=== PATIENT | female | born 1985 | race Caucasian/White ===

== ENCOUNTER → 2016-08-08 | Outpatient (CLI) | payer MEDICAID ==
[~2016-08-08] MED LIST: ALPR0.254; AMOX1TAB12; BUTA1CAP45 PO; CIPR500T78 PO; CPR500T PO; CYCL10TA9; ESTR1TAB24; HYDR-1231 PO; HYDR-3816; IBP800T PO; METO25TA2 PO; METR500T PO; NAPR500T3 PO; OXYC5TAB71; POLY17PO6 PO; SULF1TAB35 PO; TRAM-42 PO; TRAM50TA2 PO; ZOFRAN SL
--- NOTE | 2016-08-08 11:50 | Diagnostic Imaging Report ---
EXAMINATION: Right breast ultrasound. INDICATION: Right breast pain since 2016 when the patient had pain in the right breast. Also light shining through the right breast implant shows a dark area in the upper aspect of the implant. FINDINGS: The four-quadrants and retroareolar region of the right breast were scanned with no underlying abnormality identified. The implant appears within normal limits although the deeper layers of the implant are not well evaluated by ultrasound. IMPRESSION: No suspicious abnormality. MRI could be considered for further evaluation. ACR BI-RADS Category 1: Negative. Dictated by: Dictated on workstation # [id number]
== END ==
LOC: RAD 07:41
PROVIDERS: ATTEND Family Medicine
DX: N64.4 Mastodynia (principal)
CPT/HCPCS: 76641

== ENCOUNTER → 2016-08-29 | Outpatient (CLI) | payer MEDICAID ==
[~2016-08-29] MED LIST changes: +GADOBUTROL 7.5 MMOL/7.5 ML (GADAVIST) VIAL IV ONE; -NAPR500T3 PO; +NAPR500T4 PO
--- NOTE | 2016-08-29 18:25 | Diagnostic Imaging Report ---
TECHNIQUE: Utilizing 1.5 Peyton magnet, patient was placed in a prone position with 8-channel dual breast coil utilized. Axial STIR precontrasted image and axial T1 fat-sat postcontrast high-resolution images obtained. Sagittal T2-weighted images precontrast, bilaterally, as well. Sagittal vibrant temporal images were obtained pre and post contrast with bolus technique utilized of gadolinium. Images are postcontrast immediately and subsequently for 7 minutes. Pre and post contrasted images are then evaluated with [employer] for evaluation of possible angiogenesis. COMPARISON: Ultrasound dated 08/08/2016. INDICATION: Family history of breast cancer, implant rupture. FINDINGS: Post surgical changes of a bilateral mastectomy are noted. Bilateral subpectoral silicone implants are identified. There is no evidence of intracapsular or extracapsular rupture. No significant axillary or internal mammary adenopathy. Increased T2 weighted signal is noted within the posterior depth of the upper inner quadrant of the left breast. This is associated with mild non mass enhancement within the region. This region measures 2.1 x 0.8 cm. No additional suspicious mass or non-mass enhancement within either breast. IMPRESSION: 1. Non-mass enhancement with associated T2 hyperintense signal within the posterior depth of the upper inner quadrant of the left breast is probably benign. Given appearance, this is favored to simply relate to contusion. Recommend a targeted left breast ultrasound for further evaluation. If no sonographic abnormality is identified at this location, a followup breast MRI is recommended in six months to monitor stability. 2. No evidence of implant rupture associated with the bilateral subpectoral silicone implant. BI-RADS category 0: Incomplete, need additional imaging. FOLLOWUP: Second look ultrasound of the upper inner quadrant of the left breast as described above. Dictated by: Dictated on workstation # [id number]
== END ==
LOC: RAD 10:40
PROVIDERS: ATTEND Nurse Practitioner Community Health
DX: Z98.82 Breast implant status; Z80.3 Family history of malignant neoplasm of breast; R92.8 Other abnormal and inconclusive findings on diagnostic imaging of breast
CPT/HCPCS: 77059

== ENCOUNTER → 2016-10-19 | Outpatient (CLI) | payer MEDICAID ==
[~2016-10-19] MED LIST changes: -GADOBUTROL 7.5 MMOL/7.5 ML (GADAVIST) VIAL IV ONE
--- NOTE | 2016-10-19 22:31 | Diagnostic Imaging Report ---
Ultrasound of the left breast INDICATION: Followup MRI The MRI breast exam performed on 08/29/16 noted a small area of non-mass enhancement with associated T2 hyperintense signal in the posterior depth of the upper inner quadrant of the left breast. This finding was felt to be most likely benign but a targeted ultrasound exam of this are was recommended for further study. On this study, there is no discrete solid or cystic mass identified in this area and there is no abnormal shadowing. I suspect that the finding of the MRI exam was indeed benign. However, I would concur with the recommendation of the MRI there was no sonographic abnormality identified, a followup MRI breast exam in 6 months would be obtained for continued evaluation. IMPRESSION: 1. There is no evidence of malignancy and there is no abnormality to correspond to the area of altered signal seen on the MRI exam. A six-month followup MRI exam would be recommended for continued evaluation. 2. These results were discussed with [place] at PIERO Stewart's office. ACR BI-RADS Category 3: Probably benign findings. Dictated by: Dictated on workstation # [id number]
== END ==
LOC: RAD 09:59
PROVIDERS: ATTEND Nurse Practitioner Community Health
DX: N64.59 Other signs and symptoms in breast (principal)
CPT/HCPCS: 76642

== ENCOUNTER 2017-04-27 18:25 | Emergency (ER) | payer MEDICAID ==
[~2017-04-27] VITALS: Ht 162.6 cm; Wt 73.5 kg
[~2017-04-27 18:25] MED LIST changes: +HYDR-34; -HYDR-3816; +NAPR-915 PO; -NAPR500T4 PO
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
--- OUTSIDE RECORDS SUMMARY | 2017-04-27 18:30 | XMS REPORT | Clinical Summary ---
Author Author [facility] Organization [facility] Address Unknown Phone Unavailable Care Team Providers Care Flight Manager Name Role Phone Vivi Akbar PA-C Unavailable Nolan Cordero PCP Berenice Polk Unavailable Unavailable Artie Anders DO Unavailable Jess Howard MD Unavailable Alva Grant RN Unavailable Unavailable Celine Freeman RN Unavailable Unavailable Mychart, Generic Provider Unavailable Unavailable Meg Lee MD Unavailable Unavailable Jessica Diane RN Unavailable Unavailable Jessica Dia RN Unavailable Unavailable Niyah Bee RN Unavailable Unavailable Deepa Montes RN Unavailable Unavailable Kasey Lawrence LPN Unavailable Unavailable Elina Beard APRN Unavailable Priscilla Delong RN Unavailable Unavailable Gordon Geronimo MD Unavailable Vania Flores PA-C Unavailable Ramya Polk RN Unavailable Unavailable Gege Flores RN Unavailable Unavailable Leida Cervantes Unavailable Source Comments Some departments are not documenting in the electronic medical record. If you do not see the information that you expected, contact Release of Information in the Health Information Management department at [phone] for further assistance in locating additional records.[facility] Allergies Active Allergy Reactions Severity Noted Date Comments Aspartame VOMITING, NAUSEA AND Medium 07/31/2013 VOMITING Ondansetron Hcl (Pf) EYE IRRITATION, NAUSEA 01/01/2014 AND VOMITING Current Medications Prescription Sig. Disp. Refills Start End Date Status Date estradiol (ESTRACE) 1 mg Take one tablet daily for 90 Tab 3 06/25/19 Active tablet 3 weeks, off one week and 15 repeat. fluconazole (DIFLUCAN) Take one tablet by mouth 1 Tab 1 07/23/19 Active 150 mg tablet for one dose. June repeat 15 in 3 days. 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 Bilateral nipple sparing mastectomy/Patti ([facility]) 09/26/13 2. Exchange of Patti for silicone implants, 01/07/14 HISTORY: Ms. Mcfarland is a 28 yo, female who [facility]2013 for discussion of prophylactic mastectomy for her BRCA 2 mutation of uncertain significance. She underwent bilateral nipple sparing mastectomy/Patti ([facility]) 09/26/13. Final pathology revealed an intraductal papilloma in the right breast with fibrocystic changes. In the left breast it showed fibrocystic changes. No evidence of malignancy. BREAST IMAGING: Mammogram: Bilateral diagnostic mammogram 04/18/13 ([facility]) revealed extremely dense breast tissue. There were no definite lesions or calcifications. Ultrasound: Right breast ultrasound 04/18/13 ([facility]) was performed for a 6 month follow up of an abnormal right ultrasound on 11/06/12. There was a 1.2 cm cystic biloped lesion with septation at 11:00. There wass nearby blood flow from a vessel passing in the vicinity of the lesion. It did not appear to be suspicious. MRI: Bilateral breast MRI 04/24/13 ([facility]) revealed extremely dense breast tissue with moderate background enhancement. There was no enhancing mass or lesion in either breast. Small nonspecific enhancing foci were noted in the right breast retroareolar measuring 4 mm. 6 month follow up MRI was recommended. REPRODUCTIVE HEALTH: Age at first Menarche: 12 Age at First Live : 23 Age at Menopause: premenopausal : 1 Para: 1 : 2.5 months PERTINENT PMH: Followed by gate manager for palpitations FAMILY HISTORY: Mother with breast and ovarian cancer in her 20s, maternal aunt with breast and ovarian cancer in her 20s, maternal grandmother with breast cancer in her 50s PHYSICAL EXAM on PRESENTATION: Left breast- 1cm soft mobile mass at 3:00, Right breast- 1 x 2 cm soft mobile mass at 12:00 REFERRED BY: Gurvinder Ramsey APRN Resolved Problems Problem Noted Date Resolved Date Breast pain 10/14/2013 04/18/2014 Family History Medical History Relation Name Comments Cancer-Breast Maternal Aunt in 20s (dx with ovarian also) Cancer-Ovarian Maternal Aunt in 20s Cancer Maternal Grandfather Cancer-Lung Maternal Grandfather Cancer-Breast Maternal in 50s Grandmother Heart Attack Maternal Grandmother Cancer-Breast Mother in 20s Cancer-Ovarian Mother in 20s Diabetes Paternal Grandfather Cancer Paternal Grandmother Relation Name Status Comments Maternal Aunt Maternal Aunt Maternal Grandfather Maternal Grandmother Mother Paternal Grandfather Paternal Grandmother Social History Tobacco Use Types Packs/Day Years Used Date Former Smoker Cigarettes 0.5 10 Quit: 07/19/2013 Smokeless Tobacco: Never Used Alcohol Use Drinks/Week oz/Week Comments Yes 3 a month average Sex Assigned at Date Recorded Not on file Last Filed Vital Signs Vital Sign Reading Time Taken Blood Pressure 94/53 10/03/2014 9:20 AM CDT Pulse 78 10/03/2014 9:20 AM CDT Temperature 36.7 C (98.1 F) 07/22/2014 10:57 AM CDT Respiratory Rate 16 04/18/2014 11:38 AM HEALTH EDITOR Oxygen Saturation 100% 07/22/2014 10:57 AM CDT Inhaled Oxygen - - Concentration Weight 62.1 kg (137 lb) 10/03/2014 9:20 AM CDT Height 162.6 cm (5' 4.02") 07/22/2014 10:57 AM CDT Body Mass Index 23.5 10/03/2014 9:20 AM CDT Plan of Treatment Health Maintenance Due Date Last Done Comments PHYSICAL (COMPREHENSIVE) 09/18/1991 EXAM PERTUSSIS VACCINE 09/18/1995 TETANUS VACCINE 2001 CERVICAL CANCER SCREENING 2014 INFLUENZA VACCINE 09/20/2017 Results Not on filefrom Last 3 Months
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
--- OUTSIDE RECORDS SUMMARY | 2017-04-27 18:31 | XMS REPORT ---
Author Author DERRELL MCPHERSON [facility] eClinicalWorks Address Unknown Phone Unavailable Care Team Providers Care Cigarette Machines Mechanic Name Role Phone DERRELL MCPHERSON CP Unavailable Allergies, Adverse Reactions, Alerts Substance Reaction Event Type Zofran rash Drug Allergy Aspartame Info Not Available Drug Allergy Problems Problem Type Condition Code Onset Dates Condition Status Problem Family history of malignant neoplasm, ovary V16.41 Active Problem Routine general medical examination at health care facility V70.0 Active Problem Costochondritis 733.6 Active Problem Papanicolaou smear of cervix with low grade squamous intraepithelial lesion (LGSIL) 795.03 Active Problem Dizziness and giddiness 780.4 Active Problem Palpitations 785.1 Active Problem Unspecified symptom associated with female genital organs 625.9 Active Problem Unspecified abnormal mammogram 793.80 Active Problem Chronic fatigue R53.82 Active Problem Chest pain, unspecified 786.50 Active [...] Problem Unspecified breast screening V76.10 Active Assessment Acute non-recurrent maxillary sinusitis J01.00 Active Problem Other and unspecified ovarian cyst 620.2 Active Problem Screening for malignant neoplasm of the cervix V76.2 Active Medications Medication Code System Code Instructions Start Date End Date Status Dosage Augmentin [facility] [address]-15 875-125 MG Orally every 12 hrs Dec 22, 2015 Jan 01, 2016 1 tablet Procedures Procedure Coding System Code Date Office Visit, Est Pt., Level 3 CPT-4 69725 Dec 22, 2015 Vital Signs Date/Time: Dec 22, 2015 Cardiac Monitoring Heart Rate 86 bpm Weight 154 lbs Height 65 in BMI 25.62 Index Blood Pressure Diastolic 62 mmHg Blood Pressure Systolic 98 mmHg Results No Known Results Summary Purpose eClinicalWorks Submission
--- OUTSIDE RECORDS SUMMARY | 2017-04-27 18:31 | XMS REPORT ---
Author Author DUGLAS FARR Organization [employer]Clinical[employer] Address Unknown Phone Unavailable Care Team Providers Care Car Oiler Name Role Phone DUGLAS FARR CP Unavailable Allergies No Known Allergies Problems Problem Type Condition Code Onset Dates [...] Active Problem Unspecified breast screening V76.10 Active Problem Other and unspecified ovarian cyst 620.2 Active Problem Screening for malignant neoplasm of the cervix V76.2 Active Medications No Known Medications Results No Known Results Summary Purpose eClinicalWorks Submission
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
--- NOTE | 2017-04-27 19:24 | ED Upper Extremity ---
General Chief Complaint: Upper Extremity Stated Complaint: L THUMB/HAND INJ Nursing Triage Note: LEFT WRIST/THUMB PAIN Nursing Sepsis Screen: No Definite Risk Source: patient Exam Limitations: no limitations History of Present Illness Date Seen by Provider: Apr 27, 2017 Time Seen by Provider: 19:22 Initial Comments Patient fell at home hyperextending the left thumb. She now has limited range of motion and pain. She also struck the back of her head. No headache nausea vomiting and there was no loss of consciousness. Onset: just prior to arrival Severity: moderate Pain/Injury Location: left thumb Modifying Factors: Worse With Movement Allergies and Home Medications Allergies Coded Allergies: aspartame (Unverified Allergy, Unknown, 07/01/14) Uncoded Allergies: ZOFRAN (Allergy, Unknown, 04/27/17) Patient Home Medication List Home Medication List Reviewed: Yes Constitutional: see HPI EENTM: see HPI Respiratory: no symptoms reported Cardiovascular: no symptoms reported Genitourinary: no symptoms reported Musculoskeletal: no symptoms reported Skin: no symptoms reported Psychiatric/Neurological: No Symptoms Reported (years) Past Kmhlyin-Spdkig-Bjmuez Hx Patient Social History Alcohol Use: Rarely Uses Recreational Drug Use: No Smoking Status: Former Smoker Type Used: Cigarettes Recent Foreign Travel: No Contact w/Someone Who Travel: No Recent Infectious Disease Expo: No Recent Hopitalizations: No Immunizations Up To Date Tetanus Booster (TDap): Less than 5yrs PED Vaccines UTD: Yes Date of Influenza Vaccine: Feb 20, 2013 Seasonal Allergies Seasonal Allergies: No Surgeries History of Surgeries: Yes (LEEP, MASTECTOMY, BREAST RECONSTRUCTION, WISDOM TEETH, LAPAROSCOPY) Surgeries: Abdominal, Adenoidectomy, Breast, Hysterectomy, Lumpectomy, Oophorectomy, Orthopedic, Tonsillectomy Respiratory History of Respiratory Disorde: Yes Respiratory Disorders: Asthma Cardiovascular History of Cardiac Disorders: Yes Cardiac Disorders: Irregular Heartbeat, Palpitations Neurological History of Neurological Disord: Yes Neurological Disorders: Headaches /Migraines Reproductive System : No Hx 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 +) Sexually Transmitted Disease: No HIV/AIDS: No LEGAL REFEREE History: Hysterectomy Genitourinary History of Genitourinary Disor: No Gastrointestinal History of Gastrointestinal Di: No Musculoskeletal History of Musculoskeletal Dis: Yes Musculoskeletal Disorders: Arthritis Endocrine History of Endocrine Disorders: No HEENT History of HEENT Disorders: No Cancer History of Cancer: No (BRCA GENE + CARRIER) Psychosocial History of Psychiatric Problem: Yes Behavioral Health Disorders: Anxiety Integumentary History of Skin or Integumenta: No Blood Transfusions History of Blood Disorders: No Adverse Reaction to a Blood Tr: No Physical Exam Vital Signs Vital Signs - First Documented 04/27/17 18:55 Temp 98.2 Pulse 79 Resp 16 B/P (MAP) 107/59 (75) Pulse Ox 100 O2 Delivery Room Air Capillary Refill : Less Than 3 Seconds General Appearance: WD/WN, no apparent distress HEENT: PERRL/EOMI, normal ENT inspection, other (There is no palpable scalp hematoma or depressed skull fracture or bleeding or laceration) Neck: non-tender, full range of motion Cardiovascular: regular rate, rhythm, no murmur Respiratory: normal breath sounds, no respiratory distress, no accessory muscle use Gastrointestinal: normal bowel sounds, non tender Shoulder: normal inspection, non-tender Elbow/Forearm: normal inspection, non-tender, Left Wrist: Yes normal inspection, Yes non-tender Hand: Left, limited ROM (limited range of motion as far as flexion and extension is concerned with the thumb. She is however able to do both of these things. There is a bit of swelling circumferentially about the thumb. No ecchymosis.) Neurologic/Tendon: normal sensation, normal motor functions, normal tendon functions Neurologic/Psychiatric: alert, normal mood/affect, oriented x 3 Skin: normal color, warm/dry Progress/Results/Core Measures Results/Orders My Orders Orders - ELMO DUNCAN APRN Hand, Left, 3 Views (04/27/17 19:21) Vital Signs/I&O Vital Sign - Last 12Hours 04/27/17 18:55 Temp 98.2 Pulse 79 Resp 16 B/P (MAP) 107/59 (75) Pulse Ox 100 O2 Delivery Room Air Blood Pressure Mean: 75 Departure Communication (Admissions) Progress Notes Based on her absence of symptoms concerning for intracranial hemorrhage there is no value in getting a CT scan of the head.NAME: SARAHSERINA MED REC#: [id number] PT STATUS: REG ER : 1985 PHYSICIAN: ELMO DUNCAN APRN ADMIT DATE: 04/27/17/ER Draft Date of Exam:04/27/17 HAND, LEFT, 3 VIEWS Clinical indication: Patient fell off trampoline and complains of pain in first digit. Exam: X-ray of the left hand, 3 views. Comparison: None. Findings: There is no acute fracture or dislocation. There is no significant bone or joint abnormality. The scapholunate interval is within normal limits. First digit shows no gross abnormality. Impression: There is no acute fracture or dislocation. Dictated on workstation # [id number] Dict: 04/27/171941 Trans: 04/27/171945 [facility] [id number] Interpreted by: RAMANA DODGE MD Electronically signed by: Impression Impression: Primary Impression: Thumb sprain Disposition: 01 HOME, SELF-CARE Condition: Stable Departure-Patient Inst. Decision time for Depature: 19:23 Referrals: DUGLAS FARR (PCP/Family) Primary Care Physician Patient Instructions: Sprained Thumb Add. Discharge Instructions: Return to ER for any concerns 2. Follow-up with your doctor next weekAll discharge instructions reviewed with patient and/or family. Voiced understanding. ELMO DUNCAN APRN Apr 27, 2017 19:24
--- NOTE | 2017-04-27 19:46 | Diagnostic Imaging Report ---
Clinical indication: Patient fell off trampoline and complains of pain in first digit. Exam: X-ray of the left hand, 3 views. Comparison: None. Findings: There is no acute fracture or dislocation. There is no significant bone or joint abnormality. The scapholunate interval is within normal limits. First digit shows no gross abnormality. Impression: There is no acute fracture or dislocation. Dictated by: Dictated on workstation # [id number]
[2017-04-27 19:53] VITALS: BP 107/59
[2017-04-28] MEDS ORDERED: HYDR-757 PO (15:16)
== END 2017-04-27 19:52 | disposition home or self-care (01) ==
LOC: EDUNIT# 18:25 → ER 18:27
DX: S63.602A Unspecified sprain of left thumb, initial encounter (principal); J45.909 Unspecified asthma, uncomplicated; G43.909 Migraine, unspecified, not intractable, without status migrainosus; F41.9 Anxiety disorder, unspecified; Z90.710 Acquired absence of both cervix and uterus; Z90.89 Acquired absence of other organs; Z91.09 Other allergy status, other than to drugs and biological substances; Z87.891 Personal history of nicotine dependence; Z88.8 Allergy status to other drugs, medicaments and biological substances; W18.30XA Fall on same level, unspecified, initial encounter; X50.0XXA Overexertion from strenuous movement or load, initial encounter; Y92.009 Unspecified place in unspecified non-institutional (private) residence as the place of occurrence of the external cause
CPT/HCPCS: 73130

== ENCOUNTER 2017-04-28 13:06 | Emergency (ER) | payer MEDICAID ==
[~2017-04-28] VITALS: Ht 162.6 cm; Wt 73.5 kg
[2017-04-28] MEDS ORDERED: morphine INJ 10 MG/ML 1ML (SYR OR VIAL) ONE (13:12)
--- NOTE | 2017-04-28 13:29 | ED Lower Extremity ---
General Chief Complaint: Trauma-Non Activation Stated Complaint: BACK PAIN-THROWN FROM HORSE Nursing Triage Note: was thrown from horse. pain to lumbar, rt hip and upper neck. collar in place History of Present Illness Date Seen by Provider: Apr 28, 2017 Time Seen by Provider: 13:23 Initial Comments Patient is a 31-year-old female who arrived by [facility] to the emergency room with reports of being bucked off horse. Patient is alert and oriented at this time patient denies LOC, she states that she landed on her right hip and complains of lower back pain and right hip pain, she states that she did hit her head when she fell. Location Injury Occurred: home Onset: just prior to arrival Pain/Injury Location: right hip Method of Injury: fell, other (bucked off a horse) Modifying Factors: Improves With Immobilization Allergies and Home Medications Allergies Coded Allergies: aspartame (Unverified Allergy, Unknown, 07/01/14) Uncoded Allergies: ZOFRAN (Allergy, Unknown, 04/27/17) Patient Home Medication List Home Medication List Reviewed: Yes Constitutional: no symptoms reported, see HPI EENTM: see HPI, no symptoms reported Respiratory: no symptoms reported, see HPI Cardiovascular: no symptoms reported, see HPI Gastrointestinal: no symptoms reported, see HPI Genitourinary: no symptoms reported, see HPI Musculoskeletal: joint pain (right hip.), neck pain, other Skin: no symptoms reported, see HPI Psychiatric/Neurological: No Symptoms Reported, See HPI ( regular feeds and PND ) Past Lnmgabd-Diphpf-Jwegas Hx Patient Social History Alcohol Use: Denies Use Recreational Drug Use: No Type Used: Cigarettes Recent Hopitalizations: No Physical Abuse: No Sexual Abuse: No Mistreated: No Fear: No Immunizations Up To Date Tetanus Booster (TDap): Less than 5yrs PED Vaccines UTD: Yes Date of Influenza Vaccine: Feb 20, 2013 Seasonal Allergies Seasonal Allergies: No Surgeries History of Surgeries: Yes (LEEP, MASTECTOMY, BREAST RECONSTRUCTION, WISDOM TEETH, LAPAROSCOPY) Surgeries: Abdominal, Adenoidectomy, Breast, Hysterectomy, Lumpectomy, Oophorectomy, Orthopedic, Tonsillectomy Respiratory History of Respiratory Disorde: Yes Respiratory Disorders: Asthma Cardiovascular History of Cardiac Disorders: Yes Cardiac Disorders: Irregular Heartbeat, Palpitations Neurological History of Neurological Disord: Yes Neurological Disorders: Headaches /Migraines Reproductive System Hx 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 +) Sexually Transmitted Disease: No HIV/AIDS: 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 Genitourinary History of Genitourinary Disor: No Gastrointestinal History of Gastrointestinal Di: No Musculoskeletal History of Musculoskeletal Dis: Yes Musculoskeletal Disorders: Arthritis Endocrine History of Endocrine Disorders: No HEENT History of HEENT Disorders: No Cancer History of Cancer: No (BRCA GENE + CARRIER) Psychosocial History of Psychiatric Problem: Yes Behavioral Health Disorders: Anxiety Suicide Risk Score: 0 Integumentary History of Skin or Integumenta: No Blood Transfusions History of Blood Disorders: No Adverse Reaction to a Blood Tr: No Physical Exam Vital Signs Vital Signs - First Documented 04/28/17 13:08 Temp 97.9 Pulse 80 Resp 18 B/P (MAP) 122/72 (89) Pulse Ox 100 Capillary Refill : General Appearance: WD/WN, no apparent distress HEENT: PERRL/EOMI, normal ENT inspection Neck: normal inspection, other (in rigid cervical collar.) Cardiovascular: normal peripheral pulses, regular rate, rhythm, no edema, no gallop, no JVD, no murmur Respiratory: chest non-tender, lungs clear, normal breath sounds, no respiratory distress Gastrointestinal: normal bowel sounds, non tender, soft Back: normal inspection (lumbar tenderness on palpation) Hips: right hip normal inspection, right hip pain Legs: bilateral leg non-tender Knees: bilateral knee non-tender Ankles: bilateral ankle non-tender Feet: bilateral foot non-tender Neurologic/Tendon: normal sensation Neurologic/Psychiatric: no motor/sensory deficits, alert, normal mood/affect, oriented x 3 Skin: normal color, warm/dry Lymphatic: no adenopathy Comments Patient was given 4 mg of morphine on arrival to emergency room for pain, patient arrived on a spine board and in a rigid cervical collar. C-spine was maintained patient was log rolled and and patient was very tender in the lumbar spine on palpation. Progress/Results/Core Measures Results/Orders Lab Results Laboratory Tests Test 04/28/17 14:09 Range/Units White Blood Count 18.0 H 4.3-11.0 10^3/uL Red Blood Count 4.07 L 4.35-5.85 10^6/uL Hemoglobin 12.1 11.5-16.0 G/DL Hematocrit 35 35-52 % Mean Corpuscular Volume 86 80-99 FL Mean Corpuscular Hemoglobin 30 25-34 PG Mean Corpuscular Hemoglobin Concent 35 32-36 G/DL Red Cell Distribution Width 12.7 10.0-14.5 % Platelet Count 283 130-400 10^3/uL Mean Platelet Volume 9.7 7.4-10.4 FL Neutrophils (%) (Auto) 85 H 42-75 % Lymphocytes (%) (Auto) 8 L 12-44 % Monocytes (%) (Auto) 6 0-12 % Eosinophils (%) (Auto) 0 0-10 % Basophils (%) (Auto) 0 0-10 % Neutrophils # (Auto) 15.3 H 1.8-7.8 X 10^3 Lymphocytes # (Auto) 1.5 1.0-4.0 X 10^3 Monocytes # (Auto) 1.1 H 0.0-1.0 X 10^3 Eosinophils # (Auto) 0.0 0.0-0.3 10^3/uL Basophils # (Auto) 0.0 0.0-0.1 10^3/uL Neutrophils % (Manual) 85 % Lymphocytes % (Manual) 10 % Monocytes % (Manual) 3 % Eosinophils % (Manual) 0 % Basophils % (Manual) 0 % Band Neutrophils 2 % Blood Morphology Comment NORMAL Sodium Level 138 135-145 MMOL/L Potassium Level 3.6 3.6-5.0 MMOL/L Chloride Level 105 98-107 MMOL/L Carbon Dioxide Level 26 21-32 MMOL/L Anion Gap 7 5-14 MMOL/L Blood Urea Nitrogen 20 H 7-18 MG/DL Creatinine 0.77 0.60-1.30 MG/DL Estimat Glomerular Filtration Rate > 60 BUN/Creatinine Ratio 26 Glucose Level 95 70-105 MG/DL Calcium Level 9.3 8.5-10.1 MG/DL Total Bilirubin 0.6 0.1-1.0 MG/DL Aspartate Amino Transf (AST/SGOT) 36 H 5-34 U/L Alanine Aminotransferase (ALT/SGPT) 29 0-55 U/L Alkaline Phosphatase 82 40-136 U/L Total Protein 7.6 6.4-8.2 GM/DL Albumin 4.4 3.2-4.5 GM/DL My Orders Orders - ELMO DUNCAN APRN Morphine Injection (Morphine Injection (04/28/17 13:30) Ct Lumbar Spine Wo (04/28/17 13:16) Ct Head/Cervical Spine Wo (04/28/17 13:16) Pelvis With Right Hip 2-3views (04/28/17 13:16) Cbc With Automated Diff (04/28/17 13:16) Comprehensive Metabolic Panel (04/28/17 13:16) Manual Differential (04/28/17 14:09) Medications Given in ED Current Medications Medications Dose Ordered Sig/Devante Route Start Time Stop Time Status Last Admin Dose Admin Morphine Sulfate 10 mg STK-MED ONCE .ROUTE 04/28/17 13:12 04/28/17 13:15 DC 04/28/17 13:18 10 MG Vital Signs/I&O Vital Sign - Last 12Hours 04/28/17 13:08 Temp 97.9 Pulse 80 Resp 18 B/P (MAP) 122/72 (89) Pulse Ox 100 Departure Communication (Admissions) Progress Notes CT scan shows a zone 2 sacral fracture on the left. I discussed this with Dr. Barker nylon mender for orthopedic surgery. Recommends at this is an incomplete fracture she can be weightbearing as tolerated, pain control. There was no mention of complete versus incomplete and CT reports I then spoke with Dr. Barrett from radiology. He believes this to be an incomplete fracture. Impression Impression: Primary Impression: Sacral fracture Disposition: 01 HOME, SELF-CARE Condition: Stable Departure-Patient Inst. Decision time for Depature: 15:14 Referrals: JOSE VENTURA MD, WILLIAM T ARNP (PCP) Primary Care Physician CONG LEVINE JONATHAN MD IPSEN,NUNO AYON,MANI AGUSTIN,JUAN ANTONIO FINNEGAN MD, MICHAEL P MD Patient Instructions: NO INSTRUCTIONS GIVEN Add. Discharge Instructions: 1. Weightbearing as tolerated 2. Pain medication as directed 3. No horseback riding, physical activity such as bicycle riding, ATV riding or sports for the next 6-8 weeks. Follow-up with orthopedics. Call the orthopedic surgeons listed on Monday to make an appointment to be seen within the next few weeks. Return to ER for any worsened pains, numbness, loss of bowel or bladder control, loss of sensation of your genitals or other concerns. All discharge instructions reviewed with patient and/or family. Voiced understanding. Scripts Hydrocodone/Acetaminophen ([place] 5-325 Tablet) 1 Each Tablet 1 EACH PO Q4H Y for PAIN-MODERATE TO SEVERE, #60 TAB Prov: ELMO DUNCAN APRN 04/28/17 ELMO DUNCAN APRN Apr 28, 2017 13:29
[2017-04-28] MEDS ORDERED: morphine INJ 10 MG/ML 1ML (SYR OR VIAL) IVP ONE ×2 (13:30→15:30)
--- NOTE | 2017-04-28 14:03 | Diagnostic Imaging Report ---
INDICATION: Pelvic pain status post injury COMPARISON: None. FINDINGS: AP view of the pelvis and 2 dedicated radiographic views of the right hip were obtained. There is no fracture, dislocation, bone destruction, or radiopaque foreign body. No significant degenerative changes are present in the hip joints. The visualized pelvic osseous structures and the SI joints demonstrate no acute fracture or dislocation. There is no bone destruction or radiopaque foreign body. The surrounding soft tissue structures are unremarkable. IMPRESSION: 1. No acute fracture or dislocation in the pelvis or right hip joint. Dictated by: Dictated on workstation # [id number]
--- NOTE | 2017-04-28 14:14 | Diagnostic Imaging Report ---
PROCEDURE: CT lumbar spine without contrast. TECHNIQUE: Multiple contiguous axial images were obtained through the lumbar spine without the use of intravenous contrast. Sagittal and coronal reformations were then performed. INDICATION: Low back pain after fall from horse. Comparison: CT from 12/25/2015 FINDINGS: For the purposes of this exam there are five lumbar type vertebral bodies with the last well formed disk space designated L5-S1. There is normal alignment of the lumbar spine without significant spondylolisthesis. The vertebral body heights are preserved. The disc heights are preserved. No bony fragments or hyperdense fluid collections are seen in the spinal canal. No prevertebral or paraspinous masses are seen. There is a minimally displaced fracture of the left sacrum, which extends into the left S2-3 neuroforamen (image 55 series 5). Level specific: L1/L2: No spinal canal or foraminal stenosis. L2/L3: Minimal diffuse disc bulge, no spinal canal or foraminal stenosis. L3/L4: Minimal diffuse disc bulge. No spinal canal or foraminal stenosis. L4/L5: Diffuse disc bulge. No spinal canal stenosis. Mild to moderate right and moderate left foraminal stenosis. L5/S1: Disc bulge, no spinal canal or foraminal stenosis. IMPRESSION: 1. Minimally displaced zone 2 fracture of the left sacrum. 2. Mild degenerative disc disease at L4-5 resulting in moderate left foraminal stenosis. No spinal canal stenosis. Dictated by: Dictated on workstation # [id number]
[2017-04-28 14:15] LABS: BASOPHILS % (AUTO) 0 % (0-10); EOSINOPHILS % (AUTO) 0 % (0-10); HEMATOCRIT 35 % (35-52); HEMOGLOBIN 12.1 G/DL (11.5-16.0); LYMPHOCYTES # (AUTO) 1.5 X 10^3 (1.0-4.0); LYMPHOCYTES % (AUTO) 8 % (12-44); MEAN CORPUSCULAR HEMOGLOBIN 30 PG (25-34); MEAN CORPUSCULAR HGB CONC 35 G/DL (32-36); MEAN CORPUSCULAR VOLUME 86 FL (80-99); MEAN PLATELET VOLUME 9.7 FL (7.4-10.4); MONOCYTES # (AUTO) 1.1 X 10^3 (0.0-1.0); MONOCYTES % (AUTO) 6 % (0-12); NEUTROPHILS # (AUTO) 15.3 X 10^3 (1.8-7.8); NEUTROPHILS % (AUTO) 85 % (42-75); PLATELET COUNT 283 10^3/uL (130-400); RED BLOOD COUNT 4.07 10^6/uL (4.35-5.85); RED CELL DISTRIBUTION WIDTH 12.7 % (10.0-14.5)
--- NOTE | 2017-04-28 14:15 | Diagnostic Imaging Report ---
PROCEDURE: CT head and CT cervical spine without contrast. TECHNIQUE: Multiple contiguous axial images were obtained through the brain and cervical spine without the use of intravenous contrast. Sagittal and coronal reformations through the cervical spine were then performed. INDICATION: Patient was thrown from a horse, complaining of head and neck pain. Comparison is made with prior CT of the brain and cervical spine from 04/12/2013. CT BRAIN: The ventricles and sulci are within normal limits. No sulcal effacement is identified. No midline shift is seen. There is no acute intra-axial or extra-axial hemorrhage. Cisterns are patent. The visualized paranasal sinuses are clear. IMPRESSION: No acute intracranial process is detected. CT CERVICAL SPINE: Curvature and alignment is normal. Prevertebral tissues are normal. No fracture or subluxation is identified. The odontoid is intact. IMPRESSION: No acute bony abnormality is detected. Dictated by: Dictated on workstation # [id number]
[2017-04-28 14:30] LABS: BAND NEUTROPHILS 2 %; BASOPHILS % (MANUAL) 0 %; EOSINOPHILS % (MANUAL) 0 %; LYMPHOCYTES % (MANUAL) 10 %; MONOCYTES % (MANUAL) 3 %; NEUTROPHILS % (MANUAL) 85 %; RBC MORPH NORMAL
[2017-04-28 14:39] LABS: ALANINE AMINOTRANSFERASE 29 U/L (0-55); ALBUMIN 4.4 GM/DL (3.2-4.5); ALKALINE PHOSPHATASE 82 U/L (40-136); BILIRUBIN,TOTAL 0.6 MG/DL (0.1-1.0); BUN/CREATININE RATIO 26; CALCIUM 9.3 MG/DL (8.5-10.1); CARBON DIOXIDE 26 MMOL/L (21-32); CHLORIDE 105 MMOL/L (98-107); CREATININE SERUM 0.77 MG/DL (0.60-1.30); GFR ESTIMATED > 60; GLUCOSE 95 MG/DL (70-105); POTASSIUM 3.6 MMOL/L (3.6-5.0); SODIUM 138 MMOL/L (135-145); TOTAL PROTEIN 7.6 GM/DL (6.4-8.2)
[2017-04-28] MEDS ORDERED: HYDR-757 PO (15:16)
[2017-04-28 15:43] VITALS: BP 120/71
--- OUTSIDE RECORDS SUMMARY | 2017-04-30 04:28 | XMS REPORT | Clinical Summary ---
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 [employer] Name Role Phone Vivi Akbar PA-C Unavailable Nolan Cordero PCP Berenice Polk Unavailable Unavailable Artie Anders DO Unavailable Jess Howard MD Unavailable Alva Grant RN Unavailable Unavailable Celine Freeman RN Unavailable Unavailable Mychart, Generic Provider Unavailable Unavailable eMg Lee MD Unavailable Unavailable Jessica Diane RN [...] in the Health Information Management department at [phone] for further assistance in locating additional records.[facility] Allergies Active Allergy Reactions Severity Noted Date [...] IMAGING: Mammogram: Bilateral diagnostic mammogram 04/18/13 ([facility] revealed extremely dense breast tissue. There were no definite lesions or calcifications. 

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
== END 2017-04-28 15:47 | disposition home or self-care (01) ==
LOC: EDUNIT# 13:06 → ER 13:08
DX: S32.121A Minimally displaced Zone II fracture of sacrum, initial encounter for closed fracture (principal); J45.909 Unspecified asthma, uncomplicated; G43.909 Migraine, unspecified, not intractable, without status migrainosus; F41.9 Anxiety disorder, unspecified; Z88.6 Allergy status to analgesic agent; Z91.09 Other allergy status, other than to drugs and biological substances; Z90.89 Acquired absence of other organs; Z90.710 Acquired absence of both cervix and uterus; V80.010A Animal-rider injured by fall from or being thrown from horse in noncollision accident, initial encounter
CPT/HCPCS: 36415; 70450; 72125; 72131; 80053; 85007; 85027

== ENCOUNTER 2017-07-22 01:48 | Emergency (ER) | payer MEDICAID ==
[~2017-07-22] VITALS: Ht 165.1 cm; Wt 77.1 kg
[~2017-07-22 01:48] MED LIST changes: +HYDR-757 PO
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
--- OUTSIDE RECORDS SUMMARY | 2017-07-22 01:55 | XMS REPORT | Clinical Summary ---
Author Author [facility] Organization [facility] Address Unknown Phone Unavailable Care Team Providers Care Cloud Systems Administrator Name Role Phone Vivi Akbar PA-C Unavailable [...] in the Health Information Management department at [phone] for further assistance in locating additional records.[facility] Allergies Active Allergy Reactions Severity Noted [...] IMAGING: Mammogram: Bilateral diagnostic mammogram 04/18/13 ([facility]) revealed extremely dense breast tissue. There were no definite lesions or calcifications. 

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
--- NOTE | 2017-07-22 02:09 | ED General ---
General Chief Complaint: General Problems/Pain Stated Complaint: UPPER ABD PAIN,PAIN IN NECK & SHOULDERS,COLD SWEAT Source of Information: Patient Exam Limitations: No Limitations History of Present Illness Date Seen by Provider: Jul 22, 2017 Time Seen by Provider: 01:45 Initial Comments Here with vague complaints of chest tightness, upper abdominal pain, neck and back pain, cold sweats and generally not feeling well. This is been going on for 4 days intermittently but worse tonight. Denies vomiting but does have nausea. Denies dysuria. Reports that she's had multiple tick bites. 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 Timing/Duration: 3-4 Days, Changing Over Time Severity: Moderate Modifying Factors: improves with Rest Associated Systoms: Chest Pain; No Cough, No Fever/Chills; Loss of Appetite, Nausea/Vomiting; No Shortness of Air; Weakness Allergies and Home Medications Allergies Coded Allergies: aspartame (Unverified Allergy, Unknown, 07/01/14) Uncoded Allergies: ZOFRAN (Allergy, Unknown, 04/27/17) Home Medications Hydrocodone/Acetaminophen 1 Each Tablet, 1 EACH PO Q4H PRN for PAIN-MODERATE TO SEVERE Prescribed by: ELMO DUNCAN on 04/28/17 1516 Patient Home Medication List Home Medication List Reviewed: Yes Review of Systems Constitutional: see HPI; No chills, No fever EENTM: no symptoms reported Respiratory: No cough, No short of breath Cardiovascular: chest pain (Central tightness); No edema; palpitations Gastrointestinal: No abdominal pain; nausea; No vomiting Genitourinary: No dysuria, No pain : No Musculoskeletal: no symptoms reported Skin: no symptoms reported Psychiatric/Neurological: No Symptoms Reported All Other Systems Reviewed Negative Unless Noted: Yes Past Xxmjsue-Jixifl-Tbdhjs Hx Past Med/Social Hx: Reviewed Nursing Past Med/Soc Hx Patient Social History Alcohol Use: Occasionally Uses Recreational Drug Use: No Smoking Status: Former Smoker Type Used: Cigarettes Recent Foreign Travel: No Contact w/Someone Who Travel: No Recent Hopitalizations: No Physical Abuse: No Sexual Abuse: No Mistreated: No Fear: No Immunizations Up To Date Tetanus Booster (TDap): Less than 5yrs PED Vaccines UTD: Yes Date of Influenza Vaccine: Feb 20, 2013 Seasonal Allergies Seasonal Allergies: No Past Medical History Surgeries: Yes (LEEP, MASTECTOMY, BREAST RECONSTRUCTION, WISDOM TEETH, LAPAROSCOPY) Abdominal, Adenoidectomy, Breast, Hysterectomy, Lumpectomy, Oophorectomy, Orthopedic, Tonsillectomy Respiratory: Yes Asthma Cardiac: Yes Irregular Heartbeat, Palpitations Neurological: Yes Headaches /Migraines 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 +) 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 Sexually Transmitted Disease: No HIV/AIDS: No Genitourinary: No Gastrointestinal: No Musculoskeletal: Yes Arthritis Endocrine: No HEENT: No Cancer: No (BRCA GENE + 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) Psychosocial: Yes Anxiety Nursing Suicide Risk Score: 0 Integumentary: No Blood Disorders: No Adverse Reaction/Blood Tranf: No Family Medical History Reviewed Nursing Family Hx No Pertinent Family Hx Physical Exam Vital Signs Vital Signs - First Documented 07/22/17 01:53 Temp 97.6 Pulse 74 Resp 18 B/P (MAP) 140/100 (113) Pulse Ox 100 O2 Delivery Room Air Capillary Refill : General Appearance: No Apparent Distress, WD/WN HEENT: PERRL/EOMI, Pharynx Normal Neck: Non Tender, Supple Respiratory: Lungs Clear, Normal Breath Sounds Cardiovascular: Regular Rate, Rhythm, No Murmur Gastrointestinal: Non Tender, Soft Back: Normal Inspection, No CVA Tenderness, No Vertebral Tenderness Extremity: Normal Range of Motion, Non Tender Neurologic/Psychiatric: Alert, Oriented x3 Skin: Normal Color, Warm/Dry Progress/Results/Core Measures Suspected Sepsis SIRS Temperature: Pulse: Respiratory Rate: Laboratory Tests 07/22/17 02:25: White Blood Count 7.5 Blood Pressure / Mean: Laboratory Tests 07/22/17 02:25: Creatinine 0.79, Platelet Count 316, Total Bilirubin 0.2 Results/Orders Lab Results Laboratory Tests Test 07/22/17 02:14 07/22/17 02:25 Range/Units Urine Color YELLOW Urine Clarity CLEAR Urine pH 7 5-9 Urine Specific [place] 1.010 L 1.016-1.022 Urine Protein NEGATIVE NEGATIVE Urine Glucose (UA) NEGATIVE NEGATIVE Urine Ketones NEGATIVE NEGATIVE Urine Nitrite NEGATIVE NEGATIVE Urine Bilirubin NEGATIVE NEGATIVE Urine Urobilinogen NORMAL NORMAL MG/DL Urine Leukocyte Esterase 1+ H NEGATIVE Urine RBC (Auto) NEGATIVE NEGATIVE Urine RBC NONE /HPF Urine WBC RARE /HPF Urine Squamous Epithelial Cells 0-2 /HPF Urine Crystals NONE /LPF Urine Bacteria NEGATIVE /HPF Urine Casts NONE /LPF Urine Mucus NEGATIVE /LPF Urine Culture Indicated NO White Blood Count 7.5 4.3-11.0 10^3/uL Red Blood Count 4.31 L 4.35-5.85 10^6/uL Hemoglobin 13.1 11.5-16.0 G/DL Hematocrit 38 35-52 % Mean Corpuscular Volume 88 80-99 FL Mean Corpuscular Hemoglobin 30 25-34 PG Mean Corpuscular Hemoglobin Concent 35 32-36 G/DL Red Cell Distribution Width 13.0 10.0-14.5 % Platelet Count 316 130-400 10^3/uL Mean Platelet Volume 9.8 7.4-10.4 FL Neutrophils (%) (Auto) 50 42-75 % Lymphocytes (%) (Auto) 41 12-44 % Monocytes (%) (Auto) 7 0-12 % Eosinophils (%) (Auto) 2 0-10 % Basophils (%) (Auto) 0 0-10 % Neutrophils # (Auto) 3.8 1.8-7.8 X 10^3 Lymphocytes # (Auto) 3.1 1.0-4.0 X 10^3 Monocytes # (Auto) 0.5 0.0-1.0 X 10^3 Eosinophils # (Auto) 0.2 0.0-0.3 10^3/uL Basophils # (Auto) 0.0 0.0-0.1 10^3/uL Sodium Level 141 135-145 MMOL/L Potassium Level 3.6 3.6-5.0 MMOL/L Chloride Level 106 98-107 MMOL/L Carbon Dioxide Level 22 21-32 MMOL/L Anion Gap 13 5-14 MMOL/L Blood Urea Nitrogen 15 7-18 MG/DL Creatinine 0.79 0.60-1.30 MG/DL Estimat Glomerular Filtration Rate > 60 BUN/Creatinine Ratio 19 Glucose Level 101 70-105 MG/DL Calcium Level 9.4 8.5-10.1 MG/DL Total Bilirubin 0.2 0.1-1.0 MG/DL Aspartate Amino Transf (AST/SGOT) 20 5-34 U/L Alanine Aminotransferase (ALT/SGPT) 23 0-55 U/L Alkaline Phosphatase 96 40-136 U/L C-Reactive Protein High Sensitivity 0.12 0.00-0.50 MG/DL Total Protein 8.1 6.4-8.2 GM/DL Albumin 4.8 H 3.2-4.5 GM/DL My Orders Orders - AKANKSHA GARCES MD Cbc With Automated Diff (07/22/17 02:00) Comprehensive Metabolic Panel (07/22/17 02:00) Hs C Reactive Protein (07/22/17 02:00) Ua Culture If Indicated (07/22/17 02:00) Ekg Tracing (07/22/17 02:00) Chest Pa/Lat (2 View) (07/22/17 02:00) Tick Panel With Lyme Eia (07/22/17 02:00) Vital Signs/I&O 07/22/17 01:53 Temp 97.6 Pulse 74 Resp 18 B/P (MAP) 140/100 (113) Pulse Ox 100 O2 Delivery Room Air Capillary Refill : Progress Note : Progress Note Seen and evaluated. IV, labs, UA, EKG and chest x-ray ordered. Tick panel ordered. Monitor patient. No acute findings. Doxycycline 100 mg by mouth ordered. We will continue this twice a day 10 days. If tick panel is positive , she will need additional 11 days of therapy. Discharged home with return precautions. Patient verbalize understanding instructions and agreement with plan. ECG Initial ECG Impression Date: Jul 22, 2017 Initial ECG Impression Time: 02:31 Initial ECG Rate: 58 Initial ECG Rhythm: Normal Sinus Initial ECG Comparisson: No Previous ECG Available Comment Sinus rhythm with normal axis. No evidence of ST elevation CT. No previous available for comparison. Interpreted by me. Departure Impression Primary Impression: Tick bites Qualified Codes: W57.XXXA - Bitten or stung by nonvenomous insect and other nonvenomous arthropods, initial encounter Disposition: 01 HOME, SELF-CARE Condition: Stable Departure-Patient Inst. Decision time for Depature: 03:41 Referrals: [facility] (PCP) Primary Care Physician DUGLAS FARR (Family) Primary Care Physician Patient Instructions: Insect Bites and Stings (DC), [place] Spotted Fever (DC) Add. Discharge Instructions: All discharge instructions reviewed with patient and/or family. Voiced understanding. Take medications as directed. Follow-up with your DrCyndy in a few days for recheck. Return for worse pain, fever, vomiting, weakness, breathing problems or other concerns as needed. Scripts Doxycycline Hyclate (Doxycycline Hyclate) 100 Mg Tablet 100 MG PO BID, #20 TAB 0 Refills Prov: MILI,AKANKSHA D MD 07/22/17 Work/School Note: Work Release Form Date Seen in the Emergency Department: Jul 22, 2017 Return to Work: Jul 24, 2017 Restrictions: No Restrictions AKANKSHA GARCES MD Jul 22, 2017 02:09
[2017-07-22 02:21] LABS: BILIRUBIN,URINE NEGATIVE (NEGATIVE); CLARITY,URINE CLEAR; COLOR,URINE YELLOW; GLUCOSE, URINE (UA) NEGATIVE (NEGATIVE); KETONES,URINE NEGATIVE (NEGATIVE); LEUKOCYTE ESTERASE ,URINE 1+ (NEGATIVE); NITRITE,URINE NEGATIVE (NEGATIVE); PH,URINE 7 (5-9); PROTEIN,URINE NEGATIVE (NEGATIVE); UROBILINOGEN,URINE NORMAL (NORMAL)
[2017-07-22 02:29] LABS: WBC,URINE RARE /HPF
[2017-07-22 02:30] LABS: BACTERIA,URINE NEGATIVE /HPF; SQUAMOUS EPITHELIAL CELL,UR 0-2 /HPF
[2017-07-22 02:33] LABS: BASOPHILS % (AUTO) 0 % (0-10); EOSINOPHILS # (AUTO) 0.2 10^3/uL (0.0-0.3); EOSINOPHILS % (AUTO) 2 % (0-10); HEMATOCRIT 38 % (35-52); HEMOGLOBIN 13.1 G/DL (11.5-16.0); LYMPHOCYTES # (AUTO) 3.1 X 10^3 (1.0-4.0); LYMPHOCYTES % (AUTO) 41 % (12-44); MEAN CORPUSCULAR HEMOGLOBIN 30 PG (25-34); MEAN CORPUSCULAR HGB CONC 35 G/DL (32-36); MEAN CORPUSCULAR VOLUME 88 FL (80-99); MEAN PLATELET VOLUME 9.8 FL (7.4-10.4); MONOCYTES # (AUTO) 0.5 X 10^3 (0.0-1.0); MONOCYTES % (AUTO) 7 % (0-12); NEUTROPHILS # (AUTO) 3.8 X 10^3 (1.8-7.8); NEUTROPHILS % (AUTO) 50 % (42-75); PLATELET COUNT 316 10^3/uL (130-400); RED BLOOD COUNT 4.31 10^6/uL (4.35-5.85); WHITE BLOOD COUNT 7.5 10^3/uL (4.3-11.0)
[2017-07-22 02:51] LABS: ALANINE AMINOTRANSFERASE 23 U/L (0-55); ALBUMIN 4.8 GM/DL (3.2-4.5); ALKALINE PHOSPHATASE 96 U/L (40-136); BILIRUBIN,TOTAL 0.2 MG/DL (0.1-1.0); BUN/CREATININE RATIO 19; CALCIUM 9.4 MG/DL (8.5-10.1); CARBON DIOXIDE 22 MMOL/L (21-32); CHLORIDE 106 MMOL/L (98-107); CREATININE SERUM 0.79 MG/DL (0.60-1.30); GFR ESTIMATED > 60; GLUCOSE 101 MG/DL (70-105); POTASSIUM 3.6 MMOL/L (3.6-5.0); SODIUM 141 MMOL/L (135-145); TOTAL PROTEIN 8.1 GM/DL (6.4-8.2)
[2017-07-22] MEDS ORDERED: DOXYCYCLINE 100 MG (VIBRAMYCIN) TABLET PO STA (03:38)
[2017-07-22] MEDS ORDERED: DOXY100T2 PO (03:44)
[2017-07-22 03:57] VITALS: BP 138/99
--- NOTE | 2017-07-22 07:33 | Diagnostic Imaging Report ---
INDICATION: Cough. Exam compared 07/04/2014. FINDINGS: The lungs are clear. The heart size and vascularity were normal. There is no effusion or pneumothorax. There is no free air beneath the diaphragms. No acute appearing abnormality. IMPRESSION: Stable normal two-view chest Dictated by: Dictated on workstation # [id number]
[2017-07-27] MEDS ORDERED: DOXY100T19 PO (07:43)
== END 2017-07-22 03:57 | disposition home or self-care (01) ==
LOC: EDUNIT# 01:48 → ER 01:51
DX: T14.8XXA Other injury of unspecified body region, initial encounter (principal); J45.909 Unspecified asthma, uncomplicated; F41.9 Anxiety disorder, unspecified; G43.909 Migraine, unspecified, not intractable, without status migrainosus; Z90.89 Acquired absence of other organs; Z90.710 Acquired absence of both cervix and uterus; Z87.891 Personal history of nicotine dependence; Z88.8 Allergy status to other drugs, medicaments and biological substances; Z91.09 Other allergy status, other than to drugs and biological substances; W57.XXXA Bitten or stung by nonvenomous insect and other nonvenomous arthropods, initial encounter
CPT/HCPCS: 36415; 71046; 80053; 81000; 85025; 86141; 86618; 86666; 86668; 86757; 93005

== ENCOUNTER 2017-08-21 13:36 | Emergency (ER) | payer MEDICAID ==
[~2017-08-21] VITALS: Ht 165.1 cm; Wt 75.7 kg
[~2017-08-21 13:36] MED LIST changes: +DOXY100T19 PO; +DOXY100T2 PO
[2017-08-21] MEDS ORDERED: NS IV 1000 ML 1,000 ML IV SCH (14:00)
[2017-08-21] MEDS ORDERED: PROCHLORPERAZINE 10 MG/2ML INJ (COMPAZINE) IV ONE (14:00)
[2017-08-21] MEDS ORDERED: KETOROLAC 30 MG/ML VIAL IVP ONE (14:00)
[2017-08-21] MEDS ORDERED: diphenhydrAMINE 50 MG/ML INJ (BENADRYL) IVP ONE (14:00)
[2017-08-21 14:10] LABS: BASOPHILS % (AUTO) 0 % (0-10); EOSINOPHILS # (AUTO) 0.1 10^3/uL (0.0-0.3); EOSINOPHILS % (AUTO) 1 % (0-10); HEMATOCRIT 36 % (35-52); HEMOGLOBIN 12.3 G/DL (11.5-16.0); LYMPHOCYTES # (AUTO) 2.5 X 10^3 (1.0-4.0); LYMPHOCYTES % (AUTO) 34 % (12-44); MEAN CORPUSCULAR HEMOGLOBIN 30 PG (25-34); MEAN CORPUSCULAR HGB CONC 35 G/DL (32-36); MEAN CORPUSCULAR VOLUME 87 FL (80-99); MEAN PLATELET VOLUME 10.1 FL (7.4-10.4); MONOCYTES # (AUTO) 0.6 X 10^3 (0.0-1.0); MONOCYTES % (AUTO) 8 % (0-12); NEUTROPHILS % (AUTO) 56 % (42-75); PLATELET COUNT 267 10^3/uL (130-400); RED BLOOD COUNT 4.08 10^6/uL (4.35-5.85); RED CELL DISTRIBUTION WIDTH 12.6 % (10.0-14.5); WHITE BLOOD COUNT 7.2 10^3/uL (4.3-11.0)
--- NOTE | 2017-08-21 14:10 | ED General ---
General Chief Complaint: Head/Cervical Problems Stated Complaint: MIGRAINE,HAS TICK-BORN ILLNESS DIAGNOSIS Nursing Triage Note: PT CO OF MIGRAINE RAND, PT STATES HAS EHRILICHIOSIS AND IS ON 2ND SCRIPT OF DOXY W NO IMPROVEMENT OF SX, PT CO OF RAND AND BODY ACHES, SOME R ARM TINGLING Nursing Sepsis Screen: No Definite Risk Source of Information: Patient Exam Limitations: No Limitations History of Present Illness Date Seen by Provider: Aug 21, 2017 Time Seen by Provider: 14:07 Initial Comments to ER with a multitude of ongoing complaints.She was seen here on 07/22/17 after tick bite had a tick panel drawn. She was started on doxycycline and tick panel showed elevated early ketosis IgG titer. She finished one round of doxycycline but denies improvement. Her primary care provider gave her a second round of doxycycline which she is still taking. She reports headaches constant since 07/22 and worsening in the left parietal area. Tingling in the right face and the right arm. Dizziness. Chest tightness, body aches. Shortness of breath when she goes in the sun, nausea. Timing/Duration: 1-2 Days Severity: Moderate Associated Systoms: Headaches, Malaise, Nausea/Vomiting Allergies and Home Medications Allergies Coded Allergies: aspartame (Unverified Allergy, Unknown, 07/01/14) Uncoded Allergies: ZOFRAN (Allergy, Unknown, 04/27/17) Home Medications Doxycycline Hyclate 100 Mg Tablet, 100 MG PO BID Prescribed by: AKANKSHA GARCES on 07/22/17 0344 Doxycycline Monohydrate 100 Mg Tablet, 100 MG PO BID, (Reported) Hydrocodone/Acetaminophen 1 Each Tablet, 1 EACH PO Q4H PRN for PAIN-MODERATE TO SEVERE Prescribed by: ELMO DUNCAN on 04/28/17 1516 Patient Home Medication List Home Medication List Reviewed: Yes Review of Systems Constitutional: see HPI; No chills, No fever; malaise, weakness EENTM: see HPI Respiratory: see HPI, cough (she had a brief cough this morning only and it has resolved); No hemoptysis, No orthopnea, No short of breath Cardiovascular: see HPI, chest pain; No edema, No palpitations Gastrointestinal: nausea Genitourinary: no symptoms reported Musculoskeletal: no symptoms reported Skin: no symptoms reported; No pruritus, No rash Psychiatric/Neurological: No Symptoms Reported Past Htiuqao-Bynfgm-Bjljqa Hx Patient Social History Alcohol Use: Denies Use Recreational Drug Use: No Type Used: Cigarettes Recent Foreign Travel: No Contact w/Someone Who Travel: No Recent Infectious Disease Expo: No Recent Hopitalizations: No Physical Abuse: No Sexual Abuse: No Immunizations Up To Date Tetanus Booster (TDap): Less than 5yrs PED Vaccines UTD: Yes Date of Influenza Vaccine: Feb 20, 2013 Seasonal Allergies Seasonal Allergies: No Past Medical History Surgeries: Yes (LEEP, MASTECTOMY, BREAST RECONSTRUCTION, WISDOM TEETH, LAPAROSCOPY) Abdominal, Adenoidectomy, Breast, Hysterectomy, Lumpectomy, Oophorectomy, Orthopedic, Tonsillectomy Respiratory: Yes Asthma Cardiac: Yes Irregular Heartbeat, Palpitations Neurological: Yes Headaches /Migraines 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 +) 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 Sexually Transmitted Disease: No HIV/AIDS: No Genitourinary: No Gastrointestinal: No Musculoskeletal: Yes Arthritis Endocrine: No HEENT: No Cancer: No (BRCA GENE + CARRIER) Psychosocial: Yes Anxiety Nursing Suicide Risk Score: 0 Integumentary: No Blood Disorders: No Adverse Reaction/Blood Tranf: No Family Medical History No Pertinent Family Hx Physical Exam Vital Signs Vital Signs - First Documented 08/21/17 13:59 Temp 97.9 Pulse 72 Resp 22 B/P (MAP) 129/80 (96) Pulse Ox 98 Capillary Refill : Less Than 3 Seconds General Appearance: No Apparent Distress, WD/WN Eyes: Bilateral Eye Normal Inspection, Bilateral Eye PERRL, Bilateral Eye EOMI HEENT: PERRL/EOMI, TMs Normal Neck: Full Range of Motion, Normal Inspection Respiratory: Normal Breath Sounds, No Accessory Muscle Use, No Respiratory Distress Cardiovascular: Regular Rate, Rhythm, Normal Peripheral Pulses Gastrointestinal: Normal Bowel Sounds, Non Tender, Soft Extremity: Normal Capillary Refill, Normal Inspection, Other (she moves all 4 extremities equally. She is noticed to be using her right hand to perform tasks such as moving the blood pressure cord off of her. Fine motor skills are intact.) Neurologic/Psychiatric: Alert, Oriented x3, No Motor/Sensory Deficits Skin: Normal Color, Warm/Dry Progress/Results/Core Measures Suspected Sepsis Recent Fever Within 48 Hours: No Infection Criteria Present: None New/Unexplained Altered Menta: No Sepsis Screen: No Definite Risk SIRS Temperature:97.9 Pulse: 72 Respiratory Rate: 22 Laboratory Tests 08/21/17 13:55: White Blood Count 7.2 Blood Pressure 129 /80 Mean: 96 Laboratory Tests 08/21/17 13:55: Creatinine 0.81, Platelet Count 267, Total Bilirubin 0.4 Results/Orders Lab Results Laboratory Tests Test 08/21/17 13:55 Range/Units White Blood Count 7.2 4.3-11.0 10^3/uL Red Blood Count 4.08 L 4.35-5.85 10^6/uL Hemoglobin 12.3 11.5-16.0 G/DL Hematocrit 36 35-52 % Mean Corpuscular Volume 87 80-99 FL Mean Corpuscular Hemoglobin 30 25-34 PG Mean Corpuscular Hemoglobin Concent 35 32-36 G/DL Red Cell Distribution Width 12.6 10.0-14.5 % Platelet Count 267 130-400 10^3/uL Mean Platelet Volume 10.1 7.4-10.4 FL Neutrophils (%) (Auto) 56 42-75 % Lymphocytes (%) (Auto) 34 12-44 % Monocytes (%) (Auto) 8 0-12 % Eosinophils (%) (Auto) 1 0-10 % Basophils (%) (Auto) 0 0-10 % Neutrophils # (Auto) 4.0 1.8-7.8 X 10^3 Lymphocytes # (Auto) 2.5 1.0-4.0 X 10^3 Monocytes # (Auto) 0.6 0.0-1.0 X 10^3 Eosinophils # (Auto) 0.1 0.0-0.3 10^3/uL Basophils # (Auto) 0.0 0.0-0.1 10^3/uL Erythrocyte Sedimentation Rate 15 0-20 MM/HR Sodium Level 142 135-145 MMOL/L Potassium Level 3.8 3.6-5.0 MMOL/L Chloride Level 107 98-107 MMOL/L Carbon Dioxide Level 26 21-32 MMOL/L Anion Gap 9 5-14 MMOL/L Blood Urea Nitrogen 11 7-18 MG/DL Creatinine 0.81 0.60-1.30 MG/DL Estimat Glomerular Filtration Rate > 60 BUN/Creatinine Ratio 14 Glucose Level 106 H 70-105 MG/DL Calcium Level 9.6 8.5-10.1 MG/DL Total Bilirubin 0.4 0.1-1.0 MG/DL Aspartate Amino Transf (AST/SGOT) 17 5-34 U/L Alanine Aminotransferase (ALT/SGPT) 12 0-55 U/L Alkaline Phosphatase 74 40-136 U/L C-Reactive Protein High Sensitivity 0.13 0.00-0.50 MG/DL Total Protein 7.5 6.4-8.2 GM/DL Albumin 4.6 H 3.2-4.5 GM/DL My Orders Orders - ELMO DUNCAN APRN Cbc With Automated Diff (08/21/17 13:58) Ekg Tracing (08/21/17 13:58) Comprehensive Metabolic Panel (08/21/17 13:58) Erythrocyte Sedimentation Rate (08/21/17 13:58) Hs C Reactive Protein (08/21/17 13:58) Iv Heplock-Insert (Order) (08/21/17 13:58) Ct Head Wo (08/21/17 13:58) Ua Culture If Indicated (08/21/17 13:58) Ns Iv 1000 Ml (Sodium Chloride 0.9%) (08/21/17 14:00) Ketorolac Injection (Toradol Injection) (08/21/17 14:00) Diphenhydramine Injection (Benadryl Inje (08/21/17 14:00) Prochlorperazine Injection (Compazine In (08/21/17 14:00) Medications Given in ED Current Medications Medications Dose Ordered Sig/Devante Route Start Time Stop Time Status Last Admin Dose Admin Diphenhydramine HCl 25 mg ONCE ONCE IVP 08/21/17 14:00 08/21/17 14:01 DC 08/21/17 14:16 25 MG Ketorolac Tromethamine 15 mg ONCE ONCE IVP 08/21/17 14:00 08/21/17 14:01 DC 08/21/17 14:17 15 MG Prochlorperazine Edisylate 5 mg ONCE ONCE IV 08/21/17 14:00 08/21/17 14:01 DC 08/21/17 14:19 5 MG Vital Signs/I&O 08/21/17 13:59 Temp 97.9 Pulse 72 Resp 22 B/P (MAP) 129/80 (96) Pulse Ox 98 Capillary Refill : Less Than 3 Seconds Blood Pressure Mean: 96 Departure Impression Primary Impression: General Malaise Additional Impressions: Headache Nausea Disposition: HOME, SELF-CARE Condition: Stable Departure-Patient Inst. Decision time for Depature: 15:27 Referrals: [facility] (PCP) Primary Care Physician DUGLAS FARR (Family) Primary Care Physician Patient Instructions: Headache, Adult (DC) Add. Discharge Instructions: 1. Return to ER for any concerns 2. See your doctor later this week All discharge instructions reviewed with patient and/or family. Voiced understanding. Scripts Ondansetron (Zofran Odt) 8 Mg Tab.rapdis 8 MG PO Q6H PRN for NAUSEA/VOMITING-1ST LINE, #10 TAB Prov: ELMO DUNCAN APRN 08/21/17 ELMO DUNCAN APRN Aug 21, 2017 14:10
[2017-08-21 14:28] LABS: ALANINE AMINOTRANSFERASE 12 U/L (0-55); ALBUMIN 4.6 GM/DL (3.2-4.5); ALKALINE PHOSPHATASE 74 U/L (40-136); BILIRUBIN,TOTAL 0.4 MG/DL (0.1-1.0); BUN/CREATININE RATIO 14; CALCIUM 9.6 MG/DL (8.5-10.1); CARBON DIOXIDE 26 MMOL/L (21-32); CHLORIDE 107 MMOL/L (98-107); CREATININE SERUM 0.81 MG/DL (0.60-1.30); GFR ESTIMATED > 60; GLUCOSE 106 MG/DL (70-105); POTASSIUM 3.8 MMOL/L (3.6-5.0); SODIUM 142 MMOL/L (135-145); TOTAL PROTEIN 7.5 GM/DL (6.4-8.2)
[2017-08-21 14:33] LABS: ERYTHROCYTE SEDIMENTATION RATE 15 MM/HR (0-20)
--- NOTE | 2017-08-21 15:22 | Diagnostic Imaging Report ---
PROCEDURE: CT head without contrast. TECHNIQUE: Multiple contiguous axial images were obtained through the brain without the use of intravenous contrast. INDICATION: Left-sided headache. FINDINGS: The ventricles are normal in size, shape, and position. There are no masses or hemorrhages. There are no extra-axial fluid collections. IMPRESSION: Negative CT head. Dictated by: Dictated on workstation # [id number]
[2017-08-21] MEDS ORDERED: ONDA8TAB9 PO (15:39)
[2017-08-21 15:47] VITALS: BP 129/80
== END 2017-08-21 15:47 | disposition home or self-care (01) ==
LOC: EDUNIT# 13:36 → ER 13:37
DX: R51 Headache (principal); R53.81 Other malaise; R11.0 Nausea; J45.909 Unspecified asthma, uncomplicated; G43.909 Migraine, unspecified, not intractable, without status migrainosus; F41.9 Anxiety disorder, unspecified; Z90.89 Acquired absence of other organs; Z90.710 Acquired absence of both cervix and uterus; Z90.12 Acquired absence of left breast and nipple; Z88.6 Allergy status to analgesic agent; Z88.8 Allergy status to other drugs, medicaments and biological substances
CPT/HCPCS: 36415; 70450; 80053; 85025; 85652; 86141; 93005; 96361; 96374; 96375

== ENCOUNTER 2017-11-04 13:05 | Emergency (ER) | payer MEDICAID ==
[~2017-11-04] VITALS: Ht 165.1 cm; Wt 75.7 kg
[~2017-11-04 13:05] MED LIST changes: +HYDR-4226 PO; -HYDR-757 PO; +ONDA8TAB9 PO
--- OUTSIDE RECORDS SUMMARY | 2017-11-04 13:12 | XMS REPORT | Clinical Summary ---
Author Author [facility] Organization [facility] Address Unknown Phone Unavailable Care Team Providers Care Facility Rehab Director Name Role Phone Vivi Akbar-C Unavailable Nolan Cordero PCP Berenice Polk Unavailable Unavailable Artie Anders DO Unavailable Jess Howard MD Unavailable Alva Grant RN Unavailable Unavailable Celine Freeman RN Unavailable Unavailable Mychart, Generic Provider Unavailable Unavailable Meg Lee MD Unavailable Unavailable Jessica Diane RN Unavailable Unavailable Jessica Dia RN Unavailable Unavailable Niyah Bee RN Unavailable Unavailable Deepa Montes RN Unavailable Unavailable Kasey Lawrence CLASSIFICATION ANALYST Unavailable Unavailable Elina Beard SERVICER TRAVEL TRAILERS Unavailable Priscilla Delong RN Unavailable Unavailable Gordon Geronimo MD Unavailable Unavailable Vania Flores-C Unavailable Ramya Polk RN Unavailable Unavailable Gege Flores RN Unavailable Unavailable Leida Cervantes Unavailable Source Comments Some departments are not documenting in the electronic medical record. If you do not see the information that you expected, contact Release of Information in the Health Information Management department at [phone] for further assistance in locating additional records.[facility] Allergies Active Allergy Reactions Severity Noted Date [...] IMAGING: Mammogram: Bilateral diagnostic mammogram 04/18/13 ([facility]ia [facility]) revealed extremely dense breast tissue. There were no definite lesions or calcifications. 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
--- OUTSIDE RECORDS SUMMARY | 2017-11-04 13:12 | XMS REPORT ---
Author Author DUGLAS FARR Organization [facility] Address [address] [place] [address] Care Team Providers Care Vice President Global Digital Marketing Name Role Phone DUGLAS FARR Unavailable PROBLEMS Type Condition ICD9-CM Code HIK45-KI Code Onset Dates Condition Status SNOMED Code Problem Gastroesophageal reflux disease with esophagitis K21.0 Active 545746634 Problem Anxiety F41.9 Active 11892412 Problem Chronic fatigue R53.82 Active 83071583 Problem Other abnormal and inconclusive findings on diagnostic imaging of breast R92.8 Active 490997117 Problem Lumbago with sciatica, left side M54.42 Active 261870920 ALLERGIES No Information ENCOUNTERS Encounter Location Date Diagnosis [facility] [id number] [place] [address] Sep, Right upper quadrant pain R10.11 [facility] [address] [address] Jul, [place] [address] [address] 15 Apr, 2017 Closed minimally displaced zone II fracture of sacrum with routine healing, subsequent encounter S32.121D [facility] [id number] [place] [address] Mar, Chest pain, unspecified type R07.9 ; Left-sided thoracic back pain, unspecified chronicity M54.6 and Muscle spasm of back M62.830 [facility] [id number] [place] [address] Feb, Sore throat J02.9 ; Epigastric pain R10.13 and Gastroesophageal reflux disease with esophagitis K21.0 [facility] [address] [address] Jan, [facility] [id number] [place] [address] 58217- [address] Dec, Anxiety F41.9 [facility] [id number] [place] [address]55- 0264 Nov, [facility] [address] [address] Nov, Encounter for immunization Z23 and Acute nonintractable headache, unspecified headache type R51 [facility] [address] [id number] Sep, Dental examination Z01.20 [facility] [address] [address] Sep, Breast pain, right N64.4 and Abnormal breast finding N64.59 [facility] [address] [id number] Sep, Encounter for dental examination and cleaning without abnormal findings Z01.20 [facility] [id number] [place] [address] 40528- [address]78 Sep, Abnormal breast finding N64.59 [facility] [id number] [place] [address]12- 6993 Sep, Encounter for dental examination and cleaning without abnormal findings Z01.20 [place] [id number] [place] [address] 8[address]37- [address]206 Jul, [facility] [id number] [place] [address]92- [address]77 Jul, [place] [address] [address] Jul, Family history of malignant neoplasm of breast Z80.3 and Other abnormal and inconclusive findings on diagnostic imaging of breast R92.8 [place] [address] [address] Jul, [facility] [address] [address] Jul, [facility] [id number] [place] [address] 39516- 5[address] Jul, [facility] [id number] [place] [address] 69363- 3038 Jul, [facility] [id number] [place] [address] 16483- 4755 Jul, Breast pain, right N64.4 [facility] [id number] [place] [address] 43471- 9721 Jul, [facility] [id number] [place] [address] 14918- 3468 Jul, Breast pain, right N64.4 [facility] [id number] [place] [address] 46910- 6284 June, Family history of malignant neoplasm of breast Z80.3 and Other abnormal and inconclusive findings on diagnostic imaging of breast R92.8 [facility] [id number] [place] [address] 47[address]- 3[address] June, [place] [id number] [place] [address] 02722- [address] June, Tobacco abuse Z72.0 ; Tobacco abuse counseling Z71.6 ; Foot pain, left M79.672 and Lumbago with sciatica, left side M54.42 [facility] [id number] [place] [address] 26187- 0623 Dec, Thoracic neuritis M54.14 ; Alopecia L65.9 ; Dry skin L85.3 and Family history of hypothyroidism Z83.49 [facility] [id number] [place] [address]62 -[address] Dec, Acute non-recurrent maxillary sinusitis J01.00 [facility] [id number] [place] [address] 51218- 1191 Nov, [facility] [address] [address] Nov, Near syncope R55 ; Chronic fatigue R53.82 ; Thoracic neuritis M54.14 and Family history of thyroid disease Z83.49 [facility] [address] [address] 28 Oct, 2015 Thoracic neuritis M54.14 [facility] [id number] [place] [address] 43269- 6689 Oct, Otitis media, left 382.9 and Upper respiratory infection 465.9 [facility] [id number] [place] [address] 244099- 2098 May, [facility] [id number] [place] [address] 18225- 1256 May, [facility] [id number] [place] [address] 16778- 4731 Mar, [facility] [id number] [place] [address] 81167- 5352 Mar, [facility] [id number] [place] [address] 46009- 0621 Mar, [facility] [id number] [place] [address] 68555- 0913 Mar, [facility] [id number] [place] [address] 86289- 6275 Mar, [facility] [id number] [place] [address] 01767- 6108 Mar, [facility] [id number] [place] [address] 96163- 0384 Jan, [facility] [id number] [place] [address] 614198- 8606 Jan, [facility] [id number] [place] [address] [id number]- 5355 Dec, [facility] [place] [facility] [address] [id number] [place] [address]- [address] Dec, [facility] [place] [facility] [address] [id number] [place] [address]- 9990 Mar, [facility] [place] [facility] [address] [id number] [place] [address]- 74[address] Mar, [facility] [place] [facility] [address] [id number] [address] Jan, [facility] [place] [facility] [address] [id number] [place] [address]- 0735 Jan, [facility] [place] [facility] [address] [id number] [address]- 9[address] Dec, [facility] [place] [facility] [address] [id number] [place] [address]- 3832 Dec, [facility] [place] [facility] [address] [id number] [address]- 1716 Dec, [facility] [place] [facility] [address] [id number][place] [address]- 3570 Dec, [facility] [place] [facility] [address] [id number] [address]- 8645 Dec, [facility] [place] [facility] [address] [id number][place] [address]- 3091 Dec, [facility] [place] [facility] [address] [id number], [place] [address]- 7613 Nov, [facility] [place] [facility] [address] [id number], [place] [address]- 7045 Nov, [facility] [place] [facility] [address] [id number], [place] [address]- 4583 Nov, [facility] [place] [facility] [address] [id number], [place] [address]- 3774 Nov, [facility] [place] [facility] [address] [id number] [place] [address]- 9239 Nov, 2012 [facility] [address] [id number] [place] [address]- 2047 Nov, 2012 [facility] [place] [facility] [address] [id number] [place] [address]- 9012 Nov, 2012 [facility] [place] [facility] [address] [id number] [place] [address]- 1466 Nov, 2012 [facility] [place] [facility] [address] [id number] [place] [address]- 9553 Nov, 2012 [facility] [place] [facility] [address] [id number] [place] [address]- 5074 Nov, 2012 [facility] [place] [facility] [address] [id number] [place] [address]- 0486 Nov, 2012 [facility] [place] [facility] [address] [id number] [place] [address]- 7731 Nov, 2012 [facility] [place] [facility] [address] [id number] [place] [address]- 8548 Nov, [facility] [place] [facility] [address] [id number] [place] [address]- 0506 Nov, [facility] [place] [facility] [address] [id number] [place] [address]- 3564 Nov, [facility] [place] [facility] [address] [id number] [place] [address]- 9851 Nov, 2012 [facility] [place] [facility] [address] [id number] [place] [address]- 2878 Nov, 2012 [facility] [place] [facility] [address] [id number] [place] [address]- 9092 30 Oct, 2012 [facility] [place] [facility] [address] [id number] [place] Oct, 2012 [facility] [place] [facility] [address] [id number][place] 19 Oct, 2012 [facility] [address] [id number][place] [address]- 2774 16 Oct, 2012 [facility] [address] [facility] [id number], [place] [address]- [address] 10 Oct, 2012 [facility] [address] [facility] [id number], [place] [address]- 6[address] 09 Oct, 2012 [facility] [address] [facility] [id number] [address]- 6201 02 Feb, 2012 [facility] [address] [id number], [place] [address]- 6458 11 Oct, 2011 [facility] [address] [facility] [id number] [address]- 2354 07 Oct, 2011 [facility] [address] [facility] [id number][place] [address]- 65[address] Oct, [facility] [address] [facility] [id number], [place] [address]- [address] Sep, [facility] [address] [facility] [id number], [place] [address]- 1490 Sep, [facility] [address] [facility] [id number][place] [address]- 7040 Sep, [facility] [address] [facility] [id number] [address]- 26[address] Sep, IMMUNIZATIONS No Known Immunizations SOCIAL HISTORY Never Assessed REASON FOR VISIT lab results PLAN OF CARE VITAL SIGNS MEDICATIONS Medication Instructions Dosage Frequency Start Date End Date Duration Status PredniSONE 20 MG Orally Once a day 2 tablets 24h Jul, Jul, 05 days Active RESULTS No Results PROCEDURES No Known procedures INSTRUCTIONS MEDICATIONS ADMINISTERED No Known Medications MEDICAL (GENERAL) HISTORY Type Description Date Surgical History tonsillectomy Surgical History total hysterectomy Surgical History breast reconstruction Surgical History right knee arthroscopy Surgical History bilateral mastectomy
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
[2017-11-04] MEDS ORDERED: PROCHLORPERAZINE 10 MG/2ML INJ (COMPAZINE) IM ONE (14:00)
[2017-11-04] MEDS ORDERED: KETOROLAC 60 MG/2 ML VIAL IM ONE (14:00)
[2017-11-04] MEDS ORDERED: diphenhydrAMINE 50 MG/ML INJ (BENADRYL) IM ONE (14:00)
--- NOTE | 2017-11-04 14:03 | ED Headache ---
General Stated Complaint: MIGRANE Source: patient Exam Limitations: no limitations History of Present Illness Date Seen by Provider: Nov 04, 2017 Time Seen by Provider: 14:01 Initial Comments To ER with a right-sided headache for one week. She does have associated nausea. No history of migraines. She saw primary care at [facility] at the onset of this and believe this to be her fibromyalgia acting up she states. She was going to be started on Lyrica. Denies any fevers chills or head trauma. SHe does report right sided facial swelling. Denies any dental pain Timing/Duration: 1 week Severity/Quality: moderate Location: frontal, parietal Associated Symptoms: nausea/vomiting Allergies and Home Medications Allergies Coded Allergies: aspartame (Unverified Allergy, Unknown, 07/01/14) Uncoded Allergies: ZOFRAN (Allergy, Unknown, 04/27/17) Home Medications Doxycycline Hyclate 100 Mg Tablet, 100 MG PO BID Prescribed by: AKANKSHA GARCES on 07/22/17 0344 Doxycycline Monohydrate 100 Mg Tablet, 100 MG PO BID, (Reported) Hydrocodone/Acetaminophen 1 Each Tablet, 1 EACH PO Q4H PRN for PAIN-MODERATE TO SEVERE Prescribed by: ELMO DUNCAN on 04/28/17 1516 Ondansetron 8 Mg Tab.rapdis, 8 MG PO Q6H PRN for NAUSEA/VOMITING-1ST LINE Prescribed by: ELMO DUNCAN on 08/21/17 1539 Patient Home Medication List Home Medication List Reviewed: Yes Review of Systems Review of Systems Constitutional: see HPI Eyes: No Symptoms Reported Ears, Nose, Mouth, Throat: no symptoms reported Respiratory: no symptoms reported Cardiovascular: no symptoms reported Gastrointestinal: nausea; No vomiting Genitourinary: no symptoms reported Musculoskeletal: no symptoms reported Psychiatric/Neurological: Headache Past Kbottkn-Okszrn-Iokhou Hx Patient Social History Type Used: Cigarettes Recent Foreign Travel: No Contact w/Someone Who Travel: No Recent Hopitalizations: No Immunizations Up To Date Tetanus Booster (TDap): Less than 5yrs PED Vaccines UTD: Yes Date of Influenza Vaccine: Feb 20, 2013 Seasonal Allergies Seasonal Allergies: No Past Medical History Surgeries: Yes (LEEP, MASTECTOMY, BREAST RECONSTRUCTION, WISDOM TEETH, LAPAROSCOPY) Abdominal, Adenoidectomy, Breast, Hysterectomy, Lumpectomy, Oophorectomy, Orthopedic, Tonsillectomy Respiratory: Yes Asthma Cardiac: Yes Irregular Heartbeat, Palpitations Neurological: Yes Headaches /Migraines 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 +) NIGHT SHIFT History: Hysterectomy Sexually Transmitted Disease: No HIV/AIDS: No Genitourinary: No Gastrointestinal: No Musculoskeletal: Yes Arthritis Endocrine: No HEENT: No Cancer: No (BRCA GENE + CARRIER) Psychosocial: Yes Anxiety Integumentary: No Blood Disorders: No Adverse Reaction/Blood Tranf: No Family Medical History No Pertinent Family Hx Physical Exam Vital Signs Vital Signs - First Documented 11/04/17 13:55 Temp 97.9 Pulse 76 Resp 18 B/P (MAP) 128/75 (92) Pulse Ox 100 Capillary Refill : Height, Weight, BMI Height: 5'5.00" Weight: 167lbs. oz. 75.128052rn; 24.79 BMI Method:Stated General Appearance: WD/WN, no apparent distress HEENT: PERRL/EOMI, normal ENT inspection, TMs normal, pharynx normal Neck: non-tender, full range of motion Respiratory: lungs clear (was), normal breath sounds, no respiratory distress, no accessory muscle use Gastrointestinal: normal bowel sounds, non tender Extremities: normal range of motion, non-tender Psychiatric: alert, oriented x 3 Crainal Nerves: normal hearing, normal speech, PERRL Skin: normal color, warm/dry Progress/Results/Core Measures Results/Orders My Orders Orders - ELMO DUNCAN APRN Ct Head Wo (11/04/17 13:59) Ketorolac Injection (Toradol Injection) (11/04/17 14:00) Diphenhydramine Injection (Benadryl Inje (11/04/17 14:00) Prochlorperazine Injection (Compazine In (11/04/17 14:00) Medications Given in ED Current Medications Medications Dose Ordered Sig/Devante Route Start Time Stop Time Status Last Admin Dose Admin Diphenhydramine HCl 25 mg ONCE ONCE IM 11/04/17 14:00 11/04/17 14:01 DC 11/04/17 14:30 25 MG Ketorolac Tromethamine 60 mg ONCE ONCE IM 11/04/17 14:00 11/04/17 14:01 DC 11/04/17 14:30 60 MG Prochlorperazine Edisylate 5 mg ONCE ONCE IM 11/04/17 14:00 11/04/17 14:01 DC 11/04/17 14:30 5 MG Vital Signs/I&O 11/04/17 13:55 Temp 97.9 Pulse 76 Resp 18 B/P (MAP) 128/75 (92) Pulse Ox 100 Departure Impression Primary Impression: Headache Disposition: 01 HOME, SELF-CARE Condition: Stable Departure-Patient Inst. Decision time for Depature: 16:28 Referrals: MASOUD CHRISTENSEN MD (PCP) Primary Care Physician DUGLAS FARR (Family) Primary Care Physician Patient Instructions: Headache, Adult (DC) Scripts Butalb/Acetaminophen/Caffeine (Esgic 50-325-40 mg Tablet) 1 Each Tablet 1 EACH PO Q4H PRN for HEADACHE, #10 TAB Prov: ELMO DUNCAN APRN 11/04/17 ELMO DUNCAN APRN Nov 04, 2017 14:03
[2017-11-04 16:29] VITALS: BP 128/75
[2017-11-04] MEDS ORDERED: BUTA-249 PO (16:29)
--- NOTE | 2017-11-06 13:01 | Diagnostic Imaging Report ---
PROCEDURE: CT head without contrast. TECHNIQUE: Multiple contiguous axial images were obtained through the brain without the use of intravenous contrast. INDICATION: Headache. COMPARISON: Multiple priors, most recently performed on 08/21/2017. FINDINGS: BRAIN: No parenchymal hemorrhage, midline shift or mass effect. Herrera-white matter differentiation is intact. No acute infarct. No white matter lesions. Ventricles, sulci and basilar cisterns are normal. EXTRA-AXIAL SPACES: No subdural or epidural collections. ORBITS AND PARANASAL SINUSES: Visualized orbits and globes are intact. Visualized paranasal sinuses and mastoid air cells are clear. CALVARIUM AND SOFT TISSUES: The calvarium is intact. No fractures or suspicious bony lesions. The extracranial soft tissues are unremarkable. IMPRESSION: No acute intracranial pathology. No significant change from prior. Dictated by: Dictated on workstation # [id number]
== END 2017-11-04 16:29 | disposition home or self-care (01) ==
LOC: EDUNIT# 13:05 → ER 13:08
DX: R51 Headache (principal); J45.909 Unspecified asthma, uncomplicated; G43.909 Migraine, unspecified, not intractable, without status migrainosus; F41.9 Anxiety disorder, unspecified; Z88.8 Allergy status to other drugs, medicaments and biological substances; Z88.6 Allergy status to analgesic agent; Z90.12 Acquired absence of left breast and nipple; Z90.89 Acquired absence of other organs; Z90.710 Acquired absence of both cervix and uterus
CPT/HCPCS: 70450; 96372

== ENCOUNTER 2017-12-26 20:33 | Emergency (ER) | payer MEDICAID ==
[~2017-12-26] VITALS: Ht 162.6 cm; Wt 71.2 kg
[~2017-12-26 20:33] MED LIST changes: +BUTA-249 PO
--- OUTSIDE RECORDS SUMMARY | 2017-12-26 20:39 | XMS REPORT | Clinical Summary ---
Author Author [facility] Organization [facility] Address Unknown Phone Unavailable Care Team Providers Care Ironworker Apprentice Name Role Phone Vivi Akbar-C Unavailable Nolan Cordero PCP Berenice Polk Unavailable Unavailable Artie Anders DO Unavailable Jess Howard MD Unavailable Alva Grant RN Unavailable Unavailable Celine Freeman RN Unavailable Unavailable Mychart, Generic Provider Unavailable Unavailable Meg Lee MD Unavailable Unavailable Jessica Diane RN Unavailable Unavailable Jessica Dia RN Unavailable Unavailable Niyah Bee RN Unavailable Unavailable Deepa Montes RN Unavailable Unavailable Kasey Lawrence JUKE BOX SERVICER Unavailable Unavailable Elina Beard RELOCATION SERVICES SPECIALIST Unavailable Priscilla Delong RN Unavailable Unavailable Gordon Geronimo MD Unavailable Unavailable Vania Flores-C Unavailable Ramya Polk RN Unavailable Unavailable Gege Flores RN Unavailable Unavailable Leida Cervantes Unavailable Source Comments Some departments are not documenting in the electronic medical record. If you do not see the information that you expected, contact Release of Information in the Health Information Management department at [phone] for further assistance in locating additional records.[facility] Allergies Active Allergy Reactions Severity [...] IMAGING: Mammogram: Bilateral diagnostic mammogram 04/18/13 ([facility]) revealed extremely dense breast tissue. There were no definite lesions or calcifications. 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
--- OUTSIDE RECORDS SUMMARY | 2017-12-26 20:39 | XMS REPORT ---
Author Author MERNA STRICKLAND [facility] IN [facility] Address [address] [place] [address] Care Team Providers Care Statistical Methods Professor Name Role Phone MERNA STRICKLAND Unavailable PROBLEMS Type Condition ICD9-CM Code OBD84-SS Code Onset Dates Condition Status SNOMED Code Problem Chronic fatigue R53.82 Active 76214741 Problem Fibromyalgia M79.7 Active 312061475 Problem Neuropathy G62.9 Active 793058571 Problem Other abnormal and inconclusive findings on diagnostic imaging of breast R92.8 Active 638127331 Problem Lumbago with sciatica, left side M54.42 Active 383014807 Problem Gastroesophageal reflux disease with esophagitis K21.0 Active 695148469 Problem Anxiety F41.9 Active 15271798 ALLERGIES Substance Reaction Event Type Date Status Zofran rash Drug Allergy Nov, Active Aspartame Unknown Drug Allergy Nov, Active ENCOUNTERS Encounter Location Date Diagnosis [place] [address] [place] [id number] [place] [address] 96351- 7835 Dec, [facility] IN [facility] [id number] [place] [address] 44469 -3950 Nov, Epidermoid cyst of finger of right hand L72.0 [facility] [id number] [place] [address] 46356- 8096 Nov, [facility] [id number] [place] [address] 47321- 6855 Oct, [facility] [address] [address]- [address] Oct, [facility] [id number] [place] [address] 35838- 0784 Oct, Right upper quadrant pain R10.11 ; Fibromyalgia M79.7 ; Neuropathy G62.9 and Family history of seizure disorder Z82.0 [place] [address] 47647- 6344 13 Sep, 2017 Right upper quadrant pain R10.11 [place] [address] 26734- 1443 07 Jul, 2017 [place] [address] 58470- 2256 Apr, Closed minimally displaced zone II fracture of sacrum with routine healing, subsequent encounter S32.121D [facility] [place] [address] 50[address] -7677 Mar, Chest pain, unspecified type R07.9 ; Left-sided thoracic back pain, unspecified chronicity M54.6 and Muscle spasm of back M62.830 [facility] [place] [address] 92445 -4574 Feb, Sore throat J02.9 ; Epigastric pain R10.13 and Gastroesophageal reflux disease with esophagitis K21.0 [place] [address] 26518- 4517 Jan, [place] [address] 44195- 0212 Dec, Anxiety F41.9 [place] [address] 20647- 6679 Nov, [facility] [place] [address] 11293 -1343 Nov, Acute nonintractable headache, unspecified headache type R51 and Encounter for immunization Z23 [facility] [address] [id number] Sep, Dental examination Z01.20 [facility] [address] 7[address]18- 4401 Sep, Breast pain, right N64.4 and Abnormal breast finding N64.59 [facility] [address] [place] [id number] [address] Sep, Encounter for dental examination and cleaning without abnormal findings Z01.20 [facility] [address] [place] [address] [id number] [place] [address] 26558- 3554 Sep, Abnormal breast finding N64.59 [facility] [id number] [place] [address] 52898- 7351 Sep, Encounter for dental examination and cleaning without abnormal findings Z01.20 [facility] [id number] [place] [address] 31036- 7544 Jul, [facility] [id number] [place] [address] 51245- 1661 Jul, [facility] [id number] [place] [address] 29804- 6005 Jul, Family history of malignant neoplasm of breast Z80.3 and Other abnormal and inconclusive findings on diagnostic imaging of breast R92.8 [facility] [id number] [place] [address] 59555- 5271 Jul, [facility] [id number] [place] [address] 20669- 1402 Jul, [facility] [id number] [place] [address] 21094- 7980 Jul, [facility] [id number] [place] [address] 33300- 7158 Jul, [facility] [id number] [place] [address] 58341- 4777 Jul, Breast pain, right N64.4 [facility] [id number] [place] [address] 14110- 9650 Jul, [facility] [id number] [place] [address] 76534- 9707 Jul, Breast pain, right N64.4 [place] [address] 55210- 5494 16 Jun, 2016 Family history of malignant neoplasm of breast Z80.3 and Other abnormal and inconclusive findings on diagnostic imaging of breast R92.[address] 35429- 0480 14 Jun, [address] 92364- 3249 June, Tobacco abuse Z72.0 ; Tobacco abuse counseling Z71.6 ; Foot pain, left M79.672 and Lumbago with sciatica, left side M54.[address] 81675- 4681 Dec, Thoracic neuritis M54.14 ; Alopecia L65.9 ; Dry skin L85.3 and Family history of hypothyroidism Z83.[address] [facility] IN [address] [address]2306 Dec, Acute non-recurrent maxillary sinusitis J01.[address] 67023- 4549 Nov, [address] 21983- 2742 Nov, Near syncope R55 ; Chronic fatigue R53.82 ; Thoracic neuritis M54.14 and Family history of thyroid disease Z83.[address] [facility] IN [address] 8[address] -6106 Oct, Thoracic neuritis M54.[address] 66846- 1597 Oct, Otitis media, left 382.9 and Upper respiratory infection 465.[address] 76059- 9408 May, [address] 31135- 7613 May, [facility] [place] [facility] [address] [id number] [place] [address]- 9313 Mar, 2014 [facility] [place] [facility] [address] [id number] [place] [address]- 6525 Mar, 2014 [facility] [place] [facility] [address] [id number] [place] [address]- 3437 Mar, 2014 [facility] [place] [facility] [address] [id number] [place] [address]- 4357 Mar, 2014 [facility] [place] [facility] [address] [id number] [place] [address]- 2705 Mar, 2014 [facility] [place] [facility] [address] [id number] [place] [address]- 4561 Mar, 2014 [facility] [place] [facility] [address] [id number] [place] [address]- 5485 Jan, [facility] [place] [facility] [address] [id number] [place] [address]- 1313 Jan, [facility] [place] [facility] [address] [id number] [place] [address]- 6712 Dec, [facility] [place] [facility] [address] [id number] [place] [address]- 1380 Dec, [facility] [place] [facility] [address] [facility] [id number] [place] [address]- 5434 Mar, [facility] [place] [facility] [address] [id number] [place] [address]- 4713 Mar, [facility] [place] [facility] [address] [id number] [place] [address]- 4797 Jan, [facility] [place] [facility] [address] [facility] [id number] [place] [address]- 9035 Jan, [facility] [place] [facility] [address] [facility] [id number] [place] [address]- 6767 Dec, [facility] [place] [facility] [address] [id number] [place] [address]- 4476 Dec, 2012 [facility] [place] [facility] [address] [id number] [place] [address]- 3917 Dec, [facility] [place] [facility] [address] [id number] [place] [address]- 3660 Dec, [facility] [place] [facility] [address] [id number] [place] [address]- 9656 Dec, [facility] [place] [facility] [address] [id number] [place] [address]- 0878 Dec, [facility] [place] [facility] [address] [id number] [place] [address]- 3603 Nov, [facility] [place] [facility] [address] [id number] [place] [address]- 5863 Nov, [facility] [place] [facility] [address] [id number] [place] [address]- 2549 Nov, [facility] [place] [facility] [address] [id number] [place] [address]- 1386 28 Nov, 2012 [facility] [place] [facility] [address] [id number] [place] [address]- 2621 25 Nov, 2012 [facility] [place] [facility] [address] [id number] [place] [address]- 4396 Nov, [facility] [place] [facility] [address] [id number] [place] [address]- 2136 24 Nov, 2012 [facility] [place] [facility] [address] [id number] [place] [address]- 2313 18 Nov, 2012 [facility] [place] [facility] [address] [id number] [place] 5797 18 Nov, 2012 [facility] [place] [facility] [address] [id number] [place] 7820 16 Nov, 2012 [facility] [place] [facility] [address] [id number] [place] 0319 16 Nov, 2012 [facility] [place] [facility] [address] [id number] [place] [address]- 3893 Nov, [facility] [place] [facility] [address] [id number] [place] [address]- 4793 Nov, [facility] [place] [facility] [address] [id number] [place] [address]- 5665 Nov, [facility] [place] [facility] [address] [id number] [place] [address]- 8259 Nov, [facility] [place] [facility] [address] [id number] [place] [address]- 9723 Nov, [facility] [place] [facility] [address] [id number] [place] [address]- 2181 Nov, [facility] [place] [facility] [address] [id number] [place] [address]- 0882 30 Oct, 2012 [facility] [place] [facility] [address] [id number] [address]- 8310 19 Oct, 2012 [facility] [place] [facility] [address] [id number] [place] [address]- 8156 19 Oct, 2012 [facility] [place] [facility] [address] [id number] [place] [address]- 2745 16 Oct, 2012 [facility] [place] [facility] [address] [id number] [place] [address]- 6763 10 Oct, 2012 [facility] [place] [facility] [address] [id number] [place] [address]- 6087 09 Oct, 2012 [facility] [place] [facility] [address] [id number] [place] [address]- 9147 Feb, [facility] [place] [facility] [address] [id number] [place] [address]- 8246 11 Oct, 2011 [facility] [place] [facility] [address] [id number] [address]- 4403 07 Oct, 2011 [facility] [place] [facility] [address] [id number] [place] [address]- 2546 Oct, [facility] [address] [facility] [id number] [place] [address] 2546 Sep, [facility] [address] [facility] [id number] [place] [address]- 2546 Sep, [facility] [address] [facility] [id number] [place] [address] 2546 Sep, [facility] [address] [facility] [id number] [place] [address] 2546 Sep, IMMUNIZATIONS No Known Immunizations SOCIAL HISTORY Never Assessed REASON FOR VISIT knot on palm of hand right below middle finger for the past 4 weeks. 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 thinks its getting bigger. [email or web address] PLAN OF CARE Activity Details Follow Up prn Reason: VITAL SIGNS Height 65 in 2017-12-18 Weight 160.4 lbs 2017-12-18 Temperature 98.6 degrees Fahrenheit 2017-12-18 Heart Rate 70 bpm 2017-12-18 Respiratory Rate 20 2017-12-18 BMI 26.69 kg/m2 2017-12-18 Blood pressure systolic 120 mmHg 2017-12-18 Blood pressure diastolic 74 mmHg 2017-12-18 MEDICATIONS Medication Instructions Dosage Frequency Start Date End Date Duration Status Ibuprofen 600 MG Orally Three times a day 1 tablet with food or milk as needed 8h 23 Mar, 2017 Active Xanax 0.25 MG Orally Twice a day 1 tablet 12h 13 Nov, 2015 Active RESULTS No Results PROCEDURES No Known procedures INSTRUCTIONS MEDICATIONS ADMINISTERED No Known Medications MEDICAL (GENERAL) HISTORY Type Description Date Surgical History tonsillectomy Surgical History total hysterectomy Surgical History breast reconstruction Surgical History right knee arthroscopy Surgical History bilateral mastectomy
--- OUTSIDE RECORDS SUMMARY | 2017-12-26 20:40 | XMS REPORT ---
Author Author DUGLAS FARR Organization [facility] Address [address] [place] [address] Care Team Providers Care Pad Cutter Name Role Phone DUGLAS FARR Unavailable PROBLEMS Type Condition ICD9-CM Code TNV71-PS Code Onset Dates Condition Status SNOMED Code Problem Chronic fatigue R53.82 Active 12356775 Problem Fibromyalgia M79.7 Active 734416920 Problem Neuropathy G62.9 Active 585846069 Problem Other abnormal and inconclusive findings on diagnostic imaging of breast R92.8 Active 697625473 Problem Lumbago with sciatica, left side M54.42 Active 624580684 Problem Gastroesophageal reflux disease with esophagitis K21.0 Active 361732427 Problem Anxiety F41.9 Active 41475769 ALLERGIES No Information ENCOUNTERS Encounter Location Date Diagnosis [facility] [id number] [place] [address] 47899- 5880 Dec, [facility] [address] 73041 -1001 Nov, Epidermoid cyst of finger of right hand L72.0 [facility] [id number] [place] [address] 25507- 1023 Nov, [facility] [id number] [place] [address] 60413- 2955 Oct, [facility] [id number] [place] [address] 92613- 7540 Oct, [facility] [address] 87434- 8220 Oct, Right upper quadrant pain R10.11 ; Fibromyalgia M79.7 ; Neuropathy G62.9 and Family history of seizure disorder Z82.0 [facility] [address] 58294- 3790 Sep, Right upper quadrant pain R10.11 [place] [id number] [place] [address] 01569- 9648 Jul, [place] [address] 88703- 0025 Apr, Closed minimally displaced zone II fracture of sacrum with routine healing, subsequent encounter S32.121D [facility] [place] [address] 65706 -9849 Mar, Chest pain, unspecified type R07.9 ; Left-sided thoracic back pain, unspecified chronicity M54.6 and Muscle spasm of back M62.830 [facility] [place] [address] 47574 -3031 Feb, Sore throat J02.9 ; Epigastric pain R10.13 and Gastroesophageal reflux disease with esophagitis K21.0 [place] [address] 19296- 0283 Jan, [place] [address] 72530- 5361 Dec, Anxiety F41.9 [place] [address] 76103- 0959 Nov, [facility] [place] [address] 23921 -1364 Nov, Acute nonintractable headache, unspecified headache type R51 and Encounter for immunization Z23 [facility] [id number] [place] [id number] Sep, Dental examination Z01.20 [place] [address] 87830- 7021 Sep, Breast pain, right N64.4 and Abnormal breast finding N64.59 [facility] [address] [id number] Sep, Encounter for dental examination and cleaning without abnormal findings Z01.20 [facility] [address] [address] [id number] [address]- 4220 Sep, Abnormal breast finding N64.59 [facility] [address] [address] [id number] [address]- 3406 Sep, Encounter for dental examination and cleaning without abnormal findings Z01.20 [facility] [id number] [place] [address] 93371- 1213 Jul, [facility] [address] [id number] [address]- 9383 Jul, [facility] [id number] [place] [address] 02360- 7507 Jul, Family history of malignant neoplasm of breast Z80.3 and Other abnormal and inconclusive findings on diagnostic imaging of breast R92.8 [facility] [address] [address] [id number] [address]- 1556 Jul, [facility] [address] [place] [address] [id number] [address]- 1713 Jul, [facility] [address] [address] 5010 Jul, [facility] [address] [address] [id number] [address]- 4251 Jul, [facility] [address] [address]- 4807 Jul, Breast pain, right N64.4 [facility] [address] [address] [id number] [address]- 2003 Jul, [facility] [address] [address] [id number] [address]- 7583 Jul, Breast pain, right N64.4 [facility] [address] [address] [id number] [address]- 6323 June, Family history of malignant neoplasm of breast Z80.3 and Other abnormal and inconclusive findings on diagnostic imaging of breast R92.8 [place] [address] 33273- 0818 June, [place] [address] 90699- 3174 June, Tobacco abuse Z72.0 ; Tobacco abuse counseling Z71.6 ; Foot pain, left M79.672 and Lumbago with sciatica, left side M54.42 [place] [address] 09516- 5757 Dec, Thoracic neuritis M54.14 ; Alopecia L65.9 ; Dry skin L85.3 and Family history of hypothyroidism Z83.49 [facility] [place] [address] 43615 -5306 Dec, Acute non-recurrent maxillary sinusitis J01.[address] 21925- 1699 Nov, [place] [address] 87203- 7961 Nov, Near syncope R55 ; Chronic fatigue R53.82 ; Thoracic neuritis M54.14 and Family history of thyroid disease Z83.49 [facility] [place] [address] 44161 -5454 Oct, Thoracic neuritis M54.14 [place] [address] 08537- 3214 Oct, Otitis media, left 382.9 and Upper respiratory infection 465.9 [place] [address] 82971- 9752 May, [place] [address] 21752- 5584 May, [place] [address] 27559- 6222 Mar, [facility] [place] [facility] [address] [id number] [place] [address]- 8802 Mar, 2014 [facility] [place] [facility] [address] [id number] [place] [address]- 7876 Mar, 2014 [facility] [place] [facility] [address] [id number] [place] [address]- 3647 Mar, 2014 [facility] [place] [facility] [address] [id number] [place] [address]- 1895 Mar, 2014 [facility] [place] [facility] [address] [id number] [place] [address]- 4055 Mar, 2014 [facility] [place] [facility] [address] [id number] [place] [address]- 3198 Jan, [facility] [place] [facility] [address] [id number] [place] [address]- 7857 Jan, [facility] [place] [facility] [address] [id number] [place] [address]- 9939 Dec, [facility] [place] [facility] [address] [id number] [place] [address]- 3511 Dec, [facility] [place] [facility] [address] [id number] [place] [address]- 2121 Mar, [facility] [place] [facility] [address] [id number] [place] [address]- 4020 Mar, [facility] [place] [facility] [address] [id number] [address]- 6541 Jan, [facility] [place] [facility] [address] [id number] [place] [address]- 7300 Jan, [facility] [place] [facility] [address] [id number] [place] [address]- 7891 Dec, [facility] [place] [facility] [address] [id number] [place] [address]- 1739 Dec, [facility] [place] [facility] [address] [id number] [place] [address]- 9476 Dec, [facility] [place] [facility] [address] [id number] [place] [address]- 7334 Dec, [facility] [place] [facility] [address] [id number] [place] [address]- 0594 Dec, [facility] [place] [facility] [address] [id number] [place] [address]- 5973 Dec, [facility] [place] [facility] [address] [id number] [place] [address]- 3522 Nov, [facility] [place] [facility] [address] [id number] [place] [address]- 7399 Nov, [facility] [place] [facility] [address] [id number] [place] [address]- 9332 Nov, [facility] [place] [facility] [address] [id number] [place] [address]- 8937 Nov, [facility] [place] [facility] [address] [id number] [place] [address]- 4220 Nov, [facility] [place] [facility] [address] [id number] [place] [address]- 4105 25 Nov, 2012 [facility] [place] [facility] [address] [id number] [place] [address]- 6241 24 Nov, 2012 [facility] [place] [facility] [address] [id number] [place] [address]- 6106 18 Nov, 2012 [facility] [place] [facility] [address] [id number] [address]- 9835 18 Nov, 2012 [facility] [place] [facility] [address] [id number] [place] [address]- 7079 16 Nov, 2012 [facility] [place] [facility] [address] [id number] [place] [address]- 3720 16 Nov, 2012 [facility] [place] [facility] [address] [id number] [address] 12 Nov, 2012 [facility] [place] [facility] [address] [id number] [place] [address] Nov, [facility] [place] [facility] [address] [id number] [place] [address] Nov, [facility] [place] [facility] [address] [id number] [place] [address] Nov, [facility] [place] [facility] [address] [id number] [place] [address] Nov, [facility] [place] [facility] [address] [id number] [place] [address] Nov, [facility] [place] [facility] [address] [id number] [place] [address] 30 Oct, 2012 [facility] [place] [facility] [address] [id number] [place] [address] 19 Oct, 2012 [facility] [place] [facility] [address] [id number] [place] [address] 19 Oct, 2012 [facility] [place] [facility] [address] [id number] [place] [address] 16 Oct, 2012 [facility] [place] [facility] [address] [id number] [place] [address] 10 Oct, 2012 [facility] [place] [facility] [address] [id number] [place] [address] 09 Oct, 2012 [facility] [place] [facility] [address] [id number] [place] [address] 02 Feb, 2012 [facility] [place] [facility] [address] [id number] [place] [address] 11 Oct, 2011 [facility] [place] [facility] [address] [id number] [place] [address] 07 Oct, 2011 [facility] [place] [facility] [address] [id number] [place] [address] 07 Oct, 2011 [facility] [place] [facility] [address] [id number] [address] Sep, [facility] [address] [facility] [id number] [place] [address] Sep, [facility] [address] [facility] [id number] [address] Sep, [facility] [address] [facility] [id number] [place] [address] Sep, IMMUNIZATIONS No Known Immunizations SOCIAL HISTORY Never Assessed REASON FOR VISIT Eye Exam PLAN OF CARE VITAL SIGNS MEDICATIONS Unknown Medications RESULTS No Results PROCEDURES No Known procedures INSTRUCTIONS MEDICATIONS ADMINISTERED No Known Medications MEDICAL (GENERAL) HISTORY Type Description Date Surgical History tonsillectomy Surgical History total hysterectomy Surgical History breast reconstruction Surgical History right knee arthroscopy Surgical History bilateral mastectomy
--- OUTSIDE RECORDS SUMMARY | 2017-12-26 20:40 | XMS REPORT ---
Author Author DUGLAS FARR Organization [facility] Address [address] [place] [address] Care Team Providers Care Pv Design And Installation Technician Name Role Phone DUGLAS FARR Unavailable PROBLEMS Type Condition ICD9-CM Code [id number] Code Onset Dates Condition Status SNOMED Code Problem Chronic fatigue R53.82 Active 34993128 Problem Fibromyalgia M79.7 Active 022527976 Problem Neuropathy G62.9 Active 068183027 Problem Other abnormal and inconclusive findings on diagnostic imaging of breast R92.8 Active 518343826 Problem Lumbago with sciatica, left side M54.42 Active 367321484 Problem Gastroesophageal reflux disease with esophagitis K21.0 Active 405147168 Problem Anxiety F41.9 Active 75691217 ALLERGIES Substance Reaction Event Type Date Status Zofran rash Drug Allergy Oct, Active Aspartame Unknown Drug Allergy Oct, Active ENCOUNTERS Encounter Location Date Diagnosis [place] [id number] [address]- [address] Nov, [facility] [address] [place] [id number] [place] [address] 84257- 9365 Oct, [facility] [address] [place] [address] [id number] [place] [address] 95530- 0433 Oct, [facility] [address] 63675- 7279 Oct, Right upper quadrant pain R10.11 ; Fibromyalgia M79.7 ; Neuropathy G62.9 and Family history of seizure disorder Z82.0 [facility] [address] [place] [address] [id number] [place] [address] 15923- 5831 Sep, Right upper quadrant pain R10.11 [facility] [id number] [place] [address] 90942- 4473 07 Jul, 2017 [facility] [id number] [place] [address] 30672- 3192 Apr, Closed minimally displaced zone II fracture of sacrum with routine healing, subsequent encounter S32.121D [facility] [id number] [place] [address] 29095 -0606 Mar, Chest pain, unspecified type R07.9 ; Left-sided thoracic back pain, unspecified chronicity M54.6 and Muscle spasm of back M62.830 [facility] [address] [id number] [place] [address] 79473 -0058 Feb, Sore throat J02.9 ; Epigastric pain R10.13 and Gastroesophageal reflux disease with esophagitis K21.0 [facility] [address] [place] [address] [id number] [place] [address] 08714- 5787 Jan, [place] [address] 92392- 7505 Dec, Anxiety F41.9 [facility] [address] 50148- 8254 Nov, [facility] [address] 65281 -6133 Nov, Acute nonintractable headache, unspecified headache type R51 and Encounter for immunization Z23 [facility] [address] [place] [id number] [place] [address] [id number] Sep, Dental examination Z01.20 [facility] [address] 88357- 0599 Sep, Breast pain, right N64.4 and Abnormal breast finding N64.59 [facility] [address] [id number] Sep, Encounter for dental examination and cleaning without abnormal findings Z01.20 [facility] [id number] [place] [address] 22239- 6559 Sep, Abnormal breast finding N64.59 [facility] [address] [address]- 5281 Sep, Encounter for dental examination and cleaning without abnormal findings Z01.20 [facility] [address] [address]- 3437 Jul, [facility] [address] [address]- 4542 Jul, [facility] [address] [place] [id number] [place] [address] 96681- 2563 Jul, Family history of malignant neoplasm of breast Z80.3 and Other abnormal and inconclusive findings on diagnostic imaging of breast R92.8 [facility] [address] [place] [address] [id number] [address]- 9999 Jul, [facility] [address] [address]- 5706 Jul, [facility] [address] [place] [id number] [address]- 2893 Jul, [facility] [address], [place] [address]- 9390 Jul, [facility] [address] [place] [address]- 7066 Jul, Breast pain, right N64.4 [facility] [address] [address]- 4480 Jul, [facility] [address] [address]- 3090 Jul, Breast pain, right N64.4 [facility] [address] [address]- 4797 June, Family history of malignant neoplasm of breast Z80.3 and Other abnormal and inconclusive findings on diagnostic imaging of breast R92.8 [facility] [address], [place] [address]- 4369 June, [place] [address] [place] [id number] [place] [address] 29247- 0670 June, Tobacco abuse Z72.0 ; Tobacco abuse counseling Z71.6 ; Foot pain, left M79.672 and Lumbago with sciatica, left side M54.42 [facility] [address] [place] [address] [id number] [place] [address] 31751- 7219 Dec, Thoracic neuritis M54.14 ; Alopecia L65.9 ; Dry skin L85.3 and Family history of hypothyroidism Z83.49 [facility] [address] 90186 -7790 Dec, Acute non-recurrent maxillary sinusitis J01.00 [place] [address] 62383- 3864 17 Nov, 2015 [place] [address] 70309- 9376 Nov, Near syncope R55 ; Chronic fatigue R53.82 ; Thoracic neuritis M54.14 and Family history of thyroid disease Z83.49 [facility] [address] [place] [address] [id number] [place] [address] 66662 -4573 Oct, Thoracic neuritis M54.14 [facility] [address] [place] [id number] [place] [address] 78663- 0648 02 Oct, 2014 Otitis media, left 382.9 and Upper respiratory infection 465.9 [place] [address] [place] [id number] [place] [address] 80596- 6381 May, [place] [address] 68724- 7595 May, [place] [address] 28902- 3343 Mar, [facility] [address] 38572- 7162 Mar, [facility] [address] 21719- 5028 Mar, 2014 [facility] [address] [id number] [place] [address]- 7089 Mar, 2014 [facility] [place] [facility] [address] [id number] [place] [address]- 5213 Mar, 2014 [facility] [place] [facility] [address] [id number] [place] [address]- 1822 Mar, 2014 [facility] [place] [facility] [address] [id number] [place] [address]- 0944 Jan, [facility] [place] [facility] [address] [id number] [place] [address]- 9295 Jan, [facility] [place] [facility] [address] [id number] [place] [address]- 7640 Dec, [facility] [address] [facility] [id number] [place] [address]- 6623 Dec, [facility] [place] [facility] [address] [id number] [place] [address]- 8603 Mar, [facility] [address] [id number] [place] [address]- 1725 Mar, [facility] [address] [facility] [id number] [place] [address]- 2717 Jan, [facility] [place] [facility] [address] [facility] [id number] [place] [address]- 9821 Jan, [facility] [place] [facility] [address] [id number] [place] [address]- 7768 Dec, [facility] [place] [facility] [address] [id number] [place] [address]- 0544 Dec, [facility] [place] [facility] [address] [facility] [id number] [place] [address]- 9428 Dec, [facility] [place] [facility] [address] [facility] [id number], [place] [address]- 6724 Dec, [facility] [place] [facility] [address] [id number] [place] [address]- 6211 Dec, [facility] [place] [facility] [address] [id number] [place] [address]- 1160 Dec, [facility] [place] [facility] [address] [id number] [place] [address]- 2511 Nov, [facility] [place] [facility] [address] [id number] [place] [address]- 9649 Nov, [facility] [place] [facility] [address] [id number] [place] [address]- 4930 Nov, [facility] [place] [facility] [address] [id number] [place] [address]- 2597 Nov, [facility] [place] [facility] [address] [id number] [place] [address]- 4442 Nov, [facility] [place] [facility] [address] [id number] [place] [address]- 4232 Nov, [facility] [place] [facility] [address] [id number] [place] [address]- 9601 Nov, [facility] [place] [facility] [address] [id number] [place] [address]- 9939 Nov, [facility] [place] [facility] [address] [id number] [place] [address]- 3016 Nov, [facility] [place] [facility] [address] [id number] [place] [address]- 2367 Nov, [facility] [place] [facility] [address] [id number] [place] [address]- 9808 16 Nov, 2012 [facility] [place] [facility] [address] [id number] [place] [address]- 0909 Nov, [facility] [place] [facility] [address] [id number] [place] [address]- 3011 Nov, [facility] [place] [facility] [address] [id number], [place] [address]- 8706 Nov, [facility] [place] [facility] [address] [id number] [place] [address]- 4959 Nov, [facility] [place] [facility] [address] [id number] [place] [address]- 0382 Nov, [facility] [place] [facility] [address] [id number] [place] [address]- 3835 Nov, [facility] [place] [facility] [address] [id number] [place] [address]- 0120 30 Oct, 2012 [facility] [place] [facility] [address] [id number] [place] [address]- 4012 19 Oct, 2012 [facility] [place] [facility] [address] [id number] [place] [address]- 5647 19 Oct, 2012 [facility] [place] [facility] [address] [id number] [place] [address]- 8253 16 Oct, 2012 [facility] [place] [facility] [address] [id number] [place] [address]- 7097 10 Oct, 2012 [facility] [place] [facility] [address] [id number] [place] [address]- 0256 09 Oct, 2012 [facility] [place] [facility] [address] [id number] [place] [address]- 3596 Feb, [facility] [place] [facility] [address] [id number], [place] [address]- 6131 11 Oct, 2011 [facility] [place] [facility] [address] [id number], [place] [address]- 9763 07 Oct, 2011 [facility] [place] [facility] [address] [id number] [place] [address]- 7099 07 Oct, 2011 [facility] [place] [facility] [address] [id number] [place] [address]- 2219 29 Sep, 2011 [facility] [place] [facility] [address] [id number] [place] [address]- 1536 Sep, [facility] [place] [facility] [address] [facility] [id number] [place] [address]- 2546 Sep, [facility] [address] [facility] [id number] [place] [address]- 3618 Sep, IMMUNIZATIONS No Known Immunizations SOCIAL HISTORY Never Assessed REASON FOR VISIT Abdominal pain, PT reports she increased her salt and water intake due to previous instructions but is still having pounding headacches. PT states she is still having pain all over and sharp pain in her right side. PT states if she eats anything she has to sleep to avoid dealing with the pain. -colleen CAMPOS PLAN OF CARE Activity Details Follow Up 4 Weeks Reason:fibro VITAL SIGNS Height 65 in 2017-11-02 Weight 158.9 lbs 2017-11-02 Temperature 98.1 degrees Fahrenheit 2017-11-02 Heart Rate 71 bpm 2017-11-02 Respiratory Rate 20 2017-11-02 Oximetry 98 % 2017-11-02 BMI 26.44 kg/m2 2017-11-02 Blood pressure systolic 118 mmHg 2017-11-02 Blood pressure diastolic 70 mmHg 2017-11-02 MEDICATIONS Medication Instructions Dosage Frequency Start Date End Date Duration Status Percocet 5-325 MG Orally every 6 hrs 1 tablet as needed 6h 15 Apr, 2017 Active Ibuprofen 600 MG Orally Three times a day 1 tablet with food or milk as needed 8h Mar, Active Lyrica 50 mg Orally Three times a day 1 capsule 8h Oct, Active Protonix 40 MG Orally Once a day 1 tablet 24h Feb, 30 day(s) Not-Taking Xanax 0.25 MG Orally Twice a day 1 tablet 12h Nov, Active Protonix 40 mg Orally Once a day 1 tablet 24h Oct, 30 day(s) Active RESULTS No Results PROCEDURES No Known procedures INSTRUCTIONS MEDICATIONS ADMINISTERED No Known Medications MEDICAL (GENERAL) HISTORY Type Description Date Surgical History tonsillectomy Surgical History total hysterectomy Surgical History breast reconstruction Surgical History right knee arthroscopy Surgical History bilateral mastectomy
--- OUTSIDE RECORDS SUMMARY | 2017-12-26 20:40 | XMS REPORT ---
Author Author DUGLAS FARR Organization [facility] Address [address] [place] [address] Care Team Providers Care Darkroom Worker Name Role Phone DUGLAS FARR Unavailable PROBLEMS Type Condition ICD9-CM Code [id number] Code Onset Dates Condition Status SNOMED Code Problem Chronic fatigue R53.82 Active 95898110 Problem Fibromyalgia M79.7 Active 688198862 Problem Neuropathy G62.9 Active 981602600 Problem Other abnormal and inconclusive findings on diagnostic imaging of breast R92.8 Active 457353489 Problem Lumbago with sciatica, left side M54.42 Active 487523807 Problem Gastroesophageal reflux disease with esophagitis K21.0 Active 820150959 Problem Anxiety F41.9 Active 20833323 ALLERGIES Substance Reaction Event Type Date Status Zofran rash Drug Allergy Sep, Active Aspartame Unknown Drug Allergy Sep, Active ENCOUNTERS Encounter Location Date Diagnosis [place] [address] [place] [id number] [place] [address] 30720- 3838 Nov, [facility] [address] [place] [id number] [place] [address] 15944- 9962 Oct, [facility] [address] [place] [id number] [place] [address] 13661- 3011 Oct, Right upper quadrant pain R10.11 ; Fibromyalgia M79.7 ; Neuropathy G62.9 and Family history of seizure disorder Z82.0 [facility] [address] [place] [address] 90722- 7412 Sep, Right upper quadrant pain R10.11 [facility] [address] [place] [id number] [place] [address] 36170- 6405 07 Jul, 2017 [facility] [address] [place] [id number] [place] [address] 57554- 9494 Apr, Closed minimally displaced zone II fracture of sacrum with routine healing, subsequent encounter S32.121D [facility] [address] [id number] [place] [address] 99499 -2580 Mar, Chest pain, unspecified type R07.9 ; Left-sided thoracic back pain, unspecified chronicity M54.6 and Muscle spasm of back M62.830 [facility] [address] [address]284 -5122 Feb, Sore throat J02.9 ; Epigastric pain R10.13 and Gastroesophageal reflux disease with esophagitis K21.0 [place] [address] 05794- 4234 Jan, [place] [address] 72708- 6949 Dec, Anxiety F41.9 [place] [address] 56762- 4232 Nov, [facility] [address] 67951 -9898 Nov, Acute nonintractable headache, unspecified headache type R51 and Encounter for immunization Z23 [facility] [address] [id number] Sep, Dental examination Z01.20 [facility] [address] 22804- 9236 Sep, Breast pain, right N64.4 and Abnormal breast finding N64.59 [facility] [address] [id number] Sep, Encounter for dental examination and cleaning without abnormal findings Z01.20 [facility] [address] 68407- 9930 Sep, Abnormal breast finding N64.59 [facility] [address] 02794- 6031 Sep, Encounter for dental examination and cleaning without abnormal findings Z01.20 [facility] [address] [id number], [place] [address]- 5632 Jul, [facility] [address] [facility] [id number], [place] [address]- 9718 Jul, [facility] [address] [facility] [id number], [place] [address]- 0734 Jul, Family history of malignant neoplasm of breast Z80.3 and Other abnormal and inconclusive findings on diagnostic imaging of breast R92.8 [facility] [address] [id number], [place] [address]- 1650 Jul, [facility] [address] [facility] [id number], [place] [address]- 2915 Jul, [facility] [address] [facility] [id number], [place] [address]- 8270 Jul, [facility] [address] [facility] [id number], [place] [address]- 4517 Jul, [facility] [address] [facility] [id number], [place] [address]- 5163 Jul, Breast pain, right N64.4 [facility] [address] [facility] [id number], [place] [address]- 1065 Jul, [facility] [address] [facility] [id number], [place] [address]- 8389 Jul, Breast pain, right N64.4 [facility] [address] [facility] [id number], [place] [address]- 6634 June, Family history of malignant neoplasm of breast Z80.3 and Other abnormal and inconclusive findings on diagnostic imaging of breast R92.8 [facility] [address] [facility] [id number], [place] [address]- 0358 June, [facility] [address] [facility] [id number], [place] [address]- 3135 11 May, 2017 Tobacco abuse Z72.0 ; Tobacco abuse counseling Z71.6 ; Foot pain, left M79.672 and Lumbago with sciatica, left side M54.42 [facility] [address] 75716- 6030 Dec, Thoracic neuritis M54.14 ; Alopecia L65.9 ; Dry skin L85.3 and Family history of hypothyroidism Z83.49 [facility] [address] 47049 -4173 Dec, Acute non-recurrent maxillary sinusitis J01.00 [place] [address] 83099- 3394 Nov, [place] [address] 19696- 3260 Nov, Near syncope R55 ; Chronic fatigue R53.82 ; Thoracic neuritis M54.14 and Family history of thyroid disease Z83.49 [facility] [address] 54829 -3180 Oct, Thoracic neuritis M54.14 [place] [address] 68163- 8787 Oct, Otitis media, left 382.9 and Upper respiratory infection 465.9 [place] [address] 38323- 1444 May, [place] [address] 62778- 1363 May, [place] [address] 90906- 2523 Mar, [place] [address] 04082- 3332 Mar, [place] [address] 46363- 9836 Mar, [facility] [address] 69865- 6900 Mar, [facility] [address] [id number] [place] [address]- 2898 Mar, [facility] [place] [facility] [address] [id number] [place] [address]- 2886 Mar, [facility] [place] [facility] [address] [id number] [place] [address]- 2818 Jan, [facility] [place] [facility] [address] [id number] [place] [address]- 4083 Jan, [facility] [place] [facility] [address] [id number] [place] [address]- 5530 Dec, [facility] [place] [facility] [address] [id number] [place] [address]- 0223 Dec, [facility] [address] [id number] [place] [address]- 2055 Mar, [facility] [place] [facility] [address] [id number] [place] [address]- 5917 Mar, [facility] [place] [facility] [address] [id number] [place] [address]- 4567 Jan, [facility] [place] [facility] [address] [facility] [id number] [place] [address]- 2240 Jan, [facility] [place] [facility] [address] [id number] [place] [address]- 6433 Dec, [facility] [place] [facility] [address] [id number], [place] [address]- 5574 Dec, [facility] [place] [facility] [address] [id number] [place] [address]- 7352 Dec, [facility] [place] [facility] [address] [id number] [place] [address]- 5594 Dec, [facility] [place] [facility] [address] [facility] [id number], [place] [address]- 7579 Dec, [facility] [place] [facility] [address] [id number] [place] [address]- 1816 Dec, [facility] [place] [facility] [address] [id number] [place] [address]- 4401 Nov, [facility] [place] [facility] [address] [id number] [place] [address]- 1715 Nov, [facility] [place] [facility] [address] [id number] [place] [address]- 8212 Nov, [facility] [place] [facility] [address] [id number] [place] [address]- 3658 Nov, [facility] [place] [facility] [address] [id number] [place] [address]- 0207 Nov, [facility] [place] [facility] [address] [id number] [place] [address]- 8360 Nov, [facility] [place] [facility] [address] [id number] [place] [address]- 5366 Nov, [facility] [place] [facility] [address] [id number] [place] [address]- 1722 Nov, [facility] [place] [facility] [address] [id number] [place] [address]- 9637 Nov, [facility] [place] [facility] [address] [id number] [place] [address]- 8154 Nov, [facility] [place] [facility] [address] [id number] [place] [address]- 7506 Nov, [facility] [place] [facility] [address] [id number] [place] [address]- 8189 Nov, [facility] [place] [facility] [address] [id number] [place] [address] Nov, [facility] [place] [facility] [address] [id number] [place] [address] Nov, [facility] [place] [facility] [address] [id number] [address] Nov, [facility] [place] [facility] [address] [id number] [place] [address] Nov, [facility] [place] [facility] [address] [id number] [place] [address] Nov, [facility] [place] [facility] [address] [id number] [place] [address] 30 Oct, 2012 [facility] [place] [facility] [address] [id number] [place] [address] 19 Oct, 2012 [facility] [place] [facility] [address] [id number] [place] [address] 19 Oct, 2012 [facility] [place] [facility] [address] [id number] [place] [address] 16 Oct, 2012 [facility] [place] [facility] [address] [id number] [place] [address] 10 Oct, 2012 [facility] [place] [facility] [address] [id number] [place] [address] 09 Oct, 2012 [facility] [place] [facility] [address] [id number] [place] [address] Feb, [facility] [place] [facility] [address] [id number] [place] [address] 11 Oct, 2011 [facility] [place] [facility] [address] [id number] [place] [address] 07 Oct, 2011 [facility] [place] [facility] [address] [id number], [place] [address] 07 Oct, 2011 [facility] [place] [facility] [address] [id number] [place] [address] Sep, [facility] [place] [facility] [address] [id number] [place] [address] Sep, [facility] [place] [facility] [address] [id number] [place] [address] Sep, [facility] [place] [facility] [address] [facility] [id number] [place] [address] Sep, IMMUNIZATIONS No Known Immunizations SOCIAL HISTORY Never Assessed REASON FOR VISIT Abdominal pain Pt c/o RUQ abdominal pain which is a constant dull ache but is worse with eating fatty foods or greasy foods ANDRES Bob PLAN OF CARE VITAL SIGNS Height 65 in 2017-10-02 Weight 163. lbs 2017-10-02 Temperature 98.7 degrees Fahrenheit 2017-10-02 Heart Rate 76 bpm 2017-10-02 Respiratory Rate 18 2017-10-02 BMI 27.12 kg/m2 2017-10-02 Blood pressure systolic 116 mmHg 2017-10-02 Blood pressure diastolic 68 mmHg 2017-10-02 MEDICATIONS Medication Instructions Dosage Frequency Start Date End Date Duration Status Protonix 40 MG Orally Once a day 1 tablet 24h 07 Feb, 2017 30 day(s) Not-Taking Percocet 5-325 MG Orally every 6 hrs 1 tablet as needed 6h Apr, Active Xanax 0.25 MG Orally Twice a day 1 tablet 12h 13 Nov, 2015 Active Ibuprofen 600 MG Orally Three times a day 1 tablet with food or milk as needed 8h Mar, Active RESULTS No Results PROCEDURES No Known procedures INSTRUCTIONS MEDICATIONS ADMINISTERED No Known Medications MEDICAL (GENERAL) HISTORY Type Description Date Surgical History tonsillectomy Surgical History total hysterectomy Surgical History breast reconstruction Surgical History right knee arthroscopy Surgical History bilateral mastectomy
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
[2017-12-26] MEDS ORDERED: TETRACAINE 0.5% OPHTH SOLN 4 ML BTL (SINGLE DOSE ONLY) OU ONE (21:00)
[2017-12-26] MEDS ORDERED: FLUORESCEIN (FLUOR-I-STRIPS) 1 MG STRP OU ONE (21:00)
[2017-12-26] MEDS ORDERED: BSS 15 ML IR ONE (21:00)
[2017-12-26] MEDS ORDERED: RX-TOBRA/DEXAMETH (TOBRADEX) OP. SUSP 2.5 ML BTL ONE (21:20)
[2017-12-26] MEDS ORDERED: RX-TOBRA/DEXAMETH (TOBRADEX) OP. SUSP 2.5 ML BTL OU STA (21:21)
--- NOTE | 2017-12-26 21:32 | ED EENT ---
History of Present Illness General Chief Complaint: Eye Problems Stated Complaint: R EYE PAIN Nursing Triage Note: PT AMB TO ROOM #7 W/O DIFFICULTY. A&OX4. C/O RT EYE SWELLING AND PAIN. REPORTS SHE WAS CLEANING HER OVEN LAST NOC AT HOME WHEN SHE FELT SOME OF THE VEST TAILOR FALL INTO HER RT EYE. REPORTS SHE FLUSHED EYE OUT LAST NIGHT AT HOME WITH NS AND IT FELT BETTER. UPON RISE THIS AM RT EYE NOTED TO BE INFLAMMED AND SWOLLEN. REPORTS BLURRED VISION AND STABBING PAIN. UPON ARRIVAL TO ED PT RT EYE NOTED TO BE REDDENED AND INFLAMMED. Source: patient Exam Limitations: no limitations History of Present Illness Date Seen by Provider: Dec 26, 2017 Time Seen by Provider: 20:40 Initial Comments Patient is a 32 year old female who presents to the emergency room with complaints of right eye pain. she reports that she was cleaning her oven last night and was using a glass furnace tender and a wire brush and thinks that she got some of the particles from the oven in her eye. She flushed it out immediately and went bed but when she woke this morning it was painful and red. Timing/Duration: yesterday Location: eye (R) Prearrival Treatment: flushing eyes Associated Symptoms: denies symptoms Allergies and Home Medications Allergies Coded Allergies: aspartame (Unverified Allergy, Unknown, 07/01/14) Uncoded Allergies: ZOFRAN (Allergy, Unknown, 04/27/17) Home Medications Butalb/Acetaminophen/Caffeine 1 Each Tablet, 1 EACH PO Q4H PRN for HEADACHE Prescribed by: ELMO DUNCAN on 11/04/17 1629 Doxycycline Hyclate 100 Mg Tablet, 100 MG PO BID Prescribed by: AKANKSHA GARCES on 07/22/17 0344 Doxycycline Monohydrate 100 Mg Tablet, 100 MG PO BID, (Reported) Hydrocodone/Acetaminophen 1 Each Tablet, 1 EACH PO Q4H PRN for PAIN-MODERATE TO SEVERE Prescribed by: ELMO DUNCAN on 04/28/17 1516 Ondansetron 8 Mg Tab.rapdis, 8 MG PO Q6H PRN for NAUSEA/VOMITING-1ST LINE Prescribed by: ELMO DUNCAN on 08/21/17 1539 Patient Home Medication List Home Medication List Reviewed: Yes Review of Systems Review of Systems Constitutional: no symptoms reported, see HPI Eyes: See HPI, Foreign Body Sensation, Inflammation, Pain (right eye ) All Other Systems Reviewed Negative Unless Noted: Yes Past Efzfksu-Kbdzvy-Rvtvnl Hx Past Med/Social Hx: Reviewed Nursing Past Med/Soc Hx Patient Social History Alcohol Use: Occasionally Uses Recreational Drug Use: No Smoking Status: Former Smoker Type Used: Cigarettes Former Smoker, Quit: July 07, 2017 2nd Hand Smoke Exposure: No Recent Foreign Travel: No Contact w/Someone Who Travel: No Recent Infectious Disease Expo: No Recent Hopitalizations: No Physical Abuse: No Sexual Abuse: No Immunizations Up To Date Tetanus Booster (TDap): Less than 5yrs PED Vaccines UTD: Yes Date of Influenza Vaccine: Feb 20, 2013 Seasonal Allergies Seasonal Allergies: No Past Medical History Surgeries: Yes (LEEP, MASTECTOMY, BREAST RECONSTRUCTION, WISDOM TEETH, LAPAROSCOPY) Abdominal, Adenoidectomy, Breast, Hysterectomy, Lumpectomy, Oophorectomy, Orthopedic, Tonsillectomy Respiratory: Yes Asthma Cardiac: Yes Irregular Heartbeat, Palpitations Neurological: Yes Headaches /Migraines 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 +) 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 Sexually Transmitted Disease: No HIV/AIDS: No Genitourinary: No Gastrointestinal: No Musculoskeletal: Yes Arthritis Endocrine: No HEENT: No Cancer: No (BRCA GENE + CARRIER) Psychosocial: Yes Anxiety Integumentary: No Blood Disorders: No Adverse Reaction/Blood Tranf: No Family Medical History Reviewed Nursing Family Hx No Pertinent Family Hx Visual Acuity : Eye Location: Bilaterally Vision Acuity Degree: 20/20 Physical Exam Vital Signs Vital Signs - First Documented 12/26/17 20:40 Temp 97.6 Pulse 65 Resp 16 B/P (MAP) 111/64 (80) Pulse Ox 100 O2 Delivery Room Air Height, Weight, BMI Height: 5'4.00" Weight: 157lbs. oz. 71.462189eo; 24.79 BMI Method:Stated General Appearance: WD/WN, no apparent distress Eyes: right eye conjunctival inflammation; left eye normal inspection; bilateral eye PERRL, bilateral eye EOMI Mouth/Throat: normal mouth inspection, pharynx normal Cardiovascular: normal peripheral pulses, regular rate, rhythm, no edema, no gallop, no JVD, no murmur Respiratory: chest non-tender, lungs clear, normal breath sounds, no respiratory distress, no accessory muscle use Neurologic/Psychiatric: alert, oriented x 3 Skin: normal color, warm/dry Progress/Results/Core Measures Results/Orders My Orders Medications Given in ED Vital Signs/I&O Blood Pressure Mean: 80 Progress Progress Note : Time: 21:30 Progress Note I have seen and evaluated the patient. I have placed her on TobraDex for abx coverage and to help inflammation until she follows up with an eye doctor. She agrees with plan of care, plans for discharge, return precautions were given. Departure Impression Primary Impression: Conjunctival abrasion Disposition: HOME, SELF-CARE Condition: Stable Departure-Patient Inst. Decision time for Depature: 21:31 Referrals: DUGLAS MOREL (PCP) Primary Care Physician Patient Instructions: Corneal Abrasion (DC) Add. Discharge Instructions: Used the eyedrops were provided in the emergency room 2 drops to the right eye every 6 hours or 4 times a day. Follow-up with an eye doctor or Tucker Morel within 1 week for recheck. Call first thing tomorrow morning for an appointment time. Return back to the emergency room for any worsening symptoms or concerns as needed. All discharge instructions reviewed with patient and/or family. Voiced understanding. GE FRITZ Dec 26, 2017 21:32
[2017-12-26 21:34] VITALS: BP 105/64
[2017-12-27] MEDS ORDERED: NEO/POLY/DEX (MAXITROL) OPHTH SUSP 5 ML OP SCH
== END 2017-12-26 21:35 | disposition home or self-care (01) ==
LOC: EDUNIT# 20:33 → ER 20:35
DX: S05.01XA Injury of conjunctiva and corneal abrasion without foreign body, right eye, initial encounter (principal); J45.909 Unspecified asthma, uncomplicated; G43.909 Migraine, unspecified, not intractable, without status migrainosus; F41.9 Anxiety disorder, unspecified; Z88.8 Allergy status to other drugs, medicaments and biological substances; Z87.891 Personal history of nicotine dependence; Z90.710 Acquired absence of both cervix and uterus; Z90.89 Acquired absence of other organs; Z90.10 Acquired absence of unspecified breast and nipple; X58.XXXA Exposure to other specified factors, initial encounter
CPT/HCPCS: 99283

== ENCOUNTER 2018-02-20 15:48 | Emergency (ER) | payer MEDICAID ==
[~2018-02-20] VITALS: Ht 165.1 cm; Wt 74.8 kg
--- OUTSIDE RECORDS SUMMARY | 2018-02-20 15:52 | XMS REPORT ---
Author Author DUGLAS FARR Organization [facility] Address [address] [place] [address] Care Team Providers Care Director Emergency Services Name Role Phone DUGLAS FARR Unavailable PROBLEMS Type Condition ICD9-CM Code BEG96-MO Code Onset Dates Condition Status SNOMED Code Problem Chronic fatigue R53.82 Active 48744693 Problem Fibromyalgia M79.7 Active 251682610 Problem Neuropathy G62.9 Active 178630661 Problem Other abnormal and inconclusive findings on diagnostic imaging of breast R92.8 Active 019805771 Problem Lumbago with sciatica, left side M54.42 Active 121165030 Problem Gastroesophageal reflux disease with esophagitis K21.0 Active 362839338 Problem Anxiety F41.9 Active 44367178 ALLERGIES No Information ENCOUNTERS Encounter Location Date Diagnosis [facility] [id number] [place] [address] Jan, [facility] [address] [address] Jan, Right upper quadrant pain R10.11 [facility] [id number] [place] [address] Nov, Epidermoid cyst of finger of right hand L72.0 [facility] [id number] [place] [address]- 7668 Nov, [facility] [id number] [place] [address]- [address] Oct, [facility] [id number] [place] [address]- 7297 Oct, [facility] [id number] [place] [address]- 7505 Oct, Right upper quadrant pain R10.11 ; Fibromyalgia M79.7 ; Neuropathy G62.9 and Family history of seizure disorder Z82.0 [place] [id number] [place] [address] 13 Sep, 2017 Right upper quadrant pain R10.11 [place] [address] [address] 07 Jul, 2017 [place] [address] [address] 15 Apr, 2017 Closed minimally displaced zone II fracture of sacrum with routine healing, subsequent encounter S32.121D [facility] [place] [address] [address] Mar, Chest pain, unspecified type R07.9 ; Left-sided thoracic back pain, unspecified chronicity M54.6 and Muscle spasm of back M62.830 [facility] [place] [address] [address] Feb, Sore throat J02.9 ; Epigastric pain R10.13 and Gastroesophageal reflux disease with esophagitis K21.0 [place] [address] [address] Jan, [place] [address] [address] Dec, Anxiety F41.9 [place] [address] [address]- [address] Nov, [facility] [place] [address] [address] Nov, Acute nonintractable headache, unspecified headache type R51 and Encounter for immunization Z23 [facility] [id number] [place] [id number] Sep, Dental examination Z01.20 [place] [address] [address] Sep, Breast pain, right N64.4 and Abnormal breast finding N64.59 [facility] [address] [id number] [id number] Sep, Encounter for dental examination and cleaning without abnormal findings Z01.20 [facility] [address] [facility] [id number] [address] Sep, Abnormal breast finding N64.59 [facility] [id number] [place] [address]- [address] Sep, Encounter for dental examination and cleaning without abnormal findings Z01.20 [facility] [address] [address] Jul, [facility] [id number] [place] [address]- 80[address] Jul, [facility] [address] [address] Jul, Family history of malignant neoplasm of breast Z80.3 and Other abnormal and inconclusive findings on diagnostic imaging of breast R92.8 [facility] [address] [address] Jul, [facility] [address] [id number] [address] Jul, [facility] [address] [address] Jul, [facility] [address] [id number] [address] Jul, [facility] [id number] [address] Jul, Breast pain, right N64.4 [facility] [address] [id number] [address] Jul, [facility] [id number] [address] Jul, Breast pain, right N64.4 [place] [id number] [place] [address]- [address] 16 Jun, 2016 Family history of malignant neoplasm of breast Z80.3 and Other abnormal and inconclusive findings on diagnostic imaging of breast R92.[address] [address] 14 Jun, [address] [address] June, Tobacco abuse Z72.0 ; Tobacco abuse counseling Z71.6 ; Foot pain, left M79.672 and Lumbago with sciatica, left side M54.[address] [address] Dec, Thoracic neuritis M54.14 ; Alopecia L65.9 ; Dry skin L85.3 and Family history of hypothyroidism Z83.49 [facility] [address] [address] Dec, Acute non-recurrent maxillary sinusitis J01.[address] [address] Nov, [address] [address] Nov, Near syncope R55 ; Chronic fatigue R53.82 ; Thoracic neuritis M54.14 and Family history of thyroid disease Z83.[address] [address] Oct, Thoracic neuritis M54.[address] [address] 02 Oct, 2014 Otitis media, left 382.9 and Upper respiratory infection 465.[address] [address] May, [address] [address] May, [facility] [place] [facility] [address] [id number] [place] [address] Mar, 2014 [facility] [place] [facility] [address] [id number] [place] [address] 9[address] Mar, 2014 [facility] [place] [facility] [address] [facility] [id number] [place] [address]- 4[address] Mar, 2014 [facility] [place] [facility] [address] [id number] [place] [address]- 74[address] Mar, 2014 [facility] [place] [facility] [address] [id number] [place] [address]- [address] Mar, 2014 [facility] [place] [facility] [address] [facility] [id number] [place] [address]- [address]233 Mar, 2014 [facility] [place] [facility] [address] [facility] [id number] [place] [address]- 8318 Jan, [facility] [place] [facility] [address] [facility] [id number] [place] [address]- 4[address] Jan, [facility] [place] [facility] [address] [facility] [id number] [place] [address]- 2675 Dec, [facility] [place] [facility] [address] [facility] [id number] [place] [address]- 2[address] Dec, [facility] [place] [facility] [address] [facility] [id number] [place] [address] 1928 Mar, [facility] [place] [facility] [address] [facility] [id number] [place] [address]- 00[address] Mar, [facility] [place] [facility] [address] [facility] [id number] [place] [address]- 6[address] Jan, [facility] [place] [facility] [address] [facility] [id number] [place] [address]- 5277 Jan, [facility] [place] [facility] [address] [facility] [id number] [place] [address]- 6297 Dec, [facility] [place] [facility] [address] [id number] [place] [address]- 115[address] Dec, [facility] [place] [facility] [address] [id number] [place] [address]- 3735 Dec, [facility] [place] [facility] [address] [id number] [place] [address]- 7896 Dec, [facility] [place] [facility] [address] [id number] [place] [address]- 6332 Dec, [facility] [place] [facility] [address] [id number] [place] [address]- 6956 Dec, [facility] [place] [facility] [address] [id number] [place] [address]- 5[address] Nov, [facility] [place] [facility] [address] [id number] [place] [address]- 1444 Nov, [facility] [place] [facility] [address] [id number] [place] [address]- 2108 Nov, [facility] [place] [facility] [address] [id number] [place] [address]- 8696 28 Nov, 2012 [facility] [place] [facility] [address] [id number] [place] [address]- 3889 Nov, [facility] [place] [facility] [address] [id number] [place] [address]- 5161 Nov, [facility] [place] [facility] [address] [id number] [place] [address]- 9511 24 Nov, 2012 [facility] [place] [facility] [address] [id number] [place] [address]- 2282 18 Nov, 2012 [facility] [place] [facility] [address] [id number] [place] [address]- 1811 18 Nov, 2012 [facility] [place] [facility] [address] [id number] [place] [address] 16 Nov, 2012 [facility] [place] [facility] [address] [id number] [place] [address]- 9259 16 Nov, 2012 [facility] [place] [facility] [address] [id number] [place] [address]- 270[address] Nov, [facility] [place] [facility] [address] [id number] [place] [address]- 1669 Nov, [facility] [place] [facility] [address] [id number] [place] [address]- 2505 Nov, [facility] [place] [facility] [address] [id number] [place] [address]- 0[address] Nov, [facility] [place] [facility] [address] [id number] [place] [address]- 4[address] Nov, [facility] [place] [facility] [address] [id number] [place] [address]- 4952 Nov, [facility] [place] [facility] [address] [id number] [place] [address]- 8617 30 Oct, 2012 [facility] [place] [facility] [address] [id number], [place] [address]- [address] 19 Oct, 2012 [facility] [place] [facility] [address] [id number] [place] [address]- 7414 19 Oct, 2012 [facility] [place] [facility] [address] [id number], [place] [address]- [address] 16 Oct, 2012 [facility] [place] [facility] [address] [id number], [place] [address]- [address] 10 Oct, 2012 [facility] [place] [facility] [address] [id number], [place] [address]- 46[address] 09 Oct, 2012 [facility] [place] [facility] [address] [id number], [place] [address]- [address] 02 Feb, 2012 [facility] [place] [facility] [address] [id number], [place] [address]- 99[address] 11 Oct, 2011 [facility] [place] [facility] [address] [id number], [place] [address]- [address] 07 Oct, 2011 [facility] [place] [facility] [address] [facility] [id number] [place] [address]- 26[address] Oct, [facility] [address] [facility] [id number], [place] [address]- [address] Sep, [facility] [address] [facility] [id number], [place] [address]- 9[address] Sep, [facility] [address] [facility] [id number], [place] [address]- [address] Sep, [facility] [address] [facility] [id number], [place] [address]- [address] Sep, IMMUNIZATIONS No Known Immunizations SOCIAL HISTORY Never Assessed REASON FOR VISIT New Refill Request PLAN OF CARE VITAL SIGNS MEDICATIONS Medication [...]
--- OUTSIDE RECORDS SUMMARY | 2018-02-20 15:52 | XMS REPORT | Clinical Summary ---
Author Author [facility] Organization [facility] Address Unknown Phone Unavailable Care Team Providers Care Medical Billing Representative Name Role Phone Vivi Akbar-C Unavailable Nolan Cordero PCP Berenice Polk Unavailable Unavailable Artie Anders DO Unavailable Jess Howard MD Unavailable Alva Grant RN Unavailable Unavailable Celine Freeman RN Unavailable Unavailable Mychart, Generic Provider Unavailable Unavailable Meg Lee MD Unavailable Unavailable Jessica Diane RN Unavailable Unavailable Jessica Dia RN Unavailable Unavailable Niyah Bee RN Unavailable Unavailable Deepa Montes RN Unavailable Unavailable Kasey Lawrence PRESCHOOL AIDE Unavailable Unavailable Elina Beard DINKEY PRESS OPERATOR Unavailable Priscilla Delong RN Unavailable Unavailable Gordon Geronimo MD Unavailable Unavailable Vania Flores-C Unavailable Ramya Polk RN Unavailable Unavailable Gege Flores RN Unavailable Unavailable Leida Cervantes Unavailable Source Comments Some departments are not documenting in the electronic medical record. If you do not see the information that you expected, contact Release of Information in the Health Information Management department at [phone] for further assistance in locating additional records.[facility] Allergies Comments Active Allergy Reactions Severity Noted Date Aspartame VOMITING, Medium 07/31/2013 NAUSEA AND VOMITING Ondansetron Hcl (Pf) EYE 01/01/2014 IRRITATION, NAUSEA AND VOMITING Medications End Date Status Medication Sig Dispensed Refills Start Date Active estradiol (ESTRACE) 1 mg Take one 90 Tab 3 tablet tablet daily 5 for 3 weeks, off one week and repeat. Active fluconazole (DIFLUCAN) Take one 1 Tab 1 150 mg tablet tablet by 5 mouth for one dose. May repeat in 3 days. Active Problems Problem Noted [...] IMAGING: Mammogram: Bilateral diagnostic mammogram 04/18/13 ([facility]) revealed extremely dense breast tissue. There were no definite lesions or calcifications. Ultrasound: Right breast ultrasound 04/18/13 ([facility]) was performed for a 6 month follow [...] : 2.5 months PERTINENT PMH: Followed by educator senior clinical for palpitations FAMILY HISTORY: Mother with breast [...] Mother Paternal Grandfather Paternal Grandmother Social History Date Tobacco Use Types Packs/Day Years Used Quit: 07/19/2013 Former Smoker Cigarettes 0.5 10 Smokeless Tobacco: Never Used Alcohol Use Drinks/Week oz/Week Comments Yes 3 a month average Sex Assigned at Date Recorded Not on file Industry Job Start Date Occupation Not on file Not on file Not on file Travel End Travel History Travel Start No recent travel history available. Last Filed Vital Signs Time Taken Vital Sign Reading 10/03/2014 9:20 AM CDT Blood Pressure 94/53 10/03/2014 9:20 AM CDT Pulse 78 07/22/2014 10:57 AM CDT Temperature 36.7 C (98.1 F) 04/18/2014 11:38 AM DERMATOLOGY NURSE Respiratory Rate 16 07/22/2014 10:57 AM CDT Oxygen Saturation 100% - Inhaled Oxygen - Concentration 10/03/2014 9:20 AM CDT Weight 62.1 kg (137 lb) 07/22/2014 10:57 AM CDT Height 162.6 cm (5' 4.02") 10/03/2014 9:20 AM CDT Body Mass Index 23.5 Plan of Treatment Health Maintenance Due Date Last Done Comments PHYSICAL (COMPREHENSIVE) 09/18/1991 EXAM HIV SCREENING 09/18/1999 DTAP/TDAP VACCINES (1 - 2002 Tdap) CERVICAL CANCER SCREENING 2014 INFLUENZA VACCINE 09/20/2017 Results Not on filefrom Last 3 Months Insurance Payer Benefit Subscriber ID Type Phone Address Plan / Group [employer] [facility] Medicaid Advance Directives Patient has advance care planning documents, and code status on file. For more information, please contact: [facility] [address] [place] [address] Date Inactivated Comments Code Status Date Activated 06/17/2014 2:45 PM Full Code 06/16/2014 11:39 AM Provider has discussed Code Status No, discussion not w/Patient or Family? necessary based on Dx 09/29/2013 7:58 PM Full Code 09/29/2013 7:46 AM Provider has discussed Code Status Yes w/Patient or Family? 09/29/2013 7:46 AM Full Code 09/26/2013 1:00 PM Provider has discussed Code Status No, more discussion w/Patient or Family? needed
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
[2018-02-20] MEDS ORDERED: NS IV 1000 ML 1,000 ML IV STA (16:22)
[2018-02-20] MEDS ORDERED: ONDANSETRON 4 MG/2 ML (SDV) Z0FRAN IVP ONE (16:30)
--- NOTE | 2018-02-20 16:31 | ED GI ---
General Chief Complaint: Abdominal/GI Problems Stated Complaint: VOMITING Nursing Triage Note: PT PRESENTS TO ED WITH COMPLAINTS OF N/V AND ABDOMINAL CRAMPS STARTING AT 0800 THIS AM. PT REPORTS SHE DRANK A GLASS OF WATER OUT OF HER FRIDGE FAUCET AND STATES "THE WATER WAS SLIMEY" PT REPORTS FRIDGE WAS DUE FOR A FILTER. Sepsis Screen: No Definite Risk Source of Information: Patient Exam Limitations: No Limitations History of Present Illness Date Seen by Provider: Feb 20, 2018 Time Seen by Provider: 16:15 Initial Comments Here with report of diffuse abdominal cramping that started this morning after she drank water from the refrigerator that he needed to have the filter replaced. She states the filter light is been on for quite some time. She felt like the water was slimy and she started vomiting afterwards. She has vomited multiple times today and is just dry heaving now. She does have allergy to Zofran but it's to the coating on the oral version and not the IV version. Timing/Duration: 12 Hours Severity/Quality: Moderate, Cramping Location: Epigastric Radiation: RUQ, LUQ Activities at Onset: None Modifying Factors: Worsens With Eating Associated Symptoms: No Back Pain, No Fever/Chills; Nausea/Vomiting; No Shortness of Air, No Weakness Allergies and Home Medications Allergies Coded Allergies: aspartame (Unverified Allergy, Unknown, 07/01/14) Uncoded Allergies: ZOFRAN (Allergy, Unknown, 04/27/17) Home Medications Butalb/Acetaminophen/Caffeine 1 Each Tablet, 1 EACH PO Q4H PRN for HEADACHE Prescribed by: ELMO DUNCAN on 11/04/17 1629 Doxycycline Hyclate 100 Mg Tablet, 100 MG PO BID Prescribed by: AKANKSHA GARCES on 07/22/17 0344 Doxycycline Monohydrate 100 Mg Tablet, 100 MG PO BID, (Reported) Hydrocodone/Acetaminophen 1 Each Tablet, 1 EACH PO Q4H PRN for PAIN-MODERATE TO SEVERE Prescribed by: ELMO DUNCAN on 04/28/17 1516 Ondansetron 8 Mg Tab.rapdis, 8 MG PO Q6H PRN for NAUSEA/VOMITING-1ST LINE Prescribed by: ELMO DUNCAN on 08/21/17 1539 Patient Home Medication List Home Medication List Reviewed: Yes Review of Systems Review of Systems Constitutional: see HPI; No chills, No fever EENTM: No Symptoms Reported Respiratory: No Symptoms Reported Cardiovascular: No Symptoms Reported Gastrointestinal: See HPI, Abdominal Pain, Nausea, Vomiting Genitourinary: No Symptoms Reported Musculoskeletal: no symptoms reported Skin: no symptoms reported Psychiatric/Neurological: No Symptoms Reported All Other Systems Reviewed Negative Unless Noted: Yes Past Ckzljrf-Uddbnh-Isvevb Hx Past Med/Social Hx: Reviewed Nursing Past Med/Soc Hx Patient Social History Alcohol Use: Denies Use Recreational Drug Use: No Smoking Status: Former Smoker Type Used: Cigarettes Former Smoker, Quit: July 07, 2017 2nd Hand Smoke Exposure: No Recent Foreign Travel: No Contact w/Someone Who Travel: No Recent Infectious Disease Expo: No Recent Hopitalizations: No Immunizations Up To Date Tetanus Booster (TDap): Less than 5yrs PED Vaccines UTD: Yes Date of Influenza Vaccine: Feb 20, 2013 Seasonal Allergies Seasonal Allergies: No Past Medical History Surgeries: Yes (LEEP, MASTECTOMY, BREAST RECONSTRUCTION, WISDOM TEETH, LAPAROSCOPY) Abdominal, Adenoidectomy, Breast, Hysterectomy, Lumpectomy, Oophorectomy, Orthopedic, Tonsillectomy Respiratory: Yes Asthma Cardiac: Yes Irregular Heartbeat, Palpitations Neurological: Yes Headaches /Migraines 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 +) 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 oz. 74.564295yy; 24.79 BMI Method:Stated General Appearance: WD/WN, no apparent distress HEENT: PERRL/EOMI, pharynx normal Neck: full range of motion, supple Respiratory: lungs clear, normal breath sounds Cardiovascular: regular rate, rhythm, no murmur Gastrointestinal: soft, tenderness (upper abdomen bilateral) Extremities: non-tender, normal inspection Back: normal inspection, no CVA tenderness, no vertebral tenderness Neurologic/Psychiatric: alert, oriented x 3 Skin: normal color, warm/dry Progress/Results/Core Measures Results/Orders Lab Results Laboratory Tests Test 02/20/18 16:25 Range/Units White Blood Count 5.7 4.3-11.0 10^3/uL Red Blood Count 4.18 L 4.35-5.85 10^6/uL Hemoglobin 12.2 11.5-16.0 G/DL Hematocrit 37 35-52 % Mean Corpuscular Volume 87 80-99 FL Mean Corpuscular Hemoglobin 29 25-34 PG Mean Corpuscular Hemoglobin Concent 33 32-36 G/DL Red Cell Distribution Width 13.3 10.0-14.5 % Platelet Count 323 130-400 10^3/uL Mean Platelet Volume 9.5 7.4-10.4 FL Neutrophils (%) (Auto) 58 42-75 % Lymphocytes (%) (Auto) 33 12-44 % Monocytes (%) (Auto) 8 0-12 % Eosinophils (%) (Auto) 1 0-10 % Basophils (%) (Auto) 1 0-10 % Neutrophils # (Auto) 3.3 1.8-7.8 X 10^3 Lymphocytes # (Auto) 1.9 1.0-4.0 X 10^3 Monocytes # (Auto) 0.5 0.0-1.0 X 10^3 Eosinophils # (Auto) 0.1 0.0-0.3 10^3/uL Basophils # (Auto) 0.0 0.0-0.1 10^3/uL Sodium Level 144 135-145 MMOL/L Potassium Level 4.0 3.6-5.0 MMOL/L Chloride Level 106 98-107 MMOL/L Carbon Dioxide Level 27 21-32 MMOL/L Anion Gap 11 5-14 MMOL/L Blood Urea Nitrogen 12 7-18 MG/DL Creatinine 0.83 0.60-1.30 MG/DL Estimat Glomerular Filtration Rate > 60 BUN/Creatinine Ratio 14 Glucose Level 95 70-105 MG/DL Calcium Level 9.1 8.5-10.1 MG/DL Corrected Calcium 8.5-10.1 MG/DL Total Bilirubin 0.6 0.1-1.0 MG/DL Aspartate Amino Transf (AST/SGOT) 23 5-34 U/L Alanine Aminotransferase (ALT/SGPT) 29 0-55 U/L Alkaline Phosphatase 78 40-136 U/L Total Protein 7.8 6.4-8.2 GM/DL Albumin 4.6 H 3.2-4.5 GM/DL My Orders Orders - AKANKSHA GARCES MD Cbc With Automated Diff (02/20/18 16:22) Comprehensive Metabolic Panel (02/20/18 16:22) Ondansetron Injection (Zofran Injectio (02/20/18 16:30) Ns Iv 1000 Ml (Sodium Chloride 0.9%) (02/20/18 16:22) Saline Lock/Iv-Start (02/20/18 16:22) Promethazine Injection (Phenergan Injec (02/20/18 17:13) Medications Given in ED Current Medications Medications Dose Ordered Sig/Devante Route Start Time Stop Time Status Last Admin Dose Admin Ondansetron HCl 8 mg ONCE ONCE IVP 02/20/18 16:30 02/20/18 16:31 DC 02/20/18 16:25 8 MG Promethazine HCl 25 mg STK-MED ONCE .ROUTE 02/20/18 17:13 02/20/18 17:16 DC 02/20/18 17:19 25 MG Vital Signs/I&O 02/20/18 16:03 Temp 98.2 Pulse 77 Resp 20 B/P (MAP) 108/68 (81) Pulse Ox 100 Blood Pressure Mean: 81 Progress Progress Note : Progress Note Seen and evaluated. IV, labs, normal saline 1 L bolus and Zofran 8 mg IV ordered. Monitor patient. Nausea is a little better but still continues. Phenergan 25 mg IV given. Monitor patient. 1800: Overall much improved. No significant findings on labs. Discharged home with return precautions. Patient verbalize understanding instructions and agreement with plan. Departure Impression Primary Impression: Nausea and vomiting Qualified Codes: R11.2 - Nausea with vomiting, unspecified Disposition: 01 HOME, SELF-CARE Condition: Improved Departure-Patient Inst. Decision time for Depature: 18:09 Referrals: [facility] (PCP) Primary Care Physician DUGLAS FARR (Family) Primary Care Physician Patient Instructions: Nausea and Vomiting, Adult (DC) Add. Discharge Instructions: All discharge instructions reviewed with patient and/or family. Voiced understanding. Clear liquid diet for 24 hours and then advance as tolerated. Follow-up with your Dr. in a few days for recheck. Return for worse pain, fever, vomiting, weakness, rhythm from [place] other concerns as needed. Scripts Promethazine HCl (Promethazine Tablet) 25 Mg Tablet 25 MG PO Q8H PRN for NAUSEA/VOMITING, #14 TAB 0 Refills Prov: AKANKSHA GARCES MD 02/20/18 AKANKSHA GARCES MD Feb 20, 2018 16:31
[2018-02-20 16:35] LABS: BASOPHILS % (AUTO) 1 % (0-10); EOSINOPHILS # (AUTO) 0.1 10^3/uL (0.0-0.3); EOSINOPHILS % (AUTO) 1 % (0-10); HEMATOCRIT 37 % (35-52); HEMOGLOBIN 12.2 G/DL (11.5-16.0); LYMPHOCYTES # (AUTO) 1.9 X 10^3 (1.0-4.0); LYMPHOCYTES % (AUTO) 33 % (12-44); MEAN CORPUSCULAR HEMOGLOBIN 29 PG (25-34); MEAN CORPUSCULAR HGB CONC 33 G/DL (32-36); MEAN CORPUSCULAR VOLUME 87 FL (80-99); MEAN PLATELET VOLUME 9.5 FL (7.4-10.4); MONOCYTES # (AUTO) 0.5 X 10^3 (0.0-1.0); MONOCYTES % (AUTO) 8 % (0-12); NEUTROPHILS # (AUTO) 3.3 X 10^3 (1.8-7.8); NEUTROPHILS % (AUTO) 58 % (42-75); PLATELET COUNT 323 10^3/uL (130-400); RED BLOOD COUNT 4.18 10^6/uL (4.35-5.85); RED CELL DISTRIBUTION WIDTH 13.3 % (10.0-14.5); WHITE BLOOD COUNT 5.7 10^3/uL (4.3-11.0)
[2018-02-20 16:54] LABS: ALANINE AMINOTRANSFERASE 29 U/L (0-55); ALBUMIN 4.6 GM/DL (3.2-4.5); ALKALINE PHOSPHATASE 78 U/L (40-136); BILIRUBIN,TOTAL 0.6 MG/DL (0.1-1.0); BUN/CREATININE RATIO 14; CALCIUM 9.1 MG/DL (8.5-10.1); CARBON DIOXIDE 27 MMOL/L (21-32); CHLORIDE 106 MMOL/L (98-107); CREATININE SERUM 0.83 MG/DL (0.60-1.30); GFR ESTIMATED > 60; GLUCOSE 95 MG/DL (70-105); SODIUM 144 MMOL/L (135-145); TOTAL PROTEIN 7.8 GM/DL (6.4-8.2)
[2018-02-20] MEDS ORDERED: PROMETHAZINE INJ 25 MG/ML (PHENERGAN) AMP ONE (17:13)
[2018-02-20] MEDS ORDERED: PROM25TA14 PO (18:10)
[2018-02-20 18:40] VITALS: BP 110/80
== END 2018-02-20 20:10 | disposition home or self-care (01) ==
LOC: EDUNIT# 15:48 → ER 15:49
DX: R11.2 Nausea with vomiting, unspecified (principal); J45.909 Unspecified asthma, uncomplicated; G43.909 Migraine, unspecified, not intractable, without status migrainosus; F41.9 Anxiety disorder, unspecified; Z87.448 Personal history of other diseases of urinary system; Z88.8 Allergy status to other drugs, medicaments and biological substances; Z88.6 Allergy status to analgesic agent; Z87.891 Personal history of nicotine dependence; Z90.12 Acquired absence of left breast and nipple; Z98.890 Other specified postprocedural states; Z90.89 Acquired absence of other organs; Z90.710 Acquired absence of both cervix and uterus
CPT/HCPCS: 36415; 80053; 85025

== ENCOUNTER 2018-08-30 23:57 | Emergency (ER) | payer MEDICAID ==
[~2018-08-30] VITALS: Ht 165.1 cm; Wt 80.7 kg
[~2018-08-30 23:57] MED LIST changes: +PROM25TA14 PO
--- OUTSIDE RECORDS SUMMARY | 2018-08-31 00:30 | XMS REPORT ---
Author Author ALEA Parmar Organization [facility] Address [address] [place] [address] Care Team Providers Care Bilingual Medical Assistant Name Role Phone ALEA Parmar Unavailable PROBLEMS Type Condition ICD9-CM Code ZLN78-KC Code Onset Dates Condition Status SNOMED Code Problem Chronic fatigue R53.82 Active 64231526 Problem Lumbago with sciatica, left side M54.42 Active 473931700 Problem Fibromyalgia M79.7 Active 293739553 Problem Other chronic pain G89.29 Active 74896955 Problem Other abnormal and inconclusive findings on diagnostic imaging of breast R92.8 Active 225933188 Problem Anxiety F41.9 Active 31894396 Problem Gastroesophageal reflux disease with esophagitis K21.0 Active 738077588 Problem Neuropathy G62.9 Active 522831981 ALLERGIES No Information ENCOUNTERS Encounter Location Date Diagnosis [facility] [id number] [place] [address] Jan, [facility] [id number] [place] [address] Jan, Anxiety F41.9 ; Low back pain M54.5 and Other chronic pain G89.29 [facility] [id number] [place] [address] Jan, Right upper quadrant pain R10.11 [facility] [id number] [place] [address] Nov, Epidermoid cyst of finger of right hand L72.0 [facility] [id number] [place] [address] Nov, [facility] [id number] [place] [address] Oct, [place] [address] [address] Oct, [place] [address] [address] Oct, Right upper quadrant pain R10.11 ; Fibromyalgia M79.7 ; Neuropathy G62.9 and Family history of seizure disorder Z82.0 [place] [address] [address] Sep, Right upper quadrant pain R10.11 [place] [address] [address] Jul, [place] [address] [address] Apr, Closed minimally displaced zone II fracture of sacrum with routine healing, subsequent encounter S32.121D [facility] [address] [address] Mar, Chest pain, unspecified type R07.9 ; Left-sided thoracic back pain, unspecified chronicity M54.6 and Muscle spasm of back M62.830 [facility] [address] [address] Feb, Sore throat J02.9 ; Epigastric pain R10.13 and Gastroesophageal reflux disease with esophagitis K21.0 [place] [address] [address] Jan, [place] [address] [address] Dec, Anxiety F41.9 [place] [address] [address] Nov, [facility] [address] [address] Nov, Acute nonintractable headache, unspecified headache type R51 and Encounter for immunization Z23 [facility] [address] [id number] [id number] Sep, Dental examination Z01.20 [facility] [id number] [place] [address] Sep, Breast pain, right N64.4 and Abnormal breast finding N64.59 [facility] [id number] [place] [id number] Sep, Encounter for dental examination and cleaning without abnormal findings Z01.20 [facility] [id number] [place] [address] Sep, Abnormal breast finding N64.59 [facility] [id number] [place] [address] Sep, Encounter for dental examination and cleaning without abnormal findings Z01.20 [facility] [id number] [place] [address] Jul, [facility] [id number] [place] [address] Jul, [facility] [id number] [place] [address] Jul, Family history of malignant neoplasm of breast Z80.3 and Other abnormal and inconclusive findings on diagnostic imaging of breast R92.8 [facility] [id number] [place] [address] Jul, [facility] [id number] [place] [address] Jul, [facility] [id number] [place] [address] Jul, [facility] [id number] [place] [address] Jul, [facility] [id number] [address] Jul, Breast pain, right N64.4 [place] [id number] [place] [address] Jul, [address] [address] Jul, Breast pain, right N64.[address] [address] June, Family history of malignant neoplasm of breast Z80.3 and Other abnormal and inconclusive findings on diagnostic imaging of breast R92.[address] [address] June, [address] [address] June, Tobacco abuse Z72.0 ; Tobacco abuse counseling Z71.6 ; Foot pain, left M79.672 and Lumbago with sciatica, left side M54.[address] [address] Dec, Thoracic neuritis M54.14 ; Alopecia L65.9 ; Dry skin L85.3 and Family history of hypothyroidism Z83.49 [facility] [place] [address] [address] Dec, Acute non-recurrent maxillary sinusitis J01.[address] [address] Nov, [address] [address] Nov, Near syncope R55 ; Chronic fatigue R53.82 ; Thoracic neuritis M54.14 and Family history of thyroid disease Z83.49 [facility] [place] [id number] [place] [address] Oct, Thoracic neuritis M54.[address] [address] Oct, Otitis media, left 382.9 and Upper respiratory infection 465.9 [facility] [id number] [place] [address] 14 May, 2014 [facility] [id number] [address] 13 May, 2014 [facility] [id number] [place] [address] Mar, 2014 [facility] [id number] [place] [address], [place] [address] Mar, 2014 [facility] [id number] [place] [address], [place] [address] Mar, 2014 [facility] [id number] [place] [address], [place] [address] Mar, 2014 [facility] [id number] [place] [address], [place] [address] Mar, 2014 [facility] [address] [address] Mar, 2014 [facility] [id number] [place] [address], [place] [address] Jan, [facility] [address] [address] Jan, [facility] [address] [address] Dec, [facility] [address] [address] Dec, [facility] [id number] [place] [address], [place] [address] Mar, [facility] [address] [address] Mar, [facility] [address] [address] Jan, [facility] [place] [facility] [address] [id number] [place] [address] Jan, [facility] [place] [facility] [address] [id number] [place] [address] Dec, [facility] [place] [facility] [address] [id number] [place] [address] Dec, [facility] [place] [facility] [address] [id number] [place] [address] Dec, [facility] [place] [facility] [address] [id number] [place] [address] Dec, [facility] [place] [facility] [address] [id number] [place] [address] Dec, [facility] [place] [facility] [address] [id number] [place] [address] Dec, [facility] [place] [facility] [address] [id number] [place] [address] Nov, [facility] [place] [facility] [address] [id number] [place] [address] Nov, [facility] [place] [facility] [address] [id number] [place] [address] Nov, [facility] [place] [facility] [address] [id number] [place] [address] Nov, [facility] [place] [facility] [address] [id number] [address] Nov, [facility] [place] [facility] [address] [id number] [place] [address] Nov, [facility] [place] [facility] [address] [id number] [place] [address] 24 Nov, 2012 [facility] [place] [facility] [address] [id number] [place] [address] 18 Nov, 2012 [facility] [place] [facility] [address] [id number] [address] 18 Nov, 2012 [facility] [address] [id number] [place] [address] 16 Nov, 2012 [facility] [place] [facility] [address] [id number] [place] [address] 16 Nov, 2012 [facility] [place] [facility] [address] [id number] [place] [address] Nov, 2012 [facility] [place] [facility] [address] [id number] [place] [address] Nov, [facility] [address] [id number] [place] [address] Nov, [facility] [place] [facility] [address] [id number] [place] [address] Nov, [facility] [address] [id number] [place] [address] Nov, [facility] [place] [facility] [address] [id number] [place] [address] Nov, [facility] [place] [facility] [address] [id number] [place] [address] 30 Oct, 2012 [facility] [place] [facility] [address] [id number] [place] [address] 19 Oct, 2012 [facility] [place] [facility] [address] [id number] [place] [address] 19 Oct, 2012 [facility] [place] [facility] [address] [id number] [place] [address] 16 Oct, 2012 [facility] [place] [facility] [address] [id number] [place] [address] 10 Oct, 2012 [facility] [place] [facility] [address] [id number] [place] [address] 09 Oct, 2012 [facility] [place] [facility] [address] [id number] [place] [address] Feb, [facility] [place] [facility] [address] [facility] [id number] [place] [address] Oct, [facility] [address] [facility] [id number] [place] [address] Oct, [facility] [address] [facility] [id number] [place] [address] Oct, [facility] [id number] [address] Sep, [facility] [address] [facility] [id number] [place] [address] Sep, [facility] [id number] [address] Sep, [facility] [id number] [address] Sep, IMMUNIZATIONS No Known Immunizations SOCIAL HISTORY Never Assessed REASON FOR VISIT PLAN OF CARE VITAL SIGNS MEDICATIONS Unknown Medications RESULTS No Results PROCEDURES No Known procedures INSTRUCTIONS MEDICATIONS ADMINISTERED No Known Medications MEDICAL (GENERAL) HISTORY Type Description Date Surgical History tonsillectomy Surgical History total hysterectomy Surgical History breast reconstruction Surgical History right knee arthroscopy Surgical History bilateral mastectomy
--- OUTSIDE RECORDS SUMMARY | 2018-08-31 00:30 | XMS REPORT ---
Author Author Migration, Doctor Organization [facility] Address Unknown Phone Unavailable Care Team Providers Care Tanning Solution Maker Name Role Phone Migration, Doctor Unavailable Unavailable PROBLEMS Type Condition ICD9-CM Code RQV11-LC Code Onset Dates Condition Status SNOMED Code Problem Chronic fatigue R53.82 Active 36622726 Problem Lumbago with sciatica, left side M54.42 Active 078782026 Problem Fibromyalgia M79.7 Active 883964048 Problem Other chronic pain G89.29 Active 97347529 Problem Other abnormal and inconclusive findings on diagnostic imaging of breast R92.8 Active 720310668 Problem Anxiety F41.9 Active 91847335 Problem Gastroesophageal reflux disease with esophagitis K21.0 Active 637843536 Problem Neuropathy G62.9 Active 661605030 ALLERGIES No Information ENCOUNTERS Encounter Location Date Diagnosis [facility] [address] [address] Jan, [facility] [address] [address] Jan, Anxiety F41.9 ; Low back pain M54.5 and Other chronic pain G89.29 [facility] [address] [address] Jan, Right upper quadrant pain R10.11 [facility] [address] [address] Nov, Epidermoid cyst of finger of right hand L72.0 [facility] [address] [address] Nov, [facility] [address] [place] [id number] [place] [address] Oct, [facility] [address] [address] Oct, [place] [address] [place] [id number] [place] [address] 13 Oct, 2017 Right upper quadrant pain R10.11 ; Fibromyalgia M79.7 ; Neuropathy G62.9 and Family history of seizure disorder Z82.0 [place] [address] [place] [id number] [place] [address] Sep, Right upper quadrant pain R10.11 [place] [address] [address] Jul, [place] [address] [address] Apr, Closed minimally displaced zone II fracture of sacrum with routine healing, subsequent encounter S32.121D [facility] [place] [address] [address] Mar, Chest pain, unspecified type R07.9 ; Left-sided thoracic back pain, unspecified chronicity M54.6 and Muscle spasm of back M62.830 [facility] [place] [address] [address] Feb, Sore throat J02.9 ; Epigastric pain R10.13 and Gastroesophageal reflux disease with esophagitis K21.0 [place] [address] [place] [id number] [place] [address] Jan, [place] [address] [address] Dec, Anxiety F41.9 [place] [address] [address] Nov, [facility] Formerly named [facility] [address] [address] Nov, Acute nonintractable headache, unspecified headache type R51 and Encounter for immunization Z23 [facility] [address] [id number] Sep, Dental examination Z01.20 [facility] [address] [id number] [address] Sep, Breast pain, right N64.4 and Abnormal breast finding N64.59 [facility] [address] [id number] [id number] Sep, Encounter for dental examination and cleaning without abnormal findings Z01.20 [facility] [address] [place] [id number] [place] [address] Sep, Abnormal breast finding N64.59 [facility] [address] [place] [place] [id number] [place] [address] Sep, Encounter for dental examination and cleaning without abnormal findings Z01.20 [facility] [address] [address] Jul, [facility] [address] [place] [address] [id number] [place] [address] Jul, [facility] [id number] [place] [address] Jul, Family history of malignant neoplasm of breast Z80.3 and Other abnormal and inconclusive findings on diagnostic imaging of breast R92.8 [facility] [address] [address] Jul, [facility] [address] [address] Jul, [facility] [address] [address] Jul, [facility] [address] [address] Jul, [facility] [id number] [place] [address] Jul, Breast pain, right N64.4 [facility] [address] [address] Jul, [address] [address] Jul, Breast pain, right N64.[address] [address] 16 Jun, 2016 Family history of malignant neoplasm of breast Z80.3 and Other abnormal and inconclusive findings on diagnostic imaging of breast R92.[address] [address] June, [address] [address] June, Tobacco abuse Z72.0 ; Tobacco abuse counseling Z71.6 ; Foot pain, left M79.672 and Lumbago with sciatica, left side M54.[address] [address] Dec, Thoracic neuritis M54.14 ; Alopecia L65.9 ; Dry skin L85.3 and Family history of hypothyroidism Z83.49 [facility] [address] [address] Dec, Acute non-recurrent maxillary sinusitis J01.[address] [address] 17 Nov, [address] [address] Nov, Near syncope R55 ; Chronic fatigue R53.82 ; Thoracic neuritis M54.14 and Family history of thyroid disease Z83.49 [facility] [address] [address] Oct, Thoracic neuritis M54.[address] [address] 02 Oct, 2014 Otitis media, left 382.9 and Upper respiratory infection 465.[address] [place] [address] 14 May, 2014 [facility] [place] [facility] [address] [id number] [place] [address] 13 May, 2014 [facility] [place] [facility] [address] [id number] [place] [address] Mar, 2014 [facility] [place] [facility] [address] [facility] [id number] [place] [address] Mar, 2014 [facility] [place] [facility] [address] [id number] [place] [address] Mar, 2014 [facility] [place] [facility] [address] [id number] [place] [address] Mar, 2014 [facility] [place] [facility] [address] [facility] [id number] [place] [address] Mar, 2014 [facility] [place] [facility] [address] [facility] [id number] [place] [address] Mar, 2014 [facility] [place] [facility] [address] [facility] [id number] [place] [address] Jan, [facility] [place] [facility] [address] [facility] [id number] [place] [address] Jan, [facility] [place] [facility] [address] [facility] [id number] [place] [address] Dec, [facility] [place] [facility] [address] [facility] [id number] [place] [address] Dec, [facility] [place] [facility] [address] [id number] [place] [address] Mar, [facility] [place] [facility] [address] [facility] [id number] [place] [address] Mar, [facility] [place] [facility] [address] [facility] [id number] [place] [address] Jan, [facility] [place] [facility] [address] [facility] [id number] [place] [address] Jan, [facility] [place] [facility] [address] [id number] [place] [address] Dec, [facility] [place] [facility] [address] [id number] [place] [address] Dec, [facility] [place] [facility] [address] [id number] [place] [address] Dec, [facility] [place] [facility] [address] [id number] [place] [address] Dec, [facility] [place] [facility] [address] [id number] [place] [address] Dec, [facility] [place] [facility] [address] [id number] [place] [address] Dec, [facility] [place] [facility] [address] [id number] [place] [address] Nov, [facility] [place] [facility] [address] [id number] [address] Nov, [facility] [place] [facility] [address] [id number] [place] [address] Nov, [facility] [place] [facility] [address] [id number] [address] Nov, [facility] [place] [facility] [address] [id number] [address] Nov, [facility] [place] [facility] [address] [id number] [address] Nov, [facility] [place] [facility] [address] [id number] [place] [address] 24 Nov, 2012 [facility] [place] [facility] [address] [id number] [address] Nov, [facility] [place] [facility] [address] [id number] [address] Nov, [facility] [place] [facility] [address] [id number] [place] [address] 16 Nov, 2012 [facility] [address] [id number] [place] [address] 16 Nov, 2012 [facility] [place] [facility] [address] [id number] [place] [address] Nov, [facility] [place] [facility] [address] [id number] [place] [address] Nov, 2012 [facility] [place] [facility] [address] [id number] [place] [address] Nov, [facility] [place] [facility] [address] [id number] [place] [address] Nov, [facility] [place] [facility] [address] [id number] [place] [address] Nov, [facility] [address] [id number] [place] [address] Nov, [facility] [place] [facility] [address] [id number] [place] [address] 30 Oct, 2012 [facility] [place] [facility] [address] [id number] [place] [address] 19 Oct, 2012 [facility] [place] [facility] [address] [id number] [place] [address] 19 Oct, 2012 [facility] [place] [facility] [address] [id number] [place] [address] 16 Oct, 2012 [facility] [place] [facility] [address] [id number] [place] [address] 10 Oct, 2012 [facility] [place] [facility] [address] [id number] [place] [address] 09 Oct, 2012 [facility] [place] [facility] [address] [id number] [place] [address] Feb, [facility] [place] [facility] [address] [id number] [address] [address] [facility] [address] [facility] [id number] [address] [address], [address] [facility] [address] [id number] [address] Oct, [facility] [address] [address] Sep, [facility] [address] [address] Sep, [facility] [address] [facility] [id number] [address] Sep, [facility] [address] [id number] [address] Sep, IMMUNIZATIONS No Known Immunizations SOCIAL HISTORY Never Assessed REASON FOR VISIT EMR-[facility] PLAN OF CARE VITAL SIGNS MEDICATIONS Unknown Medications RESULTS No Results PROCEDURES No Known procedures INSTRUCTIONS MEDICATIONS ADMINISTERED No Known Medications MEDICAL (GENERAL) HISTORY Type Description Date Surgical History tonsillectomy Surgical History total hysterectomy Surgical History breast reconstruction Surgical History right knee arthroscopy Surgical History bilateral mastectomy
--- OUTSIDE RECORDS SUMMARY | 2018-08-31 00:30 | XMS REPORT | Clinical Summary ---
Author Author [facility] Organization [facility] Address Unknown Phone Unavailable Care Team Providers Care Claim Service Representative Name Role Phone Vivi HarrisonC Unavailable Nolan Cordero PCP Berenice Polk Unavailable Unavailable Artie Anders DO Unavailable Jess Howard MD Unavailable Alva Grant RN Unavailable Unavailable Celine Freeman RN Unavailable Unavailable Mychart, Generic Provider Unavailable Unavailable Meg Lee MD Unavailable Unavailable Jessica Diane RN Unavailable Unavailable Jessica Dia RN Unavailable Unavailable Niyah Bee RN Unavailable Unavailable Deepa Montes RN Unavailable Unavailable Kasey Lawrence DIETARY AIDE COOK Unavailable Unavailable Elina Beard APRN Unavailable Priscilla Delong RN Unavailable Unavailable Gordon Geronimo MD Unavailable Unavailable Vania Flores PA-C Unavailable Ramya Polk RN Unavailable Unavailable Gege Flores RN Unavailable Unavailable Leida Cervantes Unavailable Source Comments Some departments are not documenting in the electronic medical record. If you d o not see the information that you expected, contact Release of Information in [facility] Information Management department at [phone] for further assistan ce in locating additional records.[facility] Allergies Comments Active Allergy Reactions Severity Noted [...] IMAGING: Mammogram: Bilateral diagnostic mammogram 04/18/13 ([facility]) revealed extremely dense breast tissue. There were no definite lesions or calcifications. Ultrasound: Right breast ultrasound 04/18/13 ([facility]) was performed for a 6 month follow [...] : 2.5 months PERTINENT PMH: Followed by lockstitch front maker for palpitations FAMILY HISTORY: Mother with breast [...] Cigarettes 0.5 10 Smokeless Tobacco: Never Used Drinks/Week oz/Week Comments Alcohol Use 3 a month average Yes Sex Assigned at Date Recorded Not on file Industry Job Start Date Occupation Not on file Not on file Not on file Travel End Travel History Travel Start No recent travel history available. 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 Respiratory Rate 100% 07/22/2014 10:57 AM CDT Oxygen Saturation - - Inhaled Oxygen Concentration 62.1 kg (137 lb) 10/03/2014 9:20 AM CDT Weight 162.6 cm (5' 4.02") 07/22/2014 10:57 AM CDT Height 23.5 07/22/2014 10:57 AM CDT Body Mass Index Plan of Treatment Health Maintenance Due Date Last Done Comments PHYSICAL (COMPREHENSIVE) 09/18/1991 EXAM HIV SCREENING 09/18/1999 DTAP/TDAP VACCINES (1 - 2002 Tdap) CERVICAL CANCER SCREENING 2014 INFLUENZA VACCINE 11/20/2018 Results Not on filefrom Last 3 Months Advance Directives 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
--- OUTSIDE RECORDS SUMMARY | 2018-08-31 00:30 | XMS REPORT ---
Author Author Migration, Doctor Organization [facility] Address Unknown Phone Unavailable Care Team Providers Care Installation Drafter Name Role Phone Migration, Doctor Unavailable Unavailable PROBLEMS Type Condition ICD9-CM Code QEE72-KP Code Onset Dates Condition Status SNOMED Code Problem Chronic fatigue R53.82 Active 42158959 Problem Lumbago with sciatica, left side M54.42 Active 621970436 Problem Fibromyalgia M79.7 Active 192544034 Problem Other chronic pain G89.29 Active 91295503 Problem Other abnormal and inconclusive findings on diagnostic imaging of breast R92.8 Active 684386632 Problem Anxiety F41.9 Active 80043638 Problem Gastroesophageal reflux disease with esophagitis K21.0 Active 025545920 Problem Neuropathy G62.9 Active 641151731 ALLERGIES No Information ENCOUNTERS Encounter Location Date Diagnosis [facility] [address] [address] Jan, [facility] [address] [address] Jan, Anxiety F41.9 ; Low back pain M54.5 and Other chronic pain G89.29 [facility] [address] [address] Jan, Right upper quadrant pain R10.11 [facility] [address] [place] [id number] [place] [address] Nov, Epidermoid cyst of finger of right hand L72.0 [facility] [address] [address] Nov, [facility] [address] [place] [address] [id number] [place] [address] Oct, [facility] [address] [address] Oct, [place] [address] [place] [id number] [place] [address] 13 Oct, 2017 Right upper quadrant pain R10.11 ; Fibromyalgia M79.7 ; Neuropathy G62.9 and Family history of seizure disorder Z82.0 [place] [address] [address] [id number] [place] [address] Sep, Right upper quadrant pain R10.11 [place] [address] [address] Jul, [place] [address] [address] Apr, Closed minimally displaced zone II fracture of sacrum with routine healing, subsequent encounter S32.121D [facility] [place] [address] [address] Mar, Chest pain, unspecified type R07.9 ; Left-sided thoracic back pain, unspecified chronicity M54.6 and Muscle spasm of back M62.830 [facility] [place] [address] [address] Feb, Sore throat J02.9 ; Epigastric pain R10.13 and Gastroesophageal reflux disease with esophagitis K21.0 [place] [address] [place] [id number] [place] [address] Jan, [place] [address] [address] Dec, Anxiety F41.9 [place] [address] [address] Nov, [facility] [address] [address] Nov, Acute nonintractable headache, unspecified headache type R51 and Encounter for immunization Z23 [facility] [address] [id number] Sep, Dental examination Z01.20 [facility] [address] [place] [id number] [address] Sep, Breast pain, right N64.4 and Abnormal breast finding N64.59 [facility] [address] [id number] [id number] Sep, Encounter for dental examination and cleaning without abnormal findings Z01.20 [facility] [id number] [place] [address] Sep, Abnormal breast finding N64.59 [facility] [address] [id number] [place] [address] Sep, Encounter for dental examination and cleaning without abnormal findings Z01.20 [facility] [address] [address] Jul, [facility] [address] [place] [id number] [place] [address] Jul, [facility] [id number] [place] [address] Jul, Family history of malignant neoplasm of breast Z80.3 and Other abnormal and inconclusive findings on diagnostic imaging of breast R92.8 [facility] [address] [address] Jul, [facility] [address] [address] Jul, [facility] [address], [place] [address] Jul, [facility] [address], [place] [address] Jul, [facility] [address] [place] [address] Jul, Breast pain, right N64.4 [facility] [address], [place] [address] Jul, [address] [address] Jul, Breast pain, right N64.[address] [address] 16 Jun, 2016 Family history of malignant neoplasm of breast Z80.3 and Other abnormal and inconclusive findings on diagnostic imaging of breast R92.[address] [address] June, [address] [address] June, Tobacco abuse Z72.0 ; Tobacco abuse counseling Z71.6 ; Foot pain, left M79.672 and Lumbago with sciatica, left side M54.[address] [address] Dec, Thoracic neuritis M54.14 ; Alopecia L65.9 ; Dry skin L85.3 and Family history of hypothyroidism Z83.49 [facility] [place] [address] [address] Dec, Acute non-recurrent maxillary sinusitis J01.[address] [address] 17 Nov, [address] [address] Nov, Near syncope R55 ; Chronic fatigue R53.82 ; Thoracic neuritis M54.14 and Family history of thyroid disease Z83.49 [facility] [place] [address] [address] Oct, Thoracic neuritis M54.[address] [address] 02 Oct, 2014 Otitis media, left 382.9 and Upper respiratory infection 465.[address] [place] [address] 14 May, 2014 [facility] [place] [facility] [address] [id number] [place] [address] 13 May, 2014 [facility] [place] [facility] [address] [id number] [place] [address] Mar, 2014 [facility] [place] [facility] [address] [facility] [id number] [place] [address] Mar, 2014 [facility] [place] [facility] [address] [id number] [place] [address] Mar, 2014 [facility] [place] [facility] [address] [id number] [place] [address] Mar, 2014 [facility] [place] [facility] [address] [facility] [id number] [place] [address] Mar, 2014 [facility] [place] [facility] [address] [facility] [id number] [place] [address] Mar, 2014 [facility] [place] [facility] [address] [facility] [id number] [place] [address] Jan, [facility] [place] [facility] [address] [facility] [id number] [place] [address] Jan, [facility] [place] [facility] [address] [facility] [id number] [place] [address] Dec, [facility] [place] [facility] [address] [facility] [id number] [place] [address] Dec, [facility] [place] [facility] [address] [id number] [place] [address] Mar, [facility] [place] [facility] [address] [facility] [id number] [place] [address] Mar, [facility] [place] [facility] [address] [facility] [id number] [place] [address] Jan, [facility] [place] [facility] [address] [facility] [id number] [place] [address] Jan, [facility] [place] [facility] [address] [id number] [place] [address] Dec, [facility] [place] [facility] [address] [id number] [place] [address] Dec, [facility] [place] [facility] [address] [id number] [place] [address] Dec, [facility] [place] [facility] [address] [id number] [place] [address] Dec, [facility] [place] [facility] [address] [id number] [place] [address] Dec, [facility] [place] [facility] [address] [id number] [place] [address] Dec, [facility] [place] [facility] [address] [id number] [place] [address] Nov, [facility] [place] [facility] [address] [id number], [place] [address] Nov, [facility] [place] [facility] [address] [id number] [place] [address] Nov, [facility] [place] [facility] [address] [id number], [place] [address] Nov, [facility] [place] [facility] [address] [id number], [place] [address] Nov, [facility] [place] [facility] [address] [id number], [place] [address] Nov, [facility] [place] [facility] [address] [id number] [place] [address] 24 Nov, 2012 [facility] [place] [facility] [address] [id number], [place] [address] Nov, [facility] [place] [facility] [address] [id number], [place] [address] Nov, [facility] [place] [facility] [address] [id number] [place] [address] 16 Nov, 2012 [facility] [address] [id number] [place] [address] 16 Nov, 2012 [facility] [place] [facility] [address] [id number] [place] [address] Nov, [facility] [place] [facility] [address] [id number] [place] [address] Nov, 2012 [facility] [place] [facility] [address] [id number] [place] [address] Nov, [facility] [place] [facility] [address] [id number] [place] [address] Nov, [facility] [place] [facility] [address] [id number] [place] [address] Nov, [facility] [address] [id number] [place] [address] Nov, [facility] [place] [facility] [address] [id number] [place] [address] 30 Oct, 2012 [facility] [place] [facility] [address] [id number] [place] [address] 19 Oct, 2012 [facility] [place] [facility] [address] [id number] [place] [address] 19 Oct, 2012 [facility] [place] [facility] [address] [id number] [place] [address] 16 Oct, 2012 [facility] [place] [facility] [address] [id number] [place] [address] 10 Oct, 2012 [facility] [place] [facility] [address] [id number] [place] [address] 09 Oct, 2012 [facility] [place] [facility] [address] [id number] [place] [address] Feb, [facility] [place] [facility] [address] [id number], [place] [address] 11 Oct, 2011 [facility] [address] [facility] [id number], [place] [address] 07 Oct, 2011 [facility] [address] [id number], [place] [address] Oct, [facility] [address], [place] [address] Sep, [facility] [address], [place] [address] Sep, [facility] [address] [facility] [id number], [place] [address] Sep, [facility] [address] [id number], [place] [address] Sep, IMMUNIZATIONS No Known Immunizations SOCIAL HISTORY Never Assessed REASON FOR VISIT EMR-[facility] PLAN OF CARE VITAL SIGNS MEDICATIONS Unknown Medications RESULTS No Results PROCEDURES No Known procedures INSTRUCTIONS MEDICATIONS ADMINISTERED No Known Medications MEDICAL (GENERAL) HISTORY Type Description Date Surgical History tonsillectomy Surgical History total hysterectomy Surgical History breast reconstruction Surgical History right knee arthroscopy Surgical History bilateral mastectomy
--- OUTSIDE RECORDS SUMMARY | 2018-08-31 00:31 | XMS REPORT ---
Author Author Migration, Doctor Organization [facility] Address Unknown Phone Unavailable Care Team Providers Care Sas Etl Developer Name Role Phone Migration, Doctor Unavailable Unavailable PROBLEMS Type Condition ICD9-CM Code CLC53-UU Code Onset Dates Condition Status SNOMED Code Problem Chronic fatigue R53.82 Active 07252311 Problem Lumbago with sciatica, left side M54.42 Active 588109554 Problem Fibromyalgia M79.7 Active 061639830 Problem Other chronic pain G89.29 Active 18024200 Problem Other abnormal and inconclusive findings on diagnostic imaging of breast R92.8 Active 613842147 Problem Anxiety F41.9 Active 14238800 Problem Gastroesophageal reflux disease with esophagitis K21.0 Active 823592267 Problem Neuropathy G62.9 Active 879577485 ALLERGIES No Information ENCOUNTERS Encounter Location Date Diagnosis [facility] [address] [address] Jan, [facility] [address] [address] Jan, Anxiety F41.9 ; Low back pain M54.5 and Other chronic pain G89.29 [facility] [address] [address] Jan, Right upper quadrant pain R10.11 [facility] [address] [address] Nov, Epidermoid cyst of finger of right hand L72.0 [facility] [address] [address] Nov, [facility] [address] [place] [id number] [place] [address] Oct, [facility] [address] [address] Oct, [place] [address] [place] [id number] [place] [address] 13 Oct, 2017 Right upper quadrant pain R10.11 ; Fibromyalgia M79.7 ; Neuropathy G62.9 and Family history of seizure disorder Z82.0 [place] [address] [place] [id number] [place] [address] Sep, Right upper quadrant pain R10.11 [place] [address] [address] Jul, [place] [address] [address] Apr, Closed minimally displaced zone II fracture of sacrum with routine healing, subsequent encounter S32.121D [facility] [place] [address] [address] Mar, Chest pain, unspecified type R07.9 ; Left-sided thoracic back pain, unspecified chronicity M54.6 and Muscle spasm of back M62.830 [facility] IN [place] [address] [address] Feb, Sore throat J02.9 ; Epigastric pain R10.13 and Gastroesophageal reflux disease with esophagitis K21.0 [place] [address] [place] [id number] [place] [address] Jan, [place] [address] [address] Dec, Anxiety F41.9 [place] [address] [address] Nov, [facility] [address] [address] Nov, Acute nonintractable headache, unspecified headache type R51 and Encounter for immunization Z23 [facility] [address] [id number] Sep, Dental examination Z01.20 [facility] [address] [place] [id number] [address] Sep, Breast pain, right N64.4 and Abnormal breast finding N64.59 [facility] [address] [id number] [id number] Sep, Encounter for dental examination and cleaning without abnormal findings Z01.20 [facility] [address] [place] [id number] [place] [address] Sep, Abnormal breast finding N64.59 [facility] [address] [id number] [place] [address] Sep, Encounter for dental examination and cleaning without abnormal findings Z01.20 [facility] [address] [address] Jul, [facility] [id number] [place] [address] Jul, [facility] [address] [place] [address] Jul, Family history of malignant neoplasm of breast Z80.3 and Other abnormal and inconclusive findings on diagnostic imaging of breast R92.8 [facility] [address] [address] Jul, [facility] [address] [address] Jul, [facility] [address] [address] Jul, [facility] [address] [address] Jul, [facility] [address] [place] [address] Jul, Breast pain, right N64.4 [facility] [address] [address] Jul, [address] [address] Jul, Breast pain, right N64.[address] [address] 16 Jun, 2016 Family history of malignant neoplasm of breast Z80.3 and Other abnormal and inconclusive findings on diagnostic imaging of breast R92.[address] [address] June, [address] [address] June, Tobacco abuse Z72.0 ; Tobacco abuse counseling Z71.6 ; Foot pain, left M79.672 and Lumbago with sciatica, left side M54.[address] [address] Dec, Thoracic neuritis M54.14 ; Alopecia L65.9 ; Dry skin L85.3 and Family history of hypothyroidism Z83.49 [facility] [place] [address] [address] Dec, Acute non-recurrent maxillary sinusitis J01.[address] [address] 17 Nov, [address] [address] Nov, Near syncope R55 ; Chronic fatigue R53.82 ; Thoracic neuritis M54.14 and Family history of thyroid disease Z83.49 [facility] [place] [address] [address] Oct, Thoracic neuritis M54.[address] [address] 02 Oct, 2014 Otitis media, left 382.9 and Upper respiratory infection 465.[address] [place] [address] 14 May, 2014 [facility] [place] [facility] [address] [id number] [place] [address] 13 May, 2014 [facility] [place] [facility] [address] [id number] [place] [address] Mar, 2014 [facility] [place] [facility] [address] [facility] [id number] [place] [address] Mar, 2014 [facility] [place] [facility] [address] [id number] [place] [address] Mar, 2014 [facility] [place] [facility] [address] [id number] [place] [address] Mar, 2014 [facility] [place] [facility] [address] [facility] [id number] [place] [address] Mar, 2014 [facility] [place] [facility] [address] [facility] [id number] [place] [address] Mar, 2014 [facility] [place] [facility] [address] [facility] [id number] [place] [address] Jan, [facility] [place] [facility] [address] [facility] [id number] [place] [address] Jan, [facility] [place] [facility] [address] [facility] [id number] [place] [address] Dec, [facility] [place] [facility] [address] [facility] [id number] [place] [address] Dec, [facility] [place] [facility] [address] [id number] [place] [address] Mar, [facility] [place] [facility] [address] [facility] [id number] [place] [address] Mar, [facility] [place] [facility] [address] [facility] [id number] [place] [address] Jan, [facility] [place] [facility] [address] [facility] [id number] [place] [address] Jan, [facility] [place] [facility] [address] [id number] [place] [address] Dec, [facility] [place] [facility] [address] [id number] [place] [address] Dec, [facility] [place] [facility] [address] [id number] [place] [address] Dec, [facility] [place] [facility] [address] [id number] [place] [address] Dec, [facility] [place] [facility] [address] [id number] [place] [address] Dec, [facility] [place] [facility] [address] [id number] [place] [address] Dec, [facility] [place] [facility] [address] [id number] [place] [address] Nov, [facility] [place] [facility] [address] [id number] [address] Nov, [facility] [place] [facility] [address] [id number] [place] [address] Nov, [facility] [place] [facility] [address] [id number] [place] [address] Nov, [facility] [place] [facility] [address] [id number] [place] [address] Nov, [facility] [place] [facility] [address] [id number] [place] [address] Nov, [facility] [place] [facility] [address] [id number] [place] [address] 24 Nov, 2012 [facility] [place] [facility] [address] [id number] [place] [address] Nov, [facility] [place] [facility] [address] [id number] [place] [address] Nov, [facility] [place] [facility] [address] [id number] [place] [address] 16 Nov, 2012 [facility] [address] [id number] [place] [address] 16 Nov, 2012 [facility] [place] [facility] [address] [id number] [place] [address] Nov, [facility] [place] [facility] [address] [id number] [place] [address] Nov, 2012 [facility] [place] [facility] [address] [id number] [place] [address] Nov, [facility] [place] [facility] [address] [id number] [place] [address] Nov, [facility] [place] [facility] [address] [id number] [place] [address] Nov, [facility] [address] [id number] [place] [address] Nov, [facility] [place] [facility] [address] [id number] [place] [address] 30 Oct, 2012 [facility] [place] [facility] [address] [id number] [place] [address] 19 Oct, 2012 [facility] [place] [facility] [address] [id number] [place] [address] 19 Oct, 2012 [facility] [place] [facility] [address] [id number] [place] [address] 16 Oct, 2012 [facility] [place] [facility] [address] [id number] [place] [address] 10 Oct, 2012 [facility] [place] [facility] [address] [id number] [place] [address] 09 Oct, 2012 [facility] [place] [facility] [address] [id number] [place] [address] Feb, [facility] [place] [facility] [address] [id number] [address] 11 Oct, 2011 [facility] [address] [facility] [id number] [place] [address] Oct, [facility] [address] [id number] [address] Oct, [facility] [address] [facility] [id number] [place] [address] Sep, [facility] [id number] [address] Sep, [facility] [address] [facility] [id number] [place] [address] Sep, [facility] [address] [facility] [id number] [address] Sep, IMMUNIZATIONS No Known Immunizations SOCIAL HISTORY Never Assessed REASON FOR VISIT EMR-[facility] PLAN OF CARE VITAL SIGNS MEDICATIONS Medication Instructions Dosage Frequency Start Date End Date Duration Status Flagyl 500 mg 1 tablet by Oral route 2 times per day for 7 days Mar, Active Naproxen 250 mg 1 tablet by Oral route 2 times per day Oct, Active RESULTS No Results PROCEDURES No Known procedures INSTRUCTIONS MEDICATIONS ADMINISTERED No Known Medications MEDICAL (GENERAL) HISTORY Type Description Date Surgical History tonsillectomy Surgical History total hysterectomy Surgical History breast reconstruction Surgical History right knee arthroscopy Surgical History bilateral mastectomy
--- OUTSIDE RECORDS SUMMARY | 2018-08-31 00:31 | XMS REPORT ---
Author Author Migration, Doctor Organization [facility] Address Unknown Phone Unavailable Care Team Providers Care Solar Energy Sales Specialist Name Role Phone Migration, Doctor Unavailable Unavailable PROBLEMS Type Condition ICD9-CM Code TAC80-ZW Code Onset Dates Condition Status SNOMED Code Problem Chronic fatigue R53.82 Active 27799105 Problem Lumbago with sciatica, left side M54.42 Active 894678013 Problem Fibromyalgia M79.7 Active 068327337 Problem Other chronic pain G89.29 Active 96251284 Problem Other abnormal and inconclusive findings on diagnostic imaging of breast R92.8 Active 419206820 Problem Anxiety F41.9 Active 55500303 Problem Gastroesophageal reflux disease with esophagitis K21.0 Active 481877547 Problem Neuropathy G62.9 Active 654346680 ALLERGIES No Information ENCOUNTERS Encounter Location Date Diagnosis [facility] [address] [address] Jan, [facility] [address] [address] Jan, Anxiety F41.9 ; Low back pain M54.5 and Other chronic pain G89.29 [facility] [address] [address] Jan, Right upper quadrant pain R10.11 [facility] [address] [address] Nov, Epidermoid cyst of finger of right hand L72.0 [facility] [address] [address] Nov, [facility] [address] [place] [id number] [place] [address] Oct, [facility] [address] [address] Oct, [place] [address] [place] [id number] [place] [address] 13 Oct, 2017 Right upper quadrant pain R10.11 ; Fibromyalgia M79.7 ; Neuropathy G62.9 and Family history of seizure disorder Z82.0 [place] [address] [place] [id number] [place] [address] Sep, Right upper quadrant pain R10.11 [place] [address] [address] Jul, [place] [address] [address] Apr, Closed minimally displaced zone II fracture of sacrum with routine healing, subsequent encounter S32.121D [facility] [place] [address] [address] Mar, Chest pain, unspecified type R07.9 ; Left-sided thoracic back pain, unspecified chronicity M54.6 and Muscle spasm of back M62.830 [facility] [place] [address] [address] Feb, Sore throat J02.9 ; Epigastric pain R10.13 and Gastroesophageal reflux disease with esophagitis K21.0 [place] [address] [place] [id number] [place] [address] Jan, [place] [address] [address] Dec, Anxiety F41.9 [place] [address] [address] Nov, [facility] [address] [address] Nov, Acute nonintractable headache, unspecified headache type R51 and Encounter for immunization Z23 [facility] [address] [id number] Sep, Dental examination Z01.20 [facility] [address] [id number] [address] Sep, Breast pain, right N64.4 and Abnormal breast finding N64.59 [facility] [address] [id number] [id number] Sep, Encounter for dental examination and cleaning without abnormal findings Z01.20 [facility] [address] [place] [id number] [place] [address] Sep, Abnormal breast finding N64.59 [facility] [address] [id number] [place] [address] Sep, Encounter for dental examination and cleaning without abnormal findings Z01.20 [facility] [address] [address] Jul, [facility] [address] [place] [id number] [place] [address] Jul, [facility] [id number] [place] [address] Jul, Family history of malignant neoplasm of breast Z80.3 and Other abnormal and inconclusive findings on diagnostic imaging of breast R92.8 [facility] [address] [address] Jul, [facility] [address] [address] Jul, [facility] [address] [address] Jul, [facility] [address] [address] Jul, [facility] [id number] [place] [address] Jul, Breast pain, right N64.4 [facility] [address] [address] Jul, [address] [address] Jul, Breast pain, right N64.[address] [address] 16 Jun, 2016 Family history of malignant neoplasm of breast Z80.3 and Other abnormal and inconclusive findings on diagnostic imaging of breast R92.[address] [address] June, [address] [address] June, Tobacco abuse Z72.0 ; Tobacco abuse counseling Z71.6 ; Foot pain, left M79.672 and Lumbago with sciatica, left side M54.[address] [address] Dec, Thoracic neuritis M54.14 ; Alopecia L65.9 ; Dry skin L85.3 and Family history of hypothyroidism Z83.49 [facility] [place] [address] [address] Dec, Acute non-recurrent maxillary sinusitis J01.[address] [address] 17 Nov, [address] [address] Nov, Near syncope R55 ; Chronic fatigue R53.82 ; Thoracic neuritis M54.14 and Family history of thyroid disease Z83.49 [facility] [place] [address] [address] Oct, Thoracic neuritis M54.[address] [address] 02 Oct, 2014 Otitis media, left 382.9 and Upper respiratory infection 465.[address] [place] [address] 14 May, 2014 [facility] [place] [facility] [address] [id number] [place] [address] 13 May, 2014 [facility] [place] [facility] [address] [id number] [place] [address] Mar, 2014 [facility] [place] [facility] [address] [facility] [id number] [place] [address] Mar, 2014 [facility] [place] [facility] [address] [id number] [place] [address] Mar, 2014 [facility] [place] [facility] [address] [id number] [place] [address] Mar, 2014 [facility] [place] [facility] [address] [facility] [id number] [place] [address] Mar, 2014 [facility] [place] [facility] [address] [facility] [id number] [place] [address] Mar, 2014 [facility] [place] [facility] [address] [facility] [id number] [place] [address] Jan, [facility] [place] [facility] [address] [facility] [id number] [place] [address] Jan, [facility] [place] [facility] [address] [facility] [id number] [place] [address] Dec, [facility] [place] [facility] [address] [facility] [id number] [place] [address] Dec, [facility] [place] [facility] [address] [id number] [place] [address] Mar, [facility] [place] [facility] [address] [facility] [id number] [place] [address] Mar, [facility] [place] [facility] [address] [facility] [id number] [place] [address] Jan, [facility] [place] [facility] [address] [facility] [id number] [place] [address] Jan, [facility] [place] [facility] [address] [id number] [place] [address] Dec, [facility] [place] [facility] [address] [id number] [place] [address] Dec, [facility] [place] [facility] [address] [id number] [place] [address] Dec, [facility] [place] [facility] [address] [id number] [place] [address] Dec, [facility] [place] [facility] [address] [id number] [place] [address] Dec, [facility] [place] [facility] [address] [id number] [place] [address] Dec, [facility] [place] [facility] [address] [id number] [place] [address] Nov, [facility] [place] [facility] [address] [id number], [place] [address] Nov, [facility] [place] [facility] [address] [id number] [place] [address] Nov, [facility] [place] [facility] [address] [id number], [place] [address] Nov, [facility] [place] [facility] [address] [id number], [place] [address] Nov, [facility] [place] [facility] [address] [id number], [place] [address] Nov, [facility] [place] [facility] [address] [id number] [place] [address] 24 Nov, 2012 [facility] [place] [facility] [address] [id number], [place] [address] Nov, [facility] [place] [facility] [address] [id number] [address] Nov, [facility] [place] [facility] [address] [id number] [place] [address] 16 Nov, 2012 [facility] [address] [id number] [place] [address] 16 Nov, 2012 [facility] [place] [facility] [address] [id number] [place] [address] Nov, [facility] [place] [facility] [address] [id number] [place] [address] Nov, 2012 [facility] [place] [facility] [address] [id number] [place] [address] Nov, [facility] [place] [facility] [address] [id number] [place] [address] Nov, [facility] [place] [facility] [address] [id number] [place] [address] Nov, [facility] [address] [id number] [place] [address] Nov, [facility] [place] [facility] [address] [id number] [place] [address] 30 Oct, 2012 [facility] [place] [facility] [address] [id number] [place] [address] 19 Oct, 2012 [facility] [place] [facility] [address] [id number] [place] [address] 19 Oct, 2012 [facility] [place] [facility] [address] [id number] [place] [address] 16 Oct, 2012 [facility] [place] [facility] [address] [id number] [place] [address] 10 Oct, 2012 [facility] [place] [facility] [address] [id number] [place] [address] 09 Oct, 2012 [facility] [place] [facility] [address] [id number] [place] [address] Feb, [facility] [place] [facility] [address] [id number], [place] [address] 11 Oct, 2011 [facility] [address] [facility] [id number], [place] [address] 07 Oct, 2011 [facility] [address] [id number] [address] Oct, [facility] [address] [address] Sep, [facility] [address] [address] Sep, [facility] [address] [facility] [id number][place] [address] Sep, [facility] [id number] [address] Sep, IMMUNIZATIONS No Known Immunizations SOCIAL HISTORY Never Assessed REASON FOR VISIT EMR-[facility] [place] PLAN OF CARE VITAL SIGNS MEDICATIONS Unknown Medications RESULTS No Results PROCEDURES No Known procedures INSTRUCTIONS MEDICATIONS ADMINISTERED No Known Medications MEDICAL (GENERAL) HISTORY Type Description Date Surgical History tonsillectomy Surgical History total hysterectomy Surgical History breast reconstruction Surgical History right knee arthroscopy Surgical History bilateral mastectomy
--- NOTE | 2018-08-31 00:33 | ED Cough/URI ---
General Chief Complaint: Cough/Cold/Flu Symptoms Stated Complaint: CONGESTION,COUGH Nursing Triage Note: cough/congestion x4 weeks. Sepsis Screen: No Definite Risk Source: patient, spouse Exam Limitations: no limitations History of Present Illness Date Seen by Provider: Aug 31, 2018 Time Seen by Provider: 00:24 Initial Comments The patient presents to the ER by private conveyance with her spouse and chief complaint she's having 4 weeks of upper respiratory tract infection symptoms. No fevers or chills just runny nose sore throat swollen lymph nodes. She has no pain or feeling of underwater ears. No discharge from the nose. No pain in the face. The past week however she started having a nonproductive cough. No history of COPD or asthma. She stopped smoking years ago. She's been using BC powder for the achiness in her chest is made worse on deep inspiration or coughing. Allergies and Home Medications Allergies Coded Allergies: aspartame (Unverified Allergy, Unknown, 07/01/14) Uncoded Allergies: ZOFRAN (Allergy, Unknown, 04/27/17) Home Medications No Active Prescriptions or Reported Meds Patient Home Medication List Home Medication List Reviewed: Yes Review of Systems Review of Systems Constitutional: No chills, No diaphoresis EENTM: No ear discharge, No ear pain Respiratory: cough; No phlegm, No short of breath, No wheezing Cardiovascular: No chest pain, No edema Gastrointestinal: No abdominal pain, No constipation, No diarrhea, No nausea Genitourinary: No discharge, No dysuria Past Gauamew-Hmzwmw-Edjygn Hx Patient Social History Alcohol Use: Rarely Uses Recreational Drug Use: No Smoking Status: Former Smoker Type Used: Cigarettes Former Smoker, Quit: July 07, 2017 2nd Hand Smoke Exposure: No Recent Foreign Travel: No Contact w/Someone Who Travel: No Recent Infectious Disease Expo: No Recent Hopitalizations: No Immunizations Up To Date Tetanus Booster (TDap): Less than 5yrs PED Vaccines UTD: Yes Date of Influenza Vaccine: Feb 20, 2013 Seasonal Allergies Seasonal Allergies: No Past Medical History Surgeries: Yes (LEEP, MASTECTOMY, BREAST RECONSTRUCTION, WISDOM TEETH, LAPAROSCOPY) Abdominal, Adenoidectomy, Breast, Hysterectomy, Lumpectomy, Oophorectomy, Orthopedic, Tonsillectomy Respiratory: Yes Asthma Cardiac: Yes Irregular Heartbeat, Palpitations Neurological: Yes Headaches /Migraines : No 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 oz. 80.299612aw; 24.79 BMI Method:Stated General Appearance: WD/WN, no apparent distress Eyes: Bilateral Eye Normal Inspection, Bilateral Eye PERRL, Bilateral Eye EOMI HEENT: PERRL/EOMI, normal ENT inspection, TMs normal, pharyngeal erythema; No tonsillar exudate (status post tonsillectomy) Neck: non-tender, full range of motion, supple, normal inspection Respiratory: chest non-tender, lungs clear, normal breath sounds, no respiratory distress, no accessory muscle use Cardiovascular: normal peripheral pulses, regular rate, rhythm, no edema Progress/Results/Core Measures Suspected Sepsis Recent Fever Within 48 Hours: No Infection Criteria Present: None New/Unexplained Altered Menta: No Sepsis Screen: No Definite Risk SIRS Temperature:97.7 Pulse: 60 Respiratory Rate: 18 Blood Pressure 120 /79 Mean: 93 Results/Orders My Orders Orders - SEBASTIÁN PACHECO Chest Pa/Lat (2 View) (08/31/18 00:29) Vital Signs/I&O 08/31/18 08/31/18 00:23 00:23 Temp 97.7 Pulse 60 Resp 18 B/P (MAP) 120/79 (93) Pulse Ox 100 O2 Delivery Room Air Room Air Capillary Refill : Less Than 3 Seconds Blood Pressure Mean: 93 Progress Note : Time: 00:32 Progress Note Lung sounds are clear and the cough is nonproductive. No fever vital signs are completely aseptic. Reassuring clinical exam. She's had double mastectomy and breast biopsy for breast cancer so we will obtain a 2 view chest x-ray to rule out a post bronchial looking pneumonia. Otherwise we'll put her on some symptomatic medications. Diagnostic Imaging Diagonstic Imaging: Xray Plain Films/CT/US/NM/MRI: chest (2v) Comments No acute cardiopulmonary findings. Reviewed: Reviewed by Me Departure Impression Primary Impression: Upper respiratory infection Qualified Codes: J06.9 - Acute upper respiratory infection, unspecified Disposition: HOME, SELF-CARE Condition: Stable Departure-Patient Inst. Decision time for Depature: 01:20 Referrals: [facility] (PCP) Primary Care Physician DUGLAS FARR (Family) Primary Care Physician Patient Instructions: Cough, Adult (DC) Add. Discharge Instructions: Vapor rubs such as Vicks or Mentholatum as well as acih-rxv-lkpqhge nasal decongestant such as chlorpheniramine 4 mg every 4 hours as needed. Hot tea with honey, throat lozenges. Tessalon Perles 1-2 capsules every 6 hours as needed for cough. Follow-up primary care if you do not see improvement. All discharge instructions reviewed with patient and/or family. Voiced understanding. Scripts Benzonatate (Tessalon Perle) 100 Mg Capsule 100 MG PO Q6H PRN for COUGH, #20 CAP 0 Refills Prov: SEBASTIÁN PACHECO 08/31/18 SEBASTIÁN PACHECO Aug 31, 2018 00:33
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
[2018-08-31] MEDS ORDERED: BENZ-13 PO (01:23)
[2018-08-31 01:27] VITALS: BP 120/79
--- NOTE | 2018-08-31 07:18 | Diagnostic Imaging Report ---
CHEST PA/LAT (2 VIEW) Indication: Cough and shortness of air Comparison: 07/22/2017 Findings: No focal pneumonic consolidation, pleural effusion or pneumothorax. Normal heart size and pulmonary vasculature. Impression: No acute cardiopulmonary process. Dictated by: Dictated on workstation # [id number]
== END 2018-08-31 01:28 | disposition home or self-care (01) ==
LOC: EDUNIT# 23:57 → ER 08-31 00:03
DX: J06.9 Acute upper respiratory infection, unspecified (principal); J45.909 Unspecified asthma, uncomplicated; G43.909 Migraine, unspecified, not intractable, without status migrainosus; F41.9 Anxiety disorder, unspecified; Z88.8 Allergy status to other drugs, medicaments and biological substances; Z87.891 Personal history of nicotine dependence; Z90.710 Acquired absence of both cervix and uterus; Z90.89 Acquired absence of other organs; Z90.10 Acquired absence of unspecified breast and nipple
CPT/HCPCS: 71046

== ENCOUNTER 2018-12-21 19:58 | Emergency (ER) | payer OTHER, MEDICAID ==
[~2018-12-21] VITALS: Ht 165.1 cm; Wt 75.5 kg
[~2018-12-21 19:58] MED LIST changes: +BENZ-13 PO; -DOXY100T19 PO; +DOXY100T31 PO
[2018-12-21] MEDS ORDERED: LACTATED RINGERS 1,000 ML IV ONE (20:11)
[2018-12-21] MEDS ORDERED: KETOROLAC 30 MG/ML VIAL IVP ONE (20:15)
[2018-12-21] MEDS ORDERED: PROMETHAZINE INJ 25 MG/ML (PHENERGAN) AMP IVP ONE (20:15)
[2018-12-21] MEDS ORDERED: FAMOTIDINE 20MG/2ML IV (PEPCID) IVP ONE (20:15)
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
[2018-12-21] MEDS ORDERED: fentaNYL INJECTION 100 MCG/2 ML AMP IVP ONE (20:30)
[2018-12-21 20:40] LABS: EOSINOPHILS % (AUTO) 1 % (0-10); HEMATOCRIT 42 % (35-52); HEMOGLOBIN 13.9 G/DL (11.5-16.0); LYMPHOCYTES % (AUTO) 12 % (12-44); MEAN CORPUSCULAR HEMOGLOBIN 29 PG (25-34); MEAN CORPUSCULAR HGB CONC 33 G/DL (32-36); MEAN CORPUSCULAR VOLUME 87 FL (80-99); MEAN PLATELET VOLUME 10.5 FL (7.4-10.4); MONOCYTES % (AUTO) 5 % (0-12); PLATELET COUNT 309 10^3/uL (130-400); RED CELL DISTRIBUTION WIDTH 12.9 % (10.0-14.5); WHITE BLOOD COUNT 13.4 10^3/uL (4.3-11.0)
[2018-12-21 20:41] LABS: BASOPHILS % (AUTO) 0 % (0-10); EOSINOPHILS # (AUTO) 0.1 10^3/uL (0.0-0.3); LYMPHOCYTES # (AUTO) 1.6 X 10^3 (1.0-4.0); MONOCYTES # (AUTO) 0.7 X 10^3 (0.0-1.0); NEUTROPHILS % (AUTO) 82 % (42-75)
[2018-12-21 21:04] LABS: BUN/CREATININE RATIO 20; CALCIUM 9.8 MG/DL (8.5-10.1); CARBON DIOXIDE 21 MMOL/L (21-32); CHLORIDE 102 MMOL/L (98-107); CREATININE SERUM 0.84 MG/DL (0.60-1.30); GFR ESTIMATED > 60; GLUCOSE 107 MG/DL (70-105); POTASSIUM 4.3 MMOL/L (3.6-5.0); SODIUM 141 MMOL/L (135-145)
[2018-12-21 21:05] LABS: ALANINE AMINOTRANSFERASE 22 U/L (0-55); ALBUMIN 5.1 GM/DL (3.2-4.5); ALKALINE PHOSPHATASE 83 U/L (40-136); BILIRUBIN,TOTAL 0.6 MG/DL (0.1-1.0); TOTAL PROTEIN 8.7 GM/DL (6.4-8.2)
[2018-12-21] MEDS ORDERED: PROM25TA14 PO (21:13)
[2018-12-21 21:20] VITALS: BP 100/58
== END 2018-12-21 21:20 | disposition home or self-care (01) ==
LOC: EDUNIT# 19:58 → ER FS 19:59
DX: A08.4 Viral intestinal infection, unspecified (principal); J45.909 Unspecified asthma, uncomplicated; G43.909 Migraine, unspecified, not intractable, without status migrainosus; F41.9 Anxiety disorder, unspecified; Z90.710 Acquired absence of both cervix and uterus; Z88.8 Allergy status to other drugs, medicaments and biological substances; Z87.891 Personal history of nicotine dependence; Z90.89 Acquired absence of other organs
CPT/HCPCS: 36415; 80053; 85025; 96361; 96374; 96375; 99282

== ENCOUNTER 2019-06-11 20:33 | Emergency (ER) | payer MEDICAID, OTHER ==
[~2019-06-11] VITALS: Ht 165.1 cm; Wt 75.5 kg
--- NOTE | 2019-06-11 20:45 | NUR ---
FISH HOOK REMOVED BY ELMO DUNCAN, DISPOSABLE SUTURE KIT USED FOR TOOLS NO SUTURES DONE FOR THIS WOUND
[2019-06-11] MEDS ORDERED: AMOX-358 PO (20:52)
--- NOTE | 2019-06-11 20:52 | ED EENT ---
History of Present Illness General Stated Complaint: R EYELID FISH HOOKED Source: patient Exam Limitations: no limitations History of Present Illness Date Seen by Provider: Jun 11, 2019 Time Seen by Provider: 20:48 Initial Comments To ER with a fishhook in the right upper eyelid, she was fishing just prior to arrival when her son asked that the upper eyelid. Tetanus not up-to-date. Timing/Duration: abrupt Severity: moderate Location: eye (R) Associated Symptoms: denies symptoms Allergies and Home Medications Allergies Coded Allergies: aspartame (Unverified Allergy, Unknown, 07/01/14) Uncoded Allergies: ZOFRAN (Allergy, Unknown, 04/27/17) Home Medications Benzonatate 100 Mg Capsule, 100 MG PO Q6H PRN for COUGH Prescribed by: SEBASTIÁN PACHECO on 08/31/18 0123 Promethazine HCl 25 Mg Tablet, 25 MG PO Q6H PRN for NAUSEA/VOMITING Prescribed by: SEBASTIÁN PACHECO on 12/21/183 Patient Home Medication List Home Medication List Reviewed: Yes Review of Systems Review of Systems Constitutional: see HPI Eyes: See HPI Ears: No Symptoms Reported Nose: no symptoms reported Mouth: no symptoms reported Throat: no symptoms reported Respiratory: no symptoms reported Cardiovascular: no symptoms reported Musculoskeletal: no symptoms reported Past Uhymoyj-Rfwvgu-Rqhdmf Hx Patient Social History Type Used: Cigarettes Former Smoker, Quit: July 07, 2017 2nd Hand Smoke Exposure: No Recent Foreign Travel: No Contact w/Someone Who Travel: No Recent Hopitalizations: No Immunizations Up To Date Tetanus Booster (TDap): Less than 5yrs PED Vaccines UTD: Yes Date of Influenza Vaccine: Feb 20, 2013 Seasonal Allergies Seasonal Allergies: No Past Medical History Surgeries: Yes (LEEP, MASTECTOMY, BREAST RECONSTRUCTION, WISDOM TEETH, LAPAROSCOPY) Abdominal, Adenoidectomy, Breast, Hysterectomy, Lumpectomy, Oophorectomy, Orthopedic, Tonsillectomy Respiratory: Yes Asthma Cardiac: Yes Irregular Heartbeat, Palpitations Neurological: Yes Headaches /Migraines 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 +) 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 oz. 80.183570yo; 27.00 BMI Method:Stated General Appearance: WD/WN, no apparent distress Eyes: right eye other (the right eye has a single suzan of a trouble hook in the upper aspect of the upper eyelid. No evidence of globe injury no subconjunctival hemorrhage, extraocular muscles are intact, the posterior side of the upper eyelid is without apparent ecchymosis or penetration. It seems to be rather superficial in the eyelid.); bilateral eye PERRL, bilateral eye EOMI Ears: bilateral ear auricle normal, bilateral ear canal normal, bilateral ear TM normal Neck: non-tender, full range of motion Neurologic/Psychiatric: alert, normal mood/affect, oriented x 3 Procedures/Interventions I&D : Progress [place] removal from eyelid: An OpSite was placed over the upper and lower eyelids to keep them closed and to keep Betadine out of the eye. After this area was cleaned, 0.2 mL of lidocaine without epinephrine was instilled just parallel to the hook itself, ensuring not to go through the eyelid or into the globe. Once this was done the suzan was advanced through the skin, clipped off and then pulled out. I was reexamined and there was no evidence of globe injury. 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 Decision time for Depature: 20:51 Referrals: [facility] (PCP) Primary Care Physician DUGLAS FARR (Family) Primary Care Physician Patient Instructions: NO INSTRUCTIONS GIVEN Add. Discharge Instructions: 1. Return to ER for any concerns 2. Antibiotics as directed 3. Expect a bit of swelling, go home and put an icepack on the eyelid for 20 or 30 minutes, to that a couple times tonight. Return to ER for any worsening swelling redness infection concerns or anything else that bothers her. Scripts Amoxicillin/Potassium Clav (Augmentin 875-125 Tablet) 1 Each Tablet 1 EACH PO BID, #10 TAB 0 Refills Prov: ELMO DUNCAN APRN 06/11/19 ELMO DUNCAN APRN Jun 11, 2019 20:52
[2019-06-11 20:59] VITALS: BP 120/74
[2019-06-11] MEDS ORDERED: AUGMENTIN 875 MG TAB (AMOXICILLIN/CLAVULANATE) PO SCH (21:00)
[2019-06-11] MEDS ORDERED: TETANUS,DIPTH,PERTUSS P/F (BOOSTRIX) 0.5 ML VIAL IM ONE (21:00)
== END 2019-06-11 20:59 | disposition home or self-care (01) ==
LOC: EDUNIT# 20:33 → ER 20:34
DX: S00.251A Superficial foreign body of right eyelid and periocular area, initial encounter (principal); Z88.8 Allergy status to other drugs, medicaments and biological substances; Z87.891 Personal history of nicotine dependence; Z23 Encounter for immunization; W45.8XXA Other foreign body or object entering through skin, initial encounter
CPT/HCPCS: 90715

== ENCOUNTER 2020-01-13 19:08 | Emergency (ER) | payer OTHER ==
[~2020-01-13 19:08] MED LIST changes: +ALPR.25T; -ALPR0.254; +AMOX-358 PO
--- NOTE | 2020-01-13 20:15 | NUR ---
Blood Culture #2 drawn from R a/c et sent to lab.
[2020-01-13] MEDS ORDERED: KETOROLAC 30 MG/ML VIAL IVP ONE (20:30)
[2020-01-13] MEDS ORDERED: ONDANSETRON 4 MG/2 ML (SDV) Z0FRAN IVP ONE (20:30)
--- NOTE | 2020-01-13 20:43 | ED General ---
General Chief Complaint: Chest Pain Stated Complaint: COUGH/SOA/BODYACHES/CHEST PAIN Nursing Triage Note: Pt ambulates to room #7 with c/o SOA, body aches, dizziness, chills, dry cough, et chest discomfort. Pt reports s/s began on 01/12/20. Pt reports increase in chest discomfort when taking a deep breath. Pt unaware if she has been experiencing fever, d/t not having a thermometer. 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 A&OX4. Nursing Sepsis Screen: No Definite Risk Source of Information: Patient History of Present Illness Date Seen by Provider: Jan 13, 2020 Time Seen by Provider: 19:50 Initial Comments PT ARRIVES VIA POV FROM HOME PT STATES SHE BEGAN FEELING SICK YESTERDAY C/O HEADACHE C/O BODY ACHES C/O DYSPNEA, ESPECIALLY WITH MINIMAL EXERTION C/O CHEST HEAVINESS C/O RAPID HEART RATE WITH MINIMAL EXERTION C/O NAUSEA, NO VOMITING. NO DIARRHEA. 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 HAS NOT TAKEN ANYTHING FOR SYMPTOMS [place] [facility] [place] Medications Allergies Coded Allergies: aspartame (Unverified Allergy, Unknown, 07/01/14) Uncoded Allergies: ZOFRAN (Allergy, Unknown, 04/27/17) Home Medications Albuterol Sulfate 1 Puff Puff, 2 PUFF IH Q4H 1 PUFF = 90 MCG Prescribed by: LÁZARO ARRIAGA on 01/13/202144 Amoxicillin/Potassium Clav 1 Each Tablet, 1 EACH PO BID Prescribed by: ELMO DUNCAN on 06/11/192051 Benzonatate 100 Mg Capsule, 100 MG PO Q6H PRN for COUGH Prescribed by: SEBASTIÁN PACHECO on 08/31/18 012 Dexamethasone 6 Mg Tablet, 6 MG PO DAILY Prescribed by: LÁZARO ARRIAGA on 01/13/202144 Promethazine HCl 25 Mg Tablet, 25 MG PO Q6H PRN for NAUSEA/VOMITING Prescribed by: SEBASTIÁN PACHECO on 12/21/182112 Patient Home Medication List Home Medication List Reviewed: Yes Review of Systems Review of Systems Constitutional: see HPI, chills, dizziness, fever, malaise EENTM: nose congestion, throat pain Respiratory: see HPI, cough, short of breath Cardiovascular: see HPI, chest pain, palpitations Gastrointestinal: see HPI; No abdominal pain, No diarrhea; loss of appetite, nausea; No vomiting Genitourinary: no symptoms reported; No decreased output Musculoskeletal: see HPI (BODY ACHES) Skin: no symptoms reported Psychiatric/Neurological: See HPI, Headache Hematologic/Lymphatic: No Symptoms Reported Immunological/Allergic: no symptoms reported Past Vdartud-Wsqpwo-Lfcxpm Hx Past Med/Social Hx: Reviewed and Corrections made Patient Social History Alcohol Use: Denies Use Recreational Drug Use: No Smoking Status: Former Smoker Type Used: Cigarettes Former Smoker, Quit: July 07, 2017 2nd Hand Smoke Exposure: No Recent Foreign Travel: No Contact w/Someone Who Travel: No Recent Infectious Disease Expo: No Recent Hopitalizations: No Immunizations Up To Date Tetanus Booster (TDap): Less than 5yrs PED Vaccines UTD: Yes Date of Influenza Vaccine: Feb 20, 2013 Seasonal Allergies Seasonal Allergies: No Past Medical History Surgeries: Yes (LEEP, MASTECTOMY, BREAST RECONSTRUCTION, WISDOM TEETH, LAPAROSCOPY) Abdominal, Adenoidectomy, Breast, Hysterectomy, Lumpectomy, Oophorectomy, Orthopedic, Tonsillectomy Respiratory: Yes Asthma Cardiac: Yes Irregular Heartbeat, Palpitations Neurological: Yes Headaches /Migraines 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 +) 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 Sexually Transmitted Disease: No HIV/AIDS: No Genitourinary: No Gastrointestinal: No Musculoskeletal: Yes Arthritis Endocrine: No HEENT: No Cancer: No BRCA GENE + PT HAS HAD PROPHYLACTIC BILATERAL MASTECTOMY AND TOTAL HYSTERECTOMY WITH BSO ALSO HAS HAD CERVICAL DYSPLASIA WITH LEEP PROCEDURES PRIOR TO HYSTERECTOMY Psychosocial: Yes Anxiety Integumentary: No Blood Disorders: No Adverse Reaction/Blood Tranf: No Family Medical History No Pertinent Family Hx Physical Exam Vital Signs Vital Signs - First Documented Capillary Refill : Less Than 3 Seconds Height, Weight, BMI Height: 5'5.00" Weight: 178lbs. oz. [id number]; 27.00 BMI Method:Stated General Appearance: No Apparent Distress, WD/WN, Other (DOES NOT APPEAR ILL OR TO BE IN ANY DISCOMFORT OR DISTRESS. NO COUGH OR DYSPNEA NOTED) HEENT: PERRL/EOMI, TMs Normal, Normal ENT Inspection, Pharynx Normal Neck: Full Range of Motion, Normal Inspection, Non Tender, Supple Respiratory: Chest Non Tender, Normal Breath Sounds, No Accessory Muscle Use, No Respiratory Distress Cardiovascular: Regular Rate, Rhythm, No Edema, No JVD, No Murmur, Normal Peripheral Pulses Gastrointestinal: Normal Bowel Sounds, No Organomegaly, No Pulsatile Mass, Non Tender, Soft Back: Normal Inspection Extremity: Normal Inspection, Normal Range of Motion, Non Tender, No Calf Tenderness, No Pedal Edema Neurologic/Psychiatric: Alert, Oriented x3, No Motor/Sensory Deficits, Normal Mood/Affect, environmental specialist II-XII Norm as Tested Skin: Normal Color, Warm/Dry; No Rash; Tattoos/Piercings (MULTIPLE TATTOOS AND PIERCINGS) Progress/Results/Core Measures Suspected Sepsis Recent Fever Within 48 Hours: No Infection Criteria Present: Suspected New Infection New/Unexplained Altered Menta: No Sepsis Screen: No Definite Risk SIRS Temperature: Pulse: 77 Respiratory Rate: 18 Laboratory Tests 01/13/20 20:10: White Blood Count 8.4 Blood Pressure 111 /76 Mean: 88 Laboratory Tests 01/13/20 20:10: Creatinine 0.92, Platelet Count 337, Total Bilirubin 0.4 Results/Orders Lab Results Laboratory Tests Test 01/13/20 19:45 01/13/20 20:10 Range/Units Coronavirus 2019 (JOSE) Negative Negative Group A Streptococcus Screen NEGATIVE NEGATIVE White Blood Count 8.4 4.3-11.0 10^3/uL Red Blood Count 4.37 3.80-5.11 10^6/uL Hemoglobin 12.5 11.5-16.0 g/dL Hematocrit 38 35-52 % Mean Corpuscular Volume 88 80-99 fL Mean Corpuscular Hemoglobin 29 25-34 pg Mean Corpuscular Hemoglobin Concent 33 32-36 g/dL Red Cell Distribution Width 12.9 10.0-14.5 % Platelet Count 337 130-400 10^3/uL Mean Platelet Volume 10.1 9.0-12.2 fL Immature Granulocyte % (Auto) 0 % Neutrophils (%) (Auto) 52 42-75 % Lymphocytes (%) (Auto) 39 12-44 % Monocytes (%) (Auto) 7 0-12 % Eosinophils (%) (Auto) 2 0-10 % Basophils (%) (Auto) 1 0-10 % Neutrophils # (Auto) 4.4 1.8-7.8 10^3/uL Lymphocytes # (Auto) 3.2 1.0-4.0 10^3/uL Monocytes # (Auto) 0.6 0.0-1.0 10^3/uL Eosinophils # (Auto) 0.1 0.0-0.3 10^3/uL Basophils # (Auto) 0.1 0.0-0.1 10^3/uL Immature Granulocyte # (Auto) 0.0 0.0-0.1 10^3/uL Erythrocyte Sedimentation Rate 20 0-20 MM/HR D-Dimer 0.30 0.00-0.49 UG/ML Sodium Level 140 135-145 MMOL/L Potassium Level 3.5 L 3.6-5.0 MMOL/L Chloride Level 101 98-107 MMOL/L Carbon Dioxide Level 24 21-32 MMOL/L Anion Gap 15 H 5-14 MMOL/L Blood Urea Nitrogen 16 7-18 MG/DL Creatinine 0.92 0.60-1.30 MG/DL Estimat Glomerular Filtration Rate > 60 BUN/Creatinine Ratio 17 Glucose Level 91 70-105 MG/DL Calcium Level 9.2 8.5-10.1 MG/DL Corrected Calcium 8.5-10.1 MG/DL Total Bilirubin 0.4 0.1-1.0 MG/DL Aspartate Amino Transf (AST/SGOT) 20 5-34 U/L Alanine Aminotransferase (ALT/SGPT) 19 0-55 U/L Alkaline Phosphatase 75 40-136 U/L Lactate Dehydrogenase 210 125-220 U/L C-Reactive Protein High Sensitivity 0.32 0.00-0.50 MG/DL Total Protein 8.1 6.4-8.2 GM/DL Albumin 4.7 H 3.2-4.5 GM/DL Procalcitonin 0.01 <0.10 NG/ML Serum Test, Qualitative NEGATIVE NEGATIVE Monoscreen NEGATIVE NEGATIVE Micro Results Microbiology 01/13/20 Influenza Types A,B Antigen (ANA M) - Final, Complete My Orders Orders - LÁZARO ARRIAGA DO Ed Iv/Invasive Line Start (01/13/20 19:50) Ekg Tracing (01/13/20 19:50) Monitor-Rhythm Ecg Trace Only (01/13/20 19:50) Cbc With Automated Diff (01/13/20 19:50) Comprehensive Metabolic Panel (01/13/20 19:50) Fibrin Degradation Products (01/13/20 19:50) Procalcitonin (Pct) (01/13/20 19:50) Hs C Reactive Protein (01/13/20 19:50) Erythrocyte Sedimentation Rate (01/13/20 19:50) LDH (01/13/20 19:50) Blood Culture (01/13/20 19:50) Ekg Tracing (01/13/20 19:50) Influenza A And B Antigens (01/13/20 19:50) Chest 1 View, Ap/Pa Only (01/13/20 19:50) Hcg,Qualitative Serum (01/13/20 19:50) Covid 19 Inhouse Test (01/13/20 19:50) Monotest (01/13/20 20:12) Rapid Strep A Screen (01/13/20 20:12) Ondansetron Injection (Zofran Injectio (01/13/20 20:30) Ketorolac Injection (Toradol Injection) (01/13/20 20:30) Dexamethasone Injection (Decadron Injec (01/13/20 20:30) Coronavirus Sars-Cov-2 So 2018 (01/13/20 20:34) Medications Given in ED Current Medications Medications Dose Ordered Sig/Devante Route Start Time Stop Time Status Last Admin Dose Admin Dexamethasone Sodium Phosphate 6 mg ONCE ONCE IV 01/13/20 20:30 01/13/20 20:31 DC 01/13/20 20:35 6 MG Ketorolac Tromethamine 30 mg ONCE ONCE IVP 01/13/20 20:30 01/13/20 20:31 DC 01/13/20 20:33 30 MG Ondansetron HCl 4 mg ONCE ONCE IVP 01/13/20 20:30 01/13/20 20:31 DC 01/13/20 20:33 4 MG Vital Signs/I&O 01/13/20 01/13/20 01/13/20 19:41 19:41 21:57 Temp 36.1 36.1 Pulse 77 61 Resp 18 17 B/P (MAP) 111/76 (88) 101/62 (88) Pulse Ox 100 99 O2 Delivery Room Air Room Air Room Air Capillary Refill : Less Than 3 Seconds Blood Pressure Mean: 88 Progress Note : Progress Note PLACED IN ISOLATION ROOM PPE WORN AT ALL TIMES COVID-19 TESTING PERFORMED PT ADVISED OF NEED FOR QUARANTINE FOR ALL HOUSEHOLD MEMBERS NO HYPOXIA NO COUGH NO DYSPNEA UNEVENTFUL ER STAY ECG Initial ECG Impression Date: Jan 13, 2020 Initial ECG Impression Time: 19:42 Initial ECG Rate: 63 Initial ECG Rhythm: Normal Sinus Diagnostic Imaging Comments CXR--NO ACUTE PROCESS, PER RADIOLOGIST REPORT Reviewed: Reviewed by Me Departure Impression Primary Impression: Person under investigation for COVID-19 Disposition: 01 HOME, SELF-CARE Condition: Stable Departure-Patient Inst. [facility]: [facility] [place] Primary Care Physician DUGLAS FARR (Family) Primary Care Physician Patient Instructions: Coronavirus Disease 2019 (COVID-19) Overview, Coronavirus Disease 2019 (COVID-19) (DC), Preventing the Spread of an Infectious Disease Add. Discharge Instructions: LOTS OF CLEAR LIQUIDS TYLENOL 1 GRAM / MOTRIN 800 MG 4 TIMES A DAY FOR PAIN OR FEVER QUARANTINE FOR YOURSELF AND ALL HOUSEHOLD MEMBERS FOR 2 WEEKS OR UNTIL CLEARED BY DR OR HEALTH DEPARTMENT IF STILL SYMPTOMATIC AFTER 5-7 DAYS, YOU MAY GO TO [facility] FOR RE-TESTING. All discharge instructions reviewed with patient and/or family. Voiced under standing. Scripts Albuterol Sulfate (PROAIR HFA) 1 Puff Puff 2 PUFF IH Q4H, #1 EA 1 PUFF = 90 MCG Prov: LÁZARO ARRIAGA DO 01/13/20 Dexamethasone (Decadron) 6 Mg Tablet 6 MG PO DAILY, #10 TAB Prov: LÁZARO ARRIAGA DO 01/13/20 Work/School Note: Work Release Form Date Seen in the Emergency Department: Jan 13, 2020 Return to Work: Jan 27, 2020 Restrictions: Need Release from Doctor LÁZARO ARRIAGA DO Jan 13, 2020 20:43
[2020-01-13 20:46] LABS: BASOPHILS # (AUTO) 0.1 10^3/uL (0.0-0.1); BASOPHILS % (AUTO) 1 % (0-10); EOSINOPHILS # (AUTO) 0.1 10^3/uL (0.0-0.3); EOSINOPHILS % (AUTO) 2 % (0-10); HEMATOCRIT 38 % (35-52); HEMOGLOBIN 12.5 g/dL (11.5-16.0); LYMPHOCYTES # (AUTO) 3.2 10^3/uL (1.0-4.0); LYMPHOCYTES % (AUTO) 39 % (12-44); MEAN CORPUSCULAR HEMOGLOBIN 29 pg (25-34); MEAN CORPUSCULAR HGB CONC 33 g/dL (32-36); MEAN CORPUSCULAR VOLUME 88 fL (80-99); MEAN PLATELET VOLUME 10.1 fL (9.0-12.2); MONOCYTES # (AUTO) 0.6 10^3/uL (0.0-1.0); MONOCYTES % (AUTO) 7 % (0-12); NEUTROPHILS # (AUTO) 4.4 10^3/uL (1.8-7.8); NEUTROPHILS % (AUTO) 52 % (42-75); PLATELET COUNT 337 10^3/uL (130-400); WHITE BLOOD COUNT 8.4 10^3/uL (4.3-11.0)
--- NOTE | 2020-01-13 21:05 | Diagnostic Imaging Report ---
EXAMINATION: Portable erect AP chest at 8:10 PM INDICATION: Dyspnea The heart size is within normal limits and stable when compared to 08/31/2018. The lungs are generally clear. There is no evidence for failure, pneumonia or for pleural effusion. Each lung base is partially obscured by overlying breast/chest tissue. The mediastinum is not widened. The osseous structures are intact. IMPRESSION: There is no evidence for active disease. Dictated by: Dictated on workstation # [id number]
[2020-01-13 21:16] LABS: ALBUMIN 4.7 GM/DL (3.2-4.5); CHLORIDE 101 MMOL/L (98-107); POTASSIUM 3.5 MMOL/L (3.6-5.0); SODIUM 140 MMOL/L (135-145)
[2020-01-13 21:17] LABS: CALCIUM 9.2 MG/DL (8.5-10.1)
[2020-01-13 21:18] LABS: GLUCOSE 91 MG/DL (70-105); TOTAL PROTEIN 8.1 GM/DL (6.4-8.2)
[2020-01-13 21:19] LABS: CARBON DIOXIDE 24 MMOL/L (21-32)
[2020-01-13 21:20] LABS: BILIRUBIN,TOTAL 0.4 MG/DL (0.1-1.0)
[2020-01-13 21:21] LABS: ERYTHROCYTE SEDIMENTATION RATE 20 MM/HR (0-20)
[2020-01-13 21:22] LABS: ALKALINE PHOSPHATASE 75 U/L (40-136); CREATININE SERUM 0.92 MG/DL (0.60-1.30); GFR ESTIMATED > 60
[2020-01-13 21:23] LABS: BUN/CREATININE RATIO 17
[2020-01-13 21:25] LABS: ALANINE AMINOTRANSFERASE 19 U/L (0-55)
[2020-01-13] MEDS ORDERED: RT-ALBUINH IH (21:45)
[2020-01-13] MEDS ORDERED: DEXA6TAB6 PO (21:45)
[2020-01-13 21:57] VITALS: BP 101/62
== END 2020-01-13 21:57 | disposition home or self-care (01) ==
LOC: EDUNIT# 19:08 → ER 19:09
DX: Z20.828 Contact with and (suspected) exposure to other viral communicable diseases (principal); J45.909 Unspecified asthma, uncomplicated; Z87.891 Personal history of nicotine dependence; Z88.8 Allergy status to other drugs, medicaments and biological substances
CPT/HCPCS: 71045; 80053; 83615; 84145; 84703; 85025; 85379; 85652; 86141; 86308; 87040; 87430; 87804; 93005; 93041; 99284; U0002; 36415; 87635

== ENCOUNTER 2021-06-18 21:08 | Emergency (ER) | payer SELFPAY ==
[~2021-06-18] VITALS: Ht 165.1 cm; Wt 76.6 kg
[~2021-06-18 21:08] MED LIST changes: +CYCL10TA25; -CYCL10TA9; +DEXA6TAB6 PO; +RT-ALBUINH IH; -SULF1TAB35 PO; +SULF1TAB38 PO
[2021-06-18 22:00] LABS: BILIRUBIN,URINE NEGATIVE (NEGATIVE); CLARITY,URINE CLEAR; COLOR,URINE YELLOW; GLUCOSE, URINE (UA) NEGATIVE (NEGATIVE); KETONES,URINE NEGATIVE (NEGATIVE); LEUKOCYTE ESTERASE ,URINE TRACE (NEGATIVE); NITRITE,URINE NEGATIVE (NEGATIVE); PROTEIN,URINE NEGATIVE (NEGATIVE)
[2021-06-18 22:13] LABS: BASOPHILS % (AUTO) 1 % (0-10); EOSINOPHILS # (AUTO) 0.1 10^3/uL (0.0-0.3); EOSINOPHILS % (AUTO) 2 % (0-10); HEMATOCRIT 36 % (35-52); HEMOGLOBIN 11.8 g/dL (11.5-16.0); LYMPHOCYTES # (AUTO) 3.5 10^3/uL (1.0-4.0); LYMPHOCYTES % (AUTO) 42 % (12-44); MEAN CORPUSCULAR HEMOGLOBIN 29 pg (25-34); MEAN CORPUSCULAR HGB CONC 33 g/dL (32-36); MEAN CORPUSCULAR VOLUME 87 fL (80-99); MEAN PLATELET VOLUME 9.8 fL (9.0-12.2); MONOCYTES # (AUTO) 0.7 10^3/uL (0.0-1.0); MONOCYTES % (AUTO) 9 % (0-12); NEUTROPHILS # (AUTO) 3.9 10^3/uL (1.8-7.8); NEUTROPHILS % (AUTO) 48 % (42-75); PLATELET COUNT 312 10^3/uL (130-400); WHITE BLOOD COUNT 8.3 10^3/uL (4.3-11.0)
[2021-06-18] MEDS ORDERED: ONDANSETRON 4 MG/2 ML (SDV) Z0FRAN IVP ONE (22:15)
[2021-06-18] MEDS ORDERED: fentaNYL INJ 100 MCG/2 ML AMP IVP ONE (22:15)
--- NOTE | 2021-06-18 22:17 | ED Abdominal Pain ---
General Chief Complaint: Abdominal/GI Problems Stated Complaint: L SIDE ABD PAIN Nursing Triage Note: PATIENT STATES THAT APPROX. 3 HOURS AGO, SHE BEGAN TO HAVE LEFT SIDED ABD PAIN. SHE FIRST DESCRIBES IT DULL, BUT SINCE THEN IT HAS INCREASED IN INTENSITY. Source of Information: Patient Exam Limitations: No Limitations History of Present Illness Date Seen by Provider: Jun 18, 2021 Time Seen by Provider: 21:47 Initial Comments This 35-year-old young lady presents to the emergency room with left flank and abdominal pain that started a few hours ago. It started out as a dull subtle pain but rapidly progressed to a very intense pain rated as 9.5/10. She had associated nausea and even felt lightheaded due to the severity of pain. Walking makes the pain worse. She denies any vomiting, diarrhea, constipation, or urinary changes. She has no history of kidney stones. She has history of BRCA gene and elective hysterectomy and bilateral mastectomy. She reports having ribbonlike stools since her hysterectomy in 2015 and she attributes this to changes from the hysterectomy. Allergies and Home Medications Allergies Coded Allergies: aspartame (Unverified Allergy, Unknown, 07/01/14) Uncoded Allergies: ZOFRAN (Adverse Reaction, Mild, Vomiting, 06/18/21) No reaction to IV form. Aspartame in the sublingual form causes GI upset. Patient Home Medication List Home Medication List Reviewed: Yes Albuterol Sulfate (Proair Hfa) 1 Puff Puff, 2 PUFF IH Q4H Prescribed by: LÁZARO ARRIAGA on 01/13/202144 Amoxicillin/Potassium Clav (Augmentin 875-125 Tablet) 1 Each Tablet, 1 EACH PO BID Prescribed by: ELMO DUNCAN on 06/11/192051 Benzonatate (Tessalon Perle) 100 Mg Capsule, 100 MG PO Q6H PRN for COUGH Prescribed by: SEBASTIÁN PACHECO on 08/31/18122 Dexamethasone (Decadron) 6 Mg Tablet, 6 MG PO DAILY Prescribed by: LÁZARO ARRIAGA on 01/13/202144 Promethazine HCl (Promethazine Tablet) 25 Mg Tablet, 25 MG PO Q6H PRN for NAUSEA/VOMITING Prescribed by: SEBASTIÁN PACHECO on 12/21/182112 Review of Systems Review of Systems Constitutional: no symptoms reported EENTM: No Symptoms Reported Respiratory: No Symptoms Reported Cardiovascular: No Symptoms Reported Gastrointestinal: See HPI Genitourinary: No Symptoms Reported Musculoskeletal: no symptoms reported Skin: no symptoms reported Psychiatric/Neurological: No Symptoms Reported Endocrine: No Symptoms Reported Hematologic/Lymphatic: No Symptoms Reported Past Ntnrfgd-Kaabco-Yxqqoc Hx Patient Social History Tobacco Use?: No Substance use?: No Alcohol Use?: Yes Alcohol type: Other Alcohol Frequency: Once in a while Immunizations Up To Date Tetanus Booster (TDap): Less than 5yrs PED Vaccines UTD: Yes Seasonal Allergies Seasonal Allergies: No Past Medical History Surgeries: Yes (LEEP, MASTECTOMY, BREAST RECONSTRUCTION, WISDOM TEETH, LAPAROSCOPY) Abdominal, Adenoidectomy, Breast (Elective bilateral mastectomy), Hysterectomy, Lumpectomy, Oophorectomy, Orthopedic, Tonsillectomy Respiratory: Yes Asthma Cardiac: Yes Irregular Heartbeat, Palpitations Neurological: Yes Headaches /Migraines : No 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 +) 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 oz. 80.537148fl; 28.00 BMI Method:Stated General Appearance: WD/WN, mild distress HEENT: normal ENT inspection Neck: normal inspection Respiratory: lungs clear, normal breath sounds, no respiratory distress Cardiovascular: regular rate, rhythm, no edema, no murmur Gastrointestinal: normal bowel sounds, soft, no organomegaly; No distended; tenderness (Throughout the left abdomen) Extremities: normal inspection, no pedal edema Back: No CVA tenderness (R); CVA tenderness (L) (Minimal) Neurologic/Psychiatric: no motor/sensory deficits, alert, normal mood/affect, oriented x 3 Skin: normal color, warm/dry Progress/Results/Core Measures Results/Orders Lab Results Laboratory Tests Test 06/18/21 21:55 06/18/21 22:01 Range/Units Urine Color YELLOW Urine Clarity CLEAR Urine pH 6.0 5-9 Urine Specific [place] 1.025 H 1.016-1.022 Urine Protein NEGATIVE NEGATIVE Urine Glucose (UA) NEGATIVE NEGATIVE Urine Ketones NEGATIVE NEGATIVE Urine Nitrite NEGATIVE NEGATIVE Urine Bilirubin NEGATIVE NEGATIVE Urine Urobilinogen 0.2 < = 1.0 MG/DL Urine Leukocyte Esterase TRACE H NEGATIVE Urine RBC (Auto) TRACE-I H NEGATIVE Urine RBC 0-2 /HPF Urine WBC 0-2 /HPF Urine Squamous Epithelial Cells 0-2 /HPF Urine Crystals NONE /LPF Urine Bacteria FEW H /HPF Urine Casts NONE /LPF Urine Mucus MODERATE H /LPF Urine Culture Indicated YES White Blood Count 8.3 4.3-11.0 10^3/uL Red Blood Count 4.06 3.80-5.11 10^6/uL Hemoglobin 11.8 11.5-16.0 g/dL Hematocrit 36 35-52 % Mean Corpuscular Volume 87 80-99 fL Mean Corpuscular Hemoglobin 29 25-34 pg Mean Corpuscular Hemoglobin Concent 33 32-36 g/dL Red Cell Distribution Width 13.2 10.0-14.5 % Platelet Count 312 130-400 10^3/uL Mean Platelet Volume 9.8 9.0-12.2 fL Immature Granulocyte % (Auto) 0 % Neutrophils (%) (Auto) 48 42-75 % Lymphocytes (%) (Auto) 42 12-44 % Monocytes (%) (Auto) 9 0-12 % Eosinophils (%) (Auto) 2 0-10 % Basophils (%) (Auto) 1 0-10 % Neutrophils # (Auto) 3.9 1.8-7.8 10^3/uL Lymphocytes # (Auto) 3.5 1.0-4.0 10^3/uL Monocytes # (Auto) 0.7 0.0-1.0 10^3/uL Eosinophils # (Auto) 0.1 0.0-0.3 10^3/uL Basophils # (Auto) 0.0 0.0-0.1 10^3/uL Immature Granulocyte # (Auto) 0.0 0.0-0.1 10^3/uL Sodium Level 139 135-145 MMOL/L Potassium Level 3.8 3.6-5.0 MMOL/L Chloride Level 103 98-107 MMOL/L Carbon Dioxide Level 22 21-32 MMOL/L Anion Gap 14 5-14 MMOL/L Blood Urea Nitrogen 22 H 7-18 MG/DL Creatinine 0.92 0.60-1.30 MG/DL Estimat Glomerular Filtration Rate 83 BUN/Creatinine Ratio 24 Glucose Level 94 70-105 MG/DL Calcium Level 9.5 8.5-10.1 MG/DL Corrected Calcium 9.1 8.5-10.1 MG/DL Total Bilirubin 0.4 0.1-1.0 MG/DL Aspartate Amino Transf (AST/SGOT) 18 5-34 U/L Alanine Aminotransferase (ALT/SGPT) 21 0-55 U/L Alkaline Phosphatase 78 40-136 U/L Total Protein 7.4 6.4-8.2 GM/DL Albumin 4.5 3.2-4.5 GM/DL Lipase 19 8-78 U/L My Orders Orders - NAZ HILL MD Ua Culture If Indicated (06/18/21 21:47) Ondansetron Injection (Zofran Injectio (06/18/21 22:15) Fentanyl Inj (Sublimaze Injection) (06/18/21 22:15) Cbc With Automated Diff (06/18/21 22:06) Comprehensive Metabolic Panel (06/18/21 22:06) Lipase (06/18/21 22:06) Urine Culture (06/18/21 21:55) Ct Abdomen/Pelvis W (06/18/21 22:28) Ed Iv/Invasive Line Start (06/18/21 22:29) Lactated Ringers (Lr 1000 Ml Iv Solution (06/18/21 22:30) Iohexol Injection (Omnipaque 350 Mg/Ml 1 (06/18/21 23:15) Received Contrast (Hold Metformin- Contr (06/18/21 23:15) Ns (Ivpb) (Sodium Chloride 0.9% Ivpb Bag (06/18/21 23:15) Lidocaine 2% Viscous 15 Ml (Xylocaine Vi (06/19/21 00:45) Antacid Suspension (Mylanta Suspension (06/19/21 00:45) Ketorolac Injection (Toradol Injection) (06/19/21 01:45) Medications Given in ED Current Medications Medications Dose Ordered Sig/Devante Route Start Time Stop Time Status Last Admin Dose Admin Al Hydrox/Mg Hydrox/Simethicone 30 ml ONCE ONCE PO 06/19/21 00:45 06/19/21 00:46 DC 06/19/21 01:01 30 ML Fentanyl Citrate 50 mcg ONCE ONCE IVP 06/18/21 22:15 06/18/21 22:16 DC 06/18/21 22:14 50 MCG Iohexol 100 ml ONCE ONCE IV 06/18/21 23:15 06/18/21 23:18 DC 06/18/21 23:20 97 ML Ketorolac Tromethamine 30 mg ONCE ONCE IVP 06/19/21 01:45 06/19/21 01:46 DC 06/19/21 01:42 30 MG Lactated Ringer's 1,000 ml @ 0 mls/hr Q0M ONCE IV 06/18/21 22:30 06/18/21 22:31 DC 06/18/21 22:47 0 MLS/HR Lidocaine HCl 15 ml ONCE ONCE PO 06/19/21 00:45 06/19/21 00:46 DC 06/19/21 01:01 15 ML Ondansetron HCl 8 mg ONCE ONCE IVP 06/18/21 22:15 06/18/21 22:16 DC 06/18/21 22:14 8 MG Sodium Chloride 100 ml ONCE ONCE IV 06/18/21 23:15 06/18/21 23:18 DC 06/18/21 23:20 80 ML Vital Signs/I&O 06/18/21 06/19/21 21:54 01:57 Temp 36.1 36.5 Pulse 61 56 Resp 20 16 B/P (MAP) 115/75 (88) 100/73 Pulse Ox 100 98 O2 Delivery Room Air Room Air 06/19/21 00:00 Intake Total 1000 ml Balance 1000 ml Blood Pressure Mean: 88 Progress Progress Note #1: Time: 22:18 Progress Note Patient was seen and examined. Fentanyl and Zofran ordered for symptom management. Further work-up will be pending results. Progress Note #2: Progress Note Initial work-up was unremarkable. Risks and benefits of CT imaging were discussed with the patient. After reviewing these risks and benefits, she elects to proceed with CT scan. No acute findings were identified. Patient was further treated with Toradol. She had improvement in pain and was discharged. Progress Note #3: Progress Note I contacted patient by phone at 09:45 the morning of 06/19/21. She had minimal pain at that time. We did discuss the necessity of colonoscopy. She has never had a colonoscopy but has had notable stool characteristic changes over the past several years. In context of her BRCA mutation, I believe it is important for her to obtain a colonoscopy. She expressed understanding. Diagnostic Imaging Diagonstic Imaging: CT Plain Films/CT/US/NM/MRI: abdomen, pelvis Comments CT abdomen and pelvis viewed by me and stat rad report reviewed. No acute abnormalities were identified. Departure Impression Primary Impression: Left sided abdominal pain of unknown cause Disposition: HOME, SELF-CARE Condition: Stable Departure-Patient Inst. Decision time for Depature: 01:37 Referrals: [facility] [place]/Family) Primary Care Physician Patient Instructions: Abdominal Pain, Adult ED Add. Discharge Instructions: The exact cause of your abdominal pain is uncertain. Please follow-up with your primary care provider soon as possible for further evaluation. You may take Tylenol (acetaminophen) up to 1000 mg every 6 hours as needed. Add ibuprofen up to 600 mg every 6 hours as needed for additional pain relief. Start with a clear liquid diet. Gradually advance your diet with small quantities of bland food as tolerated. Return to the emergency room if you have worsening symptoms or develop new symptoms such as fever. All discharge instructions reviewed with patient and/or family. Voiced understanding. Copy Copies To 1: JESUSITA LUJAN JOSHUA T MD Jun 18, 2021 22:17
[2021-06-18 22:22] LABS: BACTERIA,URINE FEW /HPF; RBC,URINE 0-2 /HPF; SQUAMOUS EPITHELIAL CELL,UR 0-2 /HPF; WBC,URINE 0-2 /HPF
[2021-06-18 22:27] LABS: ALBUMIN 4.5 GM/DL (3.2-4.5)
[2021-06-18 22:28] LABS: POTASSIUM 3.8 MMOL/L (3.6-5.0)
[2021-06-18 22:29] LABS: CALCIUM 9.5 MG/DL (8.5-10.1)
[2021-06-18 22:30] LABS: TOTAL PROTEIN 7.4 GM/DL (6.4-8.2)
[2021-06-18] MEDS ORDERED: LACTATED RINGERS 1,000 ML IV ONE (22:30)
[2021-06-18 22:32] LABS: BILIRUBIN,TOTAL 0.4 MG/DL (0.1-1.0)
[2021-06-18 22:34] LABS: CREATININE SERUM 0.92 MG/DL (0.60-1.30)
[2021-06-18] MEDS ORDERED: IOHEXOL 350 MG/ML 100 ML (OMNIPAQUE 350) VIAL IV ONE (23:15)
[2021-06-18] MEDS ORDERED: HOLD METFORMIN - RECEIVED CONTRAST 20 ML VIAL IV SCH (23:15)
[2021-06-18] MEDS ORDERED: NS 100 ML (IVPB) BAG IV ONE (23:15)
[2021-06-19] MEDS ORDERED: ANTACID SUSP 30 ML UDC (MYLANTA) PO ONE (00:45)
[2021-06-19] MEDS ORDERED: LIDOCAINE 2% VISCOUS 15 ML UDC PO ONE (00:45)
[2021-06-19] MEDS ORDERED: KETOROLAC 30 MG/ML VIAL IVP ONE (01:45)
[2021-06-19 01:57] VITALS: BP 100/73
--- NOTE | 2021-06-19 05:52 | Diagnostic Imaging Report ---
PROCEDURE: CT abdomen and pelvis with contrast. TECHNIQUE: Multiple contiguous axial images were obtained through the abdomen and pelvis after administration of intravenous contrast. Auto Exposure Controls were utilized during the CT exam to meet ALARA standards for radiation dose reduction. All CT scans use one or more of the following dose optimizing techniques: automated exposure control, MA and/or KvP adjustment based on patient size and exam type or iterative reconstruction. INDICATION: Left abdominal pain COMPARISON: 12/25/2015 FINDINGS: Bilateral breast implants partially visualized. Visualized lung bases are clear. The liver and spleen are unremarkable. The adrenal glands are unremarkable. The pancreas is unremarkable. The gallbladder is unremarkable. Tiny subcentimeter hypodensities are identified within the bilateral kidneys which are too small to completely characterize. Otherwise, the kidneys are unremarkable without hydronephrosis. No aneurysmal dilatation of the abdominal aorta. The appendix is unremarkable. The urinary bladder is predominantly decompressed, but otherwise unremarkable. The uterus is not visualized, likely surgically absent. No abnormal adnexal mass lesion. No bowel obstruction or pneumatosis. No significant adenopathy, free air, or free fluid within the abdomen or pelvis. No acute osseous abnormality. IMPRESSION: No acute abnormality. Agree with preliminary interpretation. Dictated by: Dictated on workstation # [id number]
== END 2021-06-19 02:01 | disposition home or self-care (01) ==
LOC: EDUNIT# 21:08 → ER 21:09
DX: R10.9 Unspecified abdominal pain (principal); Z90.710 Acquired absence of both cervix and uterus; Z90.722 Acquired absence of ovaries, bilateral
CPT/HCPCS: 36415; 74177; 80053; 81000; 83690; 85025; 87088

== ENCOUNTER 2022-06-11 20:26 | Emergency (ER) | payer BC ==
[~2022-06-11] VITALS: Ht 165.6 cm; Wt 81.0 kg
[2022-06-11 20:26] VITALS: BP 119/80
[~2022-06-11 20:26] MED LIST changes: +ALBU8.5H6 IH; -RT-ALBUINH IH
--- NOTE | 2022-06-11 20:41 | ED Cardiac General ---
History of Present Illness General Stated Complaint: CHEST PAIN Source: patient History of Present Illness Date Seen by Provider: Jun 11, 2022 Time Seen by Provider: 20:30 Initial Comments PT ARRIVES VIA POV FROM HOME PT STATES SINCE AROUND 163 TODAY, SHE HAS BEEN HAVING: -CHEST PAIN--MID AND LOWER STERNAL AREA, AND LEFT LOWER CHEST -SHORTNESS OF BREATH -NAUSEA, NO VOMITING -DID BREAK OUT IN A SWEAT WHEN IT FIRST STARTED -PAIN IN SIDES OF NECK AND BOTH JAWS -PAIN IN UPPER BACK -LIGHTHEADEDNESS -HAD BRIEF PAIN IN LEFT CALF, GONE NOW NO SYNCOPE NO PALPITATIONS NO SWELLING IN LEGS/FEET OR PAIN IN CALVES NO FEVER OR COUGH OR RECENT ILLNESS NO RECENT LONG TRIPS OR PROLONGED SITTING. RATES PAIN 7/10, COMES AND GOES NOTHING WORSENS OR IMPROVES PAIN NO HISTORY OF SIMILAR STATES SHE HAS BEEN SHOPPING ALL DAY, WALKING IN STORES. SHE ATE [employer] FOR DINNER JUST PRIOR TO ARRIVAL, THEN CAME HERE FOOD AND EXERTION DOES NOT MAKE PAIN WORSE SHE DOES NOT TAKE ANY DAILY MEDICATIONS SHE HAS BRCA GENE AND HAS HAD PROPHYLACTIC BILATERAL MASTECTOMY WITH IMPLANTS, AND HYSTERECTOMY/BSO FOR PRECANCEROUS CELLS ON CERVIX. SHE SMOKED 1 PPD, QUIT 2 YEARS AGO, SHE DRINKS ON WEEKENDS--NO ALCOHOL TODAY, AND HAS HISTORY OF METH USE--SNORTED IT. SHE DENIES RECENT DRUG USE SHE STATES HER NORMAL BP IS 112/70 PCP:[facility] Allergies and Home Medications Allergies Coded Allergies: aspartame (Unverified Allergy, Unknown, 07/01/14) Uncoded Allergies: ZOFRAN (Adverse Reaction, Mild, Vomiting, 06/18/21) No reaction to IV form. Aspartame in the sublingual form causes GI upset. Patient Home Medication List Home Medication List Reviewed: Yes Albuterol Sulfate (Ventolin Hfa) 1 Puff Puff, 2 PUFF IH Q4H Prescribed by: LÁZARO ARRIAGA on 01/13/202144 Amoxicillin/Potassium Clav (Augmentin 875-125 Tablet) 1 Each Tablet, 1 EACH PO BID Prescribed by: ELMO DUNCAN on 06/11/192051 Benzonatate (Tessalon Perle) 100 Mg Capsule, 100 MG PO Q6H PRN for COUGH Prescribed by: SEBASTIÁN PACHECO on 08/31/18 012 Dexamethasone (Decadron) 6 Mg Tablet, 6 MG PO DAILY Prescribed by: LÁZARO ARRIAGA on 01/13/202144 Pantoprazole Sodium (Protonix) 40 Mg Tablet.dr, 40 MG PO DAILY Prescribed by: LÁZARO ARRIAGA on 06/12/22 0043 Promethazine HCl (Promethazine Tablet) 25 Mg Tablet, 25 MG PO Q6H PRN for NAUSEA/VOMITING Prescribed by: SEBASTIÁN PACHECO on 12/21/182112 Review of Systems Review of Systems Constitutional: see HPI, diaphoresis, dizziness EENTM: No Symptoms Reported Respiratory: See HPI; Denies Cough; Shortness of Air Cardiovascular: See HPI, Chest Pain; Denies Edema, Denies Irregular Heart Rate; Lightheadedness; Denies Palpitations, Denies Syncope Gastrointestinal: See HPI; Denies Abdominal Pain, Denies Diarrhea; Nausea; Burke es Vomiting Genitourinary: No Symptoms Reported Musculoskeletal: see HPI, back pain, neck pain Skin: no symptoms reported Psychiatric/Neurological: See HPI, Anxiety Endocrine: No Symptoms Reported Hematologic/Lymphatic: No Symptoms Reported Past Ngxxgyu-Cwdxua-Aezgvu Hx Patient Social History Tobacco Use?: Yes Tobacco type used: Cigarettes Smoking Status: Former Smoker Substance use?: Yes Substance type: Methamphetamine Alcohol Use?: Yes Alcohol type: Beer Alcohol Frequency: Couple times a week Immunizations Up To Date Tetanus Booster (TDap): Less than 5yrs PED Vaccines UTD: Yes Seasonal Allergies Seasonal Allergies: No Past Medical History Surgeries: Yes (LEEP;MASTECTOMY;BREAST RECONSTRUCTION;WISDOM TEETH;LAPAROSCOPY;HYST/BSO) Abdominal, Adenoidectomy, Breast, Hysterectomy, Lumpectomy, Oophorectomy, Orthopedic, Tonsillectomy Respiratory: Yes Asthma Cardiac: Yes Irregular Heartbeat, Palpitations Neurological: Yes Headaches /Migraines 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 +;HYST/BSO;BILAT MASTECTOMY) 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 CLAIMS NO RECENT USE, PER PT ON 06/11/22 BRCA GENE + PT HAS HAD PROPHYLACTIC BILATERAL MASTECTOMY WITH IMPLANTS/RECONSTRUCTION SURGERY AND TOTAL HYSTERECTOMY WITH BSO ALSO HAS HAD CERVICAL DYSPLASIA WITH LEEP PROCEDURES PRIOR TO HYSTERECTOMY Physical Exam Vital Signs Vital Signs - First Documented 06/11/22 20:26 Temp 36.5 Pulse 77 Resp 18 B/P (MAP) 119/80 (93) Capillary Refill : Height, Weight, BMI Height: 5'5.00" Weight: 178lbs. oz. 80.171774tg; 28.00 BMI Method:Stated General Appearance: No Apparent Distress, WD/WN HEENT: PERRL/EOMI Neck: Full Range of Motion, Normal Inspection, Non Tender, Supple; No Carotid Bruit, No JVD Respiratory: Chest Non Tender, Normal Breath Sounds, No Accessory Muscle Use, No Respiratory Distress Cardiovascular: Regular Rate, Rhythm, No Edema, No JVD, No Murmur, Normal Peripheral Pulses Gastrointestinal: Non Tender, Soft Extremity: Normal Capillary Refill, Normal Inspection, Normal Range of Motion, Non Tender, No Calf Tenderness, No Pedal Edema Neurologic/Psychiatric: Alert, Oriented x3, No Motor/Sensory Deficits, Normal 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, 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 Norm as Tested Skin: Normal Color, Warm/Dry, Tattoos/Piercings (EXTENSIVE TATTOOS AND PIERCINGS) Progress/Results/Core Measures Results/Orders Lab Results Laboratory Tests Test 06/11/22 20:35 06/12/22 00:00 Range/Units White Blood Count 8.1 4.3-11.0 10^3/uL Red Blood Count 4.30 3.80-5.11 10^6/uL Hemoglobin 12.7 11.5-16.0 g/dL Hematocrit 38 35-52 % Mean Corpuscular Volume 89 80-99 fL Mean Corpuscular Hemoglobin 30 25-34 pg Mean Corpuscular Hemoglobin Concent 33 32-36 g/dL Red Cell Distribution Width 13.1 10.0-14.5 % Platelet Count 300 130-400 10^3/uL Mean Platelet Volume 10.1 9.0-12.2 fL Immature Granulocyte % (Auto) 0 % Neutrophils (%) (Auto) 56 42-75 % Lymphocytes (%) (Auto) 35 12-44 % Monocytes (%) (Auto) 6 0-12 % Eosinophils (%) (Auto) 3 0-10 % Basophils (%) (Auto) 1 0-10 % Neutrophils # (Auto) 4.5 1.8-7.8 10^3/uL Lymphocytes # (Auto) 2.8 1.0-4.0 10^3/uL Monocytes # (Auto) 0.5 0.0-1.0 10^3/uL Eosinophils # (Auto) 0.2 0.0-0.3 10^3/uL Basophils # (Auto) 0.1 0.0-0.1 10^3/uL Immature Granulocyte # (Auto) 0.0 0.0-0.1 10^3/uL Prothrombin Time 12.5 12.2-14.7 SEC INR Comment 0.9 0.8-1.4 Activated Partial Thromboplast Time 30 24-35 SEC D-Dimer 0.69 H 0.00-0.49 UG/ML Sodium Level 142 135-145 MMOL/L Potassium Level 3.4 L 3.6-5.0 MMOL/L Chloride Level 104 98-107 MMOL/L Carbon Dioxide Level 23 21-32 MMOL/L Anion Gap 15 H 5-14 MMOL/L Blood Urea Nitrogen 13 7-18 MG/DL Creatinine 0.83 0.60-1.30 MG/DL Estimat Glomerular Filtration Rate 93 BUN/Creatinine Ratio 16 Glucose Level 116 H 70-105 MG/DL Calcium Level 9.4 8.5-10.1 MG/DL Corrected Calcium 8.5-10.1 MG/DL Magnesium Level 2.1 1.6-2.4 MG/DL Total Bilirubin 0.3 0.1-1.0 MG/DL Aspartate Amino Transf (AST/SGOT) 38 H 5-34 U/L Alanine Aminotransferase (ALT/SGPT) 50 0-55 U/L Alkaline Phosphatase 97 40-136 U/L Total Creatine Kinase 65 29-168 U/L Creatine Kinase MB 0.5 <6.6 NG/ML Myoglobin 22.4 10.0-92.0 NG/ML Troponin I < 0.028 < 0.028 <0.028 NG/ML B-Type Natriuretic Peptide 24.9 <100.0 PG/ML Total Protein 8.1 6.4-8.2 GM/DL Albumin 4.6 H 3.2-4.5 GM/DL Amylase Level 32 25-125 U/L Lipase 22 8-78 U/L My Orders Orders - LÁZARO ARRIAGA DO Cbc With Automated Diff (06/11/22:29) Magnesium (06/11/22:29) Chest 1 View, Ap/Pa Only (06/11/22:) Ekg Tracing (06/11/22:) Comprehensive Metabolic Panel (06/11/22:) Myoglobin Serum (06/11/22:) Protime With Inr (06/11/22:) Partial Thromboplastin Time (06/11/22:) O2 (06/11/22:) Monitor-Rhythm Ecg Trace Only (06/11/22:) Ed Iv/Invasive Line Start (06/11/22:29) Creatine Kinase (06/11/22:) Creatine Kinase Mb (06/11/22:) Lipase (06/11/22:) Amylase (06/11/22:29) Bnp Kailash (06/11/22:) Fibrin Degradation Products (06/11/22:) Troponin I Kailash (06/11/22:) Aspirin Chewable Tablet (Baby Aspirin Ch (06/11/22 20:45) Ed Iv/Invasive Line Start (06/11/22 20:41) Ns Iv 1000 Ml (Sodium Chloride 0.9%) (06/11/22 20:45) Nitroglycerin Ointment (Nitrobid Ointme (06/11/22 20:45) Ct Angio Chest W (R/O Pe) (06/11/22 21:16) Iohexol Injection (Omnipaque 350 Mg/Ml 1 (06/11/22 21:30) Ns (Ivpb) (Sodium Chloride 0.9% Ivpb Bag (06/11/22 21:30) Pantoprazole Injection (Protonix Injecti (06/11/22 22:15) Ed Iv/Invasive Line Start (06/11/22 22:53) Lactated Ringers (Lr 1000 Ml Iv Solution (06/11/22 23:00) Ekg Tracing (06/11/22 23:23) Troponin I Kailash (06/11/22 23:23) Medications Given in ED Current Medications Medications Dose Ordered Sig/Devante Route Start Time Stop Time Status Last Admin Dose Admin Aspirin 324 mg ONCE ONCE PO 06/11/22 20:45 06/11/22 20:46 DC 06/11/22 20:44 324 MG Iohexol 100 ml ONCE ONCE IV 06/11/22 21:30 06/11/22 21:31 DC 06/11/22 21:39 85 ML Lactated Ringer's 1,000 ml @ 0 mls/hr Q0M ONCE IV 06/11/22 23:00 06/11/22 23:01 DC 06/11/22 23:00 0 MLS/HR Nitroglycerin 0.5 inch ONCE ONCE TOP 06/11/22 20:45 06/11/22 20:46 DC 06/11/22 20:48 0.5 INCH Pantoprazole 40 mg ONCE ONCE IV 06/11/22 22:15 06/11/22 22:16 DC 06/11/22 22:22 40 MG Sodium Chloride 100 ml ONCE ONCE IV 06/11/22 21:30 06/11/22 21:31 DC 06/11/22 21:39 80 ML Vital Signs/I&O 06/11/22 20:26 Temp 36.5 Pulse 77 Resp 18 B/P (MAP) 119/80 (93) 06/12/22 00:00 Intake Total 1000 ml Balance 1000 ml Progress Progress Note : Progress Note GIVEN: -ASPIRIN -NITROPASTE -IV FLUIDS -PROTONIX INITIAL BP 119 SYSTOLIC, HR IN 70'S, O2 SATS UPPER 90'S ON ROOM AIR DIFFERENTIAL DX INCLUDES: ACUTE CORONARY SYNDROME, P.E., PNEUMONIA, ANXIETY, ARRHYTHMIA, CHEST WALL PAIN PAIN FREE WITH THE ABOVE. BP DID TREND DOWN INTO 90'S SYSTOLIC, SO NITROPASTE WAS REMOVED AND IV FLUIDS CONTINUED BP BACK UP TO >[address] CHEST ANGIOGRAM IS NEGATIVE FOR PE OR ACUTE PROCESS. WILL DO REPEAT 3 HOUR TROPONIN AND EKG BOTH REPEAT TROPONIN AND EKG ARE NEGATIVE/UNCHANGED PT IS SYMPTOM-FREE FOR REMAINDER OF ER STAY VITALS ARE STABLE PT SLEPT FOR MOST OF ER STAY PT IS SYMPTOM-FREE AT DISMISSAL REVIEWED PRIOR RECORDS--ALL ER VISITS FOR VARIOUS COMPLAINTS DISCUSSED TEST RESULTS, ANTICIPATED COURSE, SYMPTOMATIC TREATMENT, MEDICATIONS, NEED FOR FOLLOW UP AND RETURN PRECAUTIONS. Initial ECG Impression Date: Jun 11, 2022 Initial ECG Impression Time: 20:30 Initial ECG Rate: 69 Initial ECG Rhythm: Normal Sinus Initial ECG Intervals: Normal Initial ECG Impression: Normal Initial ECG Comparisson: No Previous ECG Available Comment INTERPRETED BY ME EKG : EKG Time: 23:29 Rate: 49 Rhythm: Normal Sinus Intervals: Normal ECG Comparisson: Unchanged Comment INTERPRETED BY ME Diagnostic Imaging Comments CXR--PER RADIOLOGIST REPORT AT 2142 FINDINGS: Single frontal view of the chest demonstrates normal heart size and pulmonary vascularity. The lungs are well aerated and clear. No large pleural effusion or pneumothorax is seen. The visualized osseous structures show no acute abnormalities. IMPRESSION: 1. No acute cardiopulmonary process. CT CHEST ANGIOGRAM--PER RADIOLOGIST REPORT AT 2202 FINDINGS: No abnormal intraluminal filling defect is seen within the pulmonary arteries to the segmental division. Thoracic aorta is normal in course and caliber. By NASCET criteria, there is no focal significant stenosis. There is no evidence of dissection or aneurysm. Heart size is within normal limits. There is no large pericardial effusion. No pathologically enlarged or morphologically abnormal adenopathy is seen within the mediastinum, andrew or axilla. Lungs are clear. There is no focal consolidation, large effusion or pneumothorax. Punctate 4 mm subpleural micronodule is noted within the lateral segment of the right middle lobe (image 68, series 3). No other suspicious pulmonary nodule or mass is seen. Osseous structures show no acute abnormality. Included portions of the upper abdomen are unremarkable as well. IMPRESSION: 1. No pulmonary embolus. 2. No other acute cardiopulmonary process. 3. Small micronodule within the right middle lobe. If patient is in a high-risk category, such as history of smoking, one-year follow-up could be performed to ensure stability. Reviewed: Reviewed by Me Departure Impression Primary Impression: Chest pain Disposition: 01 HOME, SELF-CARE Condition: Improved Departure-Patient Inst. Decision time for Depature: 00:40 Referrals: [facility] (PCP/Family) Primary Care Physician Patient Instructions: Chest Pain, Adult ED Add. Discharge Instructions: HOME, REST TYLENOL AND MOTRIN NEEDED FOR PAIN FOLLOW UP WITH [facility] IN 1-2 DAYS, RETURN TO ER IF SYMPTOMS RETURN. Scripts Pantoprazole Sodium (Protonix) 40 Mg Tablet.dr 40 MG PO DAILY, #15 TAB Prov: LÁZARO ARRIAGA DO 06/12/22 LÁZARO ARRIAGA DO Jun 11, 2022 20:41
[2022-06-11] MEDS ORDERED: ASPIRIN 81 MG CHEW (CHILDREN'S ASA) PO ONE (20:45)
[2022-06-11] MEDS ORDERED: NS IV 1000 ML 1,000 ML IV SCH (20:45)
[2022-06-11] MEDS ORDERED: NITROGLYCERIN 2% OINT 1 GM UNIT DOSE PACKET TOP ONE (20:45)
[2022-06-11 20:47] LABS: BASOPHILS # (AUTO) 0.1 10^3/uL (0.0-0.1); BASOPHILS % (AUTO) 1 % (0-10); EOSINOPHILS # (AUTO) 0.2 10^3/uL (0.0-0.3); EOSINOPHILS % (AUTO) 3 % (0-10); HEMATOCRIT 38 % (35-52); HEMOGLOBIN 12.7 g/dL (11.5-16.0); LYMPHOCYTES # (AUTO) 2.8 10^3/uL (1.0-4.0); LYMPHOCYTES % (AUTO) 35 % (12-44); MEAN CORPUSCULAR HEMOGLOBIN 30 pg (25-34); MEAN CORPUSCULAR HGB CONC 33 g/dL (32-36); MEAN CORPUSCULAR VOLUME 89 fL (80-99); MEAN PLATELET VOLUME 10.1 fL (9.0-12.2); MONOCYTES # (AUTO) 0.5 10^3/uL (0.0-1.0); MONOCYTES % (AUTO) 6 % (0-12); NEUTROPHILS # (AUTO) 4.5 10^3/uL (1.8-7.8); NEUTROPHILS % (AUTO) 56 % (42-75); PLATELET COUNT 300 10^3/uL (130-400); WHITE BLOOD COUNT 8.1 10^3/uL (4.3-11.0)
[2022-06-11 21:02] LABS: ALBUMIN 4.6 GM/DL (3.2-4.5); CHLORIDE 104 MMOL/L (98-107); INR 0.9 (0.8-1.4); POTASSIUM 3.4 MMOL/L (3.6-5.0); PROTHROMBIN TIME PATIENT 12.5 SEC (12.2-14.7); SODIUM 142 MMOL/L (135-145)
[2022-06-11 21:04] LABS: CALCIUM 9.4 MG/DL (8.5-10.1)
[2022-06-11 21:05] LABS: AMYLASE 32 U/L (25-125); GLUCOSE 116 MG/DL (70-105); TOTAL PROTEIN 8.1 GM/DL (6.4-8.2)
[2022-06-11 21:06] LABS: CARBON DIOXIDE 23 MMOL/L (21-32)
[2022-06-11 21:07] LABS: BILIRUBIN,TOTAL 0.3 MG/DL (0.1-1.0)
[2022-06-11 21:08] LABS: ALKALINE PHOSPHATASE 97 U/L (40-136); CREATININE SERUM 0.83 MG/DL (0.60-1.30); GFR ESTIMATED 93
[2022-06-11 21:09] LABS: BUN/CREATININE RATIO 16
[2022-06-11 21:11] LABS: ALANINE AMINOTRANSFERASE 50 U/L (0-55)
--- NOTE | 2022-06-11 21:11 | Diagnostic Imaging Report ---
INDICATION: Chest pain, COMPARISON: 01/13/2020 FINDINGS: Single frontal view of the chest demonstrates normal heart size and pulmonary vascularity. The lungs are well aerated and clear. No large pleural effusion or pneumothorax is seen. The visualized osseous structures show no acute abnormalities. IMPRESSION: 1. No acute cardiopulmonary process. Dictated by: Dictated on workstation # [id number]
[2022-06-11 21:12] LABS: MAGNESIUM 2.1 MG/DL (1.6-2.4)
[2022-06-11 21:14] LABS: CREATINE KINASE 65 U/L (29-168); LIPASE 22 U/L (8-78)
[2022-06-11 21:20] LABS: CREATINE KINASE MB 0.5 NG/ML (<6.6)
[2022-06-11] MEDS ORDERED: IOHEXOL 350 MG/ML 100 ML (OMNIPAQUE 350) VIAL IV ONE (21:30)
[2022-06-11] MEDS ORDERED: NS 100 ML (IVPB) BAG IV ONE (21:30)
--- NOTE | 2022-06-11 21:50 | Diagnostic Imaging Report ---
INDICATION: Chest pain. Recent hysterectomy. COMPARISON: None. TECHNIQUE: Routine postcontrast CTA of the chest was performed. Contrast was injected intravenously and timed for optimal opacification of the arterial structures. Multiplanar and 3D reformats were also created and reviewed. Auto Exposure Controls were utilized during the CT exam to meet ALARA standards for radiation dose reduction. FINDINGS: No abnormal intraluminal filling defect is seen within the pulmonary arteries to the segmental division. Thoracic aorta is normal in course and caliber. By NASCET criteria, there is no focal significant stenosis. There is no evidence of dissection or aneurysm. Heart size is within normal limits. There is no large pericardial effusion. No pathologically enlarged or morphologically abnormal adenopathy is seen within the mediastinum, andrew or axilla. Lungs are clear. There is no focal consolidation, large effusion or pneumothorax. Punctate 4 mm subpleural micronodule is noted within the lateral segment of the right middle lobe (image 68, series 3). No other suspicious pulmonary nodule or mass is seen. Osseous structures show no acute abnormality. Included portions of the upper abdomen are unremarkable as well. IMPRESSION: 1. No pulmonary embolus. 2. No other acute cardiopulmonary process. 3. Small micronodule within the right middle lobe. If patient is in a high-risk category, such as history of smoking, one-year follow-up could be performed to ensure stability. Dictated by: Dictated on workstation # [id number]
[2022-06-11] MEDS ORDERED: PANTOPRAZOLE 40 MG (PROTONIX) VIAL IV ONE (22:15)
[2022-06-11] MEDS ORDERED: LACTATED RINGERS 1,000 ML IV ONE (23:00)
[2022-06-12] MEDS ORDERED: PANT40TA2 PO (00:43)
== END 2022-06-12 00:58 | disposition home or self-care (01) ==
LOC: EDUNIT# 20:26 → ER 20:29
DX: R07.89 Other chest pain (principal); Z87.891 Personal history of nicotine dependence; Z28.310 Unvaccinated for COVID-19
CPT/HCPCS: 36415; 71045; 71275; 80053; 82150; 82550; 82553; 83690; 83735; 83874; 83880; 84484; 85025; 85379; 85610; 85730; 93005; 93041